=== PATIENT | male | born 1930 | race Caucasian/White ===

== ENCOUNTER 2019-01-27 14:49 | Inpatient (IN) | payer MEDICARE ==
[~2019-01-27] VITALS: Ht 165.1 cm; Wt 59.5 kg
[~2019-01-27 14:49] MED LIST: ALPRAZOLAM0.25 M1 PO; ASPIRIN81 M2 PO; FERROUS GLUCON324 M1 PO; LACTOBACILLUS; LIDOCAINE; POTASSIUM 8 MEQ; TERAZOSIN HCL2 M1 PO; Z.0.AMIODARONE HCL20 PO; Z.0.COUMADIN2.5 MG PO; Z.0.FINASTERIDE5 MG PO; Z.0.LEVOTHYROXINE25 PO; Z.0.MAGNESIUM400 MG; Z.0.METOPROLOL SUCC5 PO; Z.0.OMEPRAZOLE20 MG PO; Z.0.SIMVASTATIN10 MG PO; Z.0.TAMSULOSIN HCL0. PO; Z.0.ULTRAM50 MG PO; [UNRECOGNIZED DRUG - OTHER]
[2019-01-27 15:30] LABS: BASOPHILS # (AUTO) 0.1 (0.0-0.1); BASOPHILS % 0.6 % (0.0-1.0); EOSINOPHILS % 0.4 % (0.0-6.0); HEMATOCRIT 32.6 % (38.2-49.6); LYMPHOCYTES # (AUTO) 1.2 (1.0-3.2); LYMPHOCYTES % 10.2 % (18.0-39.1); MEAN CORPUSCULAR HEMOGLOBIN 26.2 pg (28-32); MEAN CORPUSCULAR HGB CONC 30.7 g/dL (31-35); MEAN CORPUSCULAR VOLUME 85.6 fL (81-99); MONOCYTES # (AUTO) 1.4 (0.2-0.8); MONOCYTES % 12.2 % (4.4-11.3); NEUTROPHILS # (AUTO) 8.7 (2.1-6.9); NEUTROPHILS % 76.2 % (38.7-80.0); PLATELET COUNT 287 x10e3/uL (140-360); RED BLOOD COUNT 3.81 x10e6/uL (4.3-5.7); RED CELL DISTRIBUTION WIDTH 17.7 % (11.7-14.4)
[2019-01-27 15:30] LABS: ABG HCO3 23 mmol/L (23-28); ABG PCO2 40 mmHg (41-51); ABG PH 7.37 (7.31-7.41); ABG PO2 57 mmHg (80-105)
[2019-01-27 15:38] LABS: PROTHROMBIN TIME 13.7 seconds (11.9-14.5)
[2019-01-27 15:39] LABS: PARTIAL THROMBOPLASTIN TIME 29.7 seconds (23.8-35.5)
[2019-01-27 15:45] LABS: ALBUMIN 2.8 g/dL (3.5-5.0); ALBUMIN/GLOBULIN RATIO 0.9 (0.8-2.0); ANION GAP 13.2 mmol/L (8-16); CALCIUM 7.9 mg/dL (8.4-10.2); CREATININE, SERUM 1.61 mg/dL (0.72-1.25); POTASSIUM 4.2 mmol/L (3.5-5.1)
[2019-01-27 15:52] LABS: CREATINE KINASE MB 1.1 ng/mL (0-5.0)
--- NOTE | 2019-01-27 16:22 | Diagnostic Imaging Report ---
EXAM: CHEST SINGLE (PORTABLE) DATE: 01/27/2019 3:04 PM INDICATION: Sepsis COMPARISON: None FINDINGS: Lines and tubes: None Heart size normal. No focal pulmonary opacity, pleural effusion or pneumothorax. There is mild interstitial prominence in the lungs, possibly chronic. Calcified granulomata are seen bilaterally. Upper abdomen unremarkable. No acute bony abnormality. IMPRESSION: No evidence for acute disease. Likely chronic interstitial prominence in the lungs. Signed by: Dr. Parvez Echevarria M.D. on 01/27/2019 4:19 PM
[2019-01-27] MEDS ORDERED: SODIUM CHLORIDE 0.9% 1000ML 1,000 ML IV ONE (16:30)
[2019-01-27 16:42] LABS: CLARITY,URINE SL CLOUDY (CLEAR); COLOR,URINE STRAW (YELLOW); LEUKOCYTE ESTERASE ,URINE TRACE (NEGATIVE); NITRITE,URINE NEGATIVE (NEGATIVE); PROTEIN,URINE DIPSTICK TRACE (NEGATIVE)
[2019-01-27 16:43] LABS: BILIRUBIN,URINE NEGATIVE (NEGATIVE); KETONES,URINE TRACE (NEGATIVE); URINE UROBILINOGEN 0.2 mg/dL (0.2 - 1)
[2019-01-27 17:03] LABS: BACTERIA,URINE MANY /HPF; WBC,URINE (MAN) 0-5 /HPF (0-5)
[2019-01-27] MEDS ORDERED: CILOSTAZOL100 MG PO (17:21)
[2019-01-27] MEDS ORDERED: PLAVIX75 MG PO (17:21)
[2019-01-27] MEDS ORDERED: SUCCINYLCHOLINE CHLORIDE 20 MG/ML 10ML VIAL ONE (18:45)
[2019-01-27] MEDS ORDERED: SODIUM CHLORIDE 0.9% 1000ML 1,000 ML IV SCH (18:45)
--- NOTE | 2019-01-27 18:50 | NUR ---
VERBAL REPORT GIVEN TO AUGUSTO GORMAN.
[2019-01-27] MEDS: SODIUM CHLORIDE 0.9% 1000ML 1,000 ML IV SCH (19:34)
[2019-01-27] MEDS ORDERED: AZITHROMYCIN 500MG/SOD CHL 0.9% 250ML BAG IV SCH (19:45)
[2019-01-27] MEDS ORDERED: CEFTRIAXONE SOD 1 GRAM/0.9% SOD CHL 50ML BAG IV SCH (19:45)
[2019-01-27] MEDS: ALBUTEROL SULF 0.083% NEB SOLN 3 ML NEB NEB SCH ×2 (19:45→23:00)
--- NOTE | 2019-01-27 20:07 | Diagnostic Imaging Report ---
EXAM: CT Chest WITH contrast (PE Protocol) 01/27/2019 6:45 PM INDICATION: Weakness. ^PE PROTOCOL COMPARISON: Chest x-ray 01/27/2019. 06/28/2010. CT abdomen and pelvis 06/27/2010. TECHNIQUE: Chest was scanned utilizing a multidetector helical scanner from the lung apex through the level of the adrenal glands without administration of IV contrast. Coronal and sagittal reformations were obtained. Routine protocol was performed. Pulmonary embolism protocol was performed. MIP coronal and sagittal reformats were performed by the technologist at the scanner workstation. IV CONTRAST: 100 mL of Isovue 370 COMPLICATIONS: None RADIATION DOSE: Total DLP: 535.17 mGy*cm Estimated effective dose: (DLP x 0.014 x size factor) mSv CTDIvol has been reviewed. It is below the limits set by the Radiation Protocol Committee (RPC). Dose modulation, iterative reconstruction, and/or weight based adjustment of the mA/kV was utilized to reduce the radiation dose to as low as reasonably achievable. FINDINGS: LINES/ TUBES: None. LUNGS AND AIRWAYS: Severe centrilobular emphysematous changes throughout bilateral lungs. Bilateral apical pleural parenchymal scarring, likely related to old infection. Multiple scattered calcified granulomas in the lungs, likely old granulomatous infection such as tuberculosis. Bilateral lower lobe atelectasis, right greater than left. There is interlobular septal thickening especially in the dependent portions of the right upper lobe as well as in the right lower lobe. PLEURA: Small bilateral pleural effusions, right greater than left. HEART AND MEDIASTINUM: The thyroid gland is normal. No mediastinal, hilar or axillary lymphadenopathy. Small mediastinal lymph nodes. 1.1 cm subcarinal lymph node (series 2, image 65). 0.6 cm right hilar lymph node (image 65). Multiple other smaller right hilar and right infrahilar lymph nodes. Small left hilar lymph nodes. Calcified bilateral hilar lymph nodes. The heart is normal in size. There is straightening of the intraventricular septum. Enlargement of the right atrium. Mild reflux of contrast into the hepatic veins. There is no pericardial effusion. There are moderate atherosclerotic calcifications in the aorta and coronary arteries. Main pulmonary artery measures 3.1 cm. The ascending aorta measures 3.4 cm. 6.2 x 2.5 x 2.4 cm fat-containing right Bochdalek hernia. UPPER ABDOMEN: Punctate dystrophic calcifications in the posterior right hepatic lobe in segment 5/6 adjacent to the liver capsule with capsular retraction, likely sequela of old granulomatous disease. Mild periportal edema. 0.7 cm cystic lesion in segment 4A (series 2, image 129). Liver is hyperdense measuring 80 Hounsfield units. Spleen as comparison measures 48 Hounsfield units. Coarse dystrophic calcifications in the spleen. Cholecystectomy clips. BONES: The visualized bony thorax is within normal limits. SOFT TISSUES: Unremarkable. IMPRESSION: 1. No pulmonary emboli. 2. Severe centrilobular emphysema. 3. Findings of old granulomatous disease, with calcified hilar lymph nodes, lung parenchyma calcifications, and hepatic and splenic granulomas. 4. Small bilateral pleural effusions. 5. Interlobular septal thickening in the dependent portion of the right upper lobe and in the right lower lobe with associated right hilar lymph nodes. This likely represents focal pneumonia. However, recommend repeat CT after resolution of symptoms to exclude possible underlying lung malignancy with lymphangitic spread of tumor. 6. Findings of the elevated right heart pressure with enlarged right atrium and reflux of contrast into the hepatic veins. 7. Hyperdense liver. Correlate for amiodarone use. Signed by: Dr. Francisco Rodriguez M.D. on 01/27/2019 8:04 PM
[2019-01-27] MEDS: CEFTRIAXONE SOD 1 GM/NS 50 ML 50 ML IV SCH (20:30)
--- OUTSIDE RECORDS SUMMARY | 2019-01-27 20:37 | XMS REPORT ---
Author Author [facility] Address Unknown Phone Unavailable Care Team Providers Care Clothes Separator Name Role Phone Spencer GONZALES Unavailable Unavailable Problems This patient has no known problems. Allergies, Adverse Reactions, Alerts This patient has no known allergies or adverse reactions. Medications This patient has no known medications. Results Test Description Test Time Test Comments Text Results Atomic Results Result Comments CT CHEST W 2019-01-27 19:45:00 [place] [address] Patient Name: GIOVANA VALERA MR #: [id number] : 1930 Age/Sex: 88/M Req #: [id number] Adm Physician: Ordered by: YAMILEX GONZALES MD Report #: [id number] Location: ER Room/Bed: Procedure: [id number] CT/CT CHEST W Exam Date: 01/27/19 Exam Time: 1929 REPORT STATUS: Signed EXAM: CT Chest WITH contrast (PE Protocol) 01/27/2019 6:45 PM INDICATION: Weakness. PE PROTOCOL COMPARISON: Chest x-ray 01/27/2019. 06/28/2010. CT abdomen and pelvis 06/27/2010. TECHNIQUE: Chest was scanned utilizing a multidetector helical scanner from the lung apex through the level of the adrenal glands without administration of IV contrast. Coronal and sagittal reformations were obtained. Routine protocol was performed. Pulmonary embolism protocol was performed. MIP coronal and sagittal reformats were performed by the technologist at the scanner workstation. IV CONTRAST: 100 mL of Isovue 370 COMPLICATIONS: None RADIATION DOSE: Total DLP: 535.17 mGy*cm Estimated effective dose: (DLP x 0.014 x size factor) mSv CTDIvol has been reviewed. It is below the limits set by the Radiation Protocol Committee (RPC). Dose modulation, iterative reconstruction, and/or weight based adjustment of the mA/kV was utilized to reduce the radiation dose to as low as reasonably achievable. FINDINGS: LINES/ TUBES: None. LUNGS AND AIRWAYS: Severe centrilobular emphysematous changes throughout bilateral lungs. Bilateral apical pleural parenchymal scarring, likely related to old infection. Multiple scattered calcified granulomas in the lungs, likely old granulomatous infection such as tuberculosis. Bilateral lower lobe atelectasis, right greater than left. There is interlobular septal thickening especially in the dependent portions of the right upper lobe as well as in the right lower lobe. PLEURA: Small bilateral pleural effusions, right greater than left. HEART AND MEDIASTINUM: The thyroid gland is normal. No mediastinal, hilar or axillary lymphadenopathy. Small mediastinal lymph nodes. 1.1 cm subcarinal lymph node (series 2, image 65). 0.6 cm right hilar lymph node (image 65). Multiple other smaller right hilar and right infrahilar lymph nodes. Small left hilar lymph nodes. Calcified bilateral hilar lymph nodes. The heart is normal in size. There is straightening of the intraventricular septum. Enlargement of the right atrium. Mild reflux of contrast into the hepatic veins. There is no pericardial effusion. There are moderate atherosclerotic calcifications in the aorta and coronary arteries. Main pulmonary artery measures 3.1 cm. The ascending aorta measures 3.4 cm. 6.2 x 2.5 x 2.4 cm fat-containing right Bochdalek hernia. UPPER ABDOMEN: Punctate dystrophic calcifications in the posterior right hepatic lobe in segment 5/6 adjacent to the liver capsule with capsular retraction, likely sequela of old granulomatous disease. Mild periportal edema. 0.7 cm cystic lesion in segment 4A (series 2, image 129). Liver is hyperdense measuring 80 Hounsfield units. Spleen as comparison measures 48 Hounsfield units. Coarse dystrophic calcifications in the spleen. Cholecystectomy clips. BONES: The visualized bony thorax is within normal limits. SOFT TISSUES: Unremarkable. IMPRESSION: 1. No pulmonary emboli. 2. Severe centrilobular emphysema. 3. Findings of old granulomatous disease, with calcified hilar lymph nodes, lung parenchyma calcifications, and hepatic and splenic granulomas. 4. Small bilateral pleural effusions. 5. Interlobular septal thickening in the dependent portion of the right upper lobe and in the right lower lobe with associated right hilar lymph nodes. This likely represents focal pneumonia. However, recommend repeat CT after resolution of symptoms to exclude possible underlying lung malignancy with lymphangitic spread of tumor. 6. Findings of the elevated right heart pressure with enlarged right atrium and reflux of contrast into the hepatic veins. 7. Hyperdense liver. Correlate for amiodarone use. Signed by: Dr. Alo Rodriguez M.D. on 01/27/2019 8:04 PM Dictated By: ALO RODRIGUEZ MD 03 Transcribed By: RIZWAN on 01/27/192003 COPY TO: YAMILEX GONZALES MD CHEST SINGLE (PORTABLE) 2019-01-27 16:17:00 [place] [address] Patient Name: GIOVANA VALERA MR #: [id number] : 1930 Age/Sex: 88/M Req #: [id number] Adm Physician: Ordered by: YAMILEX GONZALES MD Report #: [id number] Location: ER Room/Bed: Procedure: [id number] DX/CHEST SINGLE (PORTABLE) Exam Date: 01/27/19 Exam Time: 1515 REPORT STATUS: Signed EXAM: CHEST SINGLE (PORTABLE) DATE: 01/27/2019 3:04 PM INDICATION: Sepsis COMPARISON: None FINDINGS: Lines and tubes: None Heart size normal. No focal pulmonary opacity, pleural effusion or pneumothorax. There is mild interstitial prominence in the lungs, possibly chronic. Calcified granulomata are seen bilaterally. Upper abdomen unremarkable. No acute bony abnormality. IMPRESSION: No evidence for acute disease. Likely chronic interstitial prominence in the lungs. Signed by: Dr. Yamilex Messina M.D. on 01/27/2019 4:19 PM Dictated By: YAMILEX MESSINA MD 1619 Transcribed By: RIZWAN on 01/27/19 1619 COPY TO: YAMILEX GONZALES MD
[2019-01-27] MEDS: AZITHROMYCIN 500MG/NS 250 ML 250 ML IV SCH (20:54)
--- NOTE | 2019-01-27 21:15 | NUR ---
PT ARRIVED TO THE UNIT FROM ER IN A STRETCHER.AAOX2.HAS SHORTNESS OF BREATH.NO RESP.DISTRESS.HAS PAIN @ R.SHOULDER.HUMIDIFIED O2 4L NC GETTING.IV NS 125 RUNNING TO L.HAND #18.CONDOM CONNECTED TO SUCTION WALL.ADMISSION ASSESSMENT DONE.BED ALARM ON.BED LOCKED AND IN LOWEST POSITION.ORIENTED TO THE UNIT.PHONE AND CALL LIGHT WITHIN REACH.INSTRUCTED TO CALL FOR ASSISTANCE NEEDED.
[2019-01-27 21:19] VITALS: BP 140/67
[2019-01-27 21:45] VITALS: BP 140/67
[2019-01-27 22:00] VITALS: BP 140/67
[2019-01-27] MEDS ORDERED: SODIUM CHLORIDE 0.9% 50ML 50 ML ONE (23:28)
[2019-01-27] MEDS ORDERED: IOPAMIDOL 370 MG/ML 200 ML INFUS..BTL INJ ONE (23:28)
[2019-01-27] MEDS ORDERED: TEMAZEPAM15 MG PO (23:30)
[2019-01-28] VITALS (7 sets, daily range): BP systolic 115–197; BP diastolic 62–91
[2019-01-28] MEDS ORDERED: TRAMADOL HCL 50 MG TAB PO ONE (00:30)
[2019-01-28] MEDS: IPRATROPIUM BROMIDE 0.02% 2.5 ML NEB NEB SCH ×4 (01:00→21:05)
--- NOTE | 2019-01-28 01:13 | NUR ---
PAGED TO TO GET ORDER TO RENEW PAIN MED,BP MED AND TEMAZEPAM.CONTD.BLOOD DRAWN AND SENT TO THE LAB FOR CARDIAC MARKERS.KEEP MONITOR THE PT.
--- NOTE | 2019-01-28 01:27 | NUR ---
BRUISES NOTED BILATERAL ARMS AND SKIN TEAR NOTED BOTH ARMS.
[2019-01-28 01:48] LABS: CREATINE KINASE MB 1.7 ng/mL (0-5.0)
[2019-01-28] MEDS: SODIUM CHLORIDE 0.9% 1000ML 1,000 ML IV SCH ×3 (02:17→19:07)
[2019-01-28] MEDS ORDERED: TEMAZEPAM 15 MG CAP PO ONE (02:30)
[2019-01-28] MEDS: ALBUTEROL SULF 0.083% NEB SOLN 3 ML NEB NEB SCH ×5 (03:00→21:05)
--- NOTE | 2019-01-28 04:35 | NUR ---
Stable condition.provided sputum container and explained to the pt. is in the unit to see the pt.
[2019-01-28] MEDS ORDERED: CLONIDINE HCL 0.1 MG TAB PO PRN (05:00)
--- NOTE | 2019-01-28 06:00 | NUR ---
Chest x ray taken .refused to put yellow socks.scd applied.tele #[address] with contd.pulse oxy.urine draining well.
[2019-01-28 06:06] LABS: BASOPHILS % 0.3 % (0.0-1.0); EOSINOPHILS % 0.4 % (0.0-6.0); HEMATOCRIT 31.8 % (38.2-49.6); HEMOGLOBIN 9.7 g/dL (14.0-18.0); LYMPHOCYTES # (AUTO) 1.1 (1.0-3.2); LYMPHOCYTES % 9.6 % (18.0-39.1); MEAN CORPUSCULAR HEMOGLOBIN 25.9 pg (28-32); MEAN CORPUSCULAR HGB CONC 30.5 g/dL (31-35); MONOCYTES # (AUTO) 1.4 (0.2-0.8); MONOCYTES % 12.5 % (4.4-11.3); NEUTROPHILS # (AUTO) 8.6 (2.1-6.9); NEUTROPHILS % 76.5 % (38.7-80.0); PLATELET COUNT 239 x10e3/uL (140-360); RED BLOOD COUNT 3.74 x10e6/uL (4.3-5.7); RED CELL DISTRIBUTION WIDTH 17.8 % (11.7-14.4)
--- NOTE | 2019-01-28 06:13 | Diagnostic Imaging Report ---
EXAM: CHEST SINGLE (PORTABLE) DATE: 01/28/2019 5:00 AM INDICATION: Pneumonia. COMPARISON: 01/27/2019. FINDINGS: Lines and tubes: None Heart size normal. Bilateral pulmonary emphysema. Bilateral trace pleural effusions. No pneumothorax. Redemonstration of coarsening of the pulmonary interstitium particularly in the right upper lobe. Calcified granulomata are seen bilaterally. Upper abdomen unremarkable. No acute bony abnormality. IMPRESSION: No significant interval change. Coarsening chronic coarsening of the pulmonary interstitium particularly in the right upper lobe. Healed granulomatous disease. Signed by: Dr. Shawn Mann M.D. on 01/28/2019 6:10 AM
[2019-01-28 06:31] LABS: ANION GAP 11.1 mmol/L (8-16); BLOOD UREA NITROGEN 18 mg/dL (7-26); BUN/CREATININE RATIO 21 (6-25); CALCIUM 7.4 mg/dL (8.4-10.2); CARBON DIOXIDE 23 mmol/L (22-29); CHLORIDE 106 mmol/L (98-107); CREATININE, SERUM 0.84 mg/dL (0.72-1.25); EST GLOMERULAR FILTRATION RATE > 60 ML/MIN (60-); GLUCOSE 114 mg/dL (74-118); POTASSIUM 4.1 mmol/L (3.5-5.1); SODIUM 136 mmol/L (136-145)
--- NOTE | 2019-01-28 06:56 | NUR ---
REPORT GIVEN TO THE ONCOMING RN.WALKING ROUNDS DONE.STABLE CONDITION.
--- NOTE | 2019-01-28 07:16 | NUR ---
Received patient and walking rounds complete. Patient resting at this time no signs of distress. Call light in reach, will continue to monitor.
[2019-01-28] MEDS: ASPIRIN 325 MG TAB PO SCH (08:54)
[2019-01-28] MEDS: CILOSTAZOL 100 MG TAB PO SCH ×2 (08:54→16:02)
[2019-01-28] MEDS: LEVOTHYROXINE SODIUM 112 MCG TAB PO SCH (08:54)
[2019-01-28] MEDS: AMIODARONE HCL 200 MG TAB PO SCH (08:54)
[2019-01-28] MEDS: CLOPIDOGREL BISULFATE 75 MG TAB PO SCH (08:54)
[2019-01-28] MEDS: METOPROLOL SUCCINATE 50 MG TAB XL PO SCH ×2 (08:54→16:02)
[2019-01-28] MEDS: ALPRAZOLAM 0.25 MG TAB PO SCH ×2 (08:55→16:02)
[2019-01-28] MEDS: TRAMADOL HCL 50 MG TAB PO SCH ×3 (08:55→21:02)
--- NOTE | 2019-01-28 11:00 | NUR ---
Patient A/O X2, even respirations on 4LNC humidified. Bowel sounds active, no edema. Bruising on upper extremities bilaterally. Left hand 18 gauge IV with NS @ 125mls/hr. SCD's in place bilaterally, condom catheter in place to suction with clear yellow urine. Call light in reach, will continue to monitor.
[2019-01-28 15:04] LABS: CREATINE KINASE MB 2.8 ng/mL (0-5.0)
--- NOTE | 2019-01-28 15:20 | NUR ---
Paged Dr. Rowell to notify him of Troponin results. Waiting for call back at this time.
--- NOTE | 2019-01-28 15:27 | NUR ---
Spoke with Dr. Rowell regarding elevated troponin. Orders to repeat troponin lab in 8 hours.
[2019-01-28] MEDS: CEFTRIAXONE SOD 1 GM/NS 50 ML 50 ML IV SCH (20:10)
--- NOTE | 2019-01-28 20:10 | NUR ---
PT IS CONFUSED @ TIMES.BED ALARM IS ON.BED LOCKED AND IN LOWEST POSITION.R.SHOULDER PAIN VOICED .PAIN MEDICATION GIVEN.CONDOM CATHETER IS CONNECTING TO SUCTION WALL AND URINE DRAINING.PHONE AND CALL LIGHT WITHIN REACH.
[2019-01-28] MEDS: AZITHROMYCIN 500MG/NS 250 ML 250 ML IV SCH (20:40)
[2019-01-28] MEDS: TEMAZEPAM 15 MG CAP PO SCH (21:01)
[2019-01-28] MEDS: FINASTERIDE 5 MG TAB PO SCH (21:01)
[2019-01-28] MEDS: TAMSULOSIN HCL 0.4 MG CAP PO SCH (21:01)
--- NOTE | 2019-01-28 22:57 | NUR ---
Blood drawn and sent to the lab for troponin.
[2019-01-29] MEDS: ALBUTEROL SULF 0.083% NEB SOLN 3 ML NEB NEB SCH ×7 (00:30→23:49)
[2019-01-29 00:44] VITALS: BP 127/63
[2019-01-29 04:00] VITALS: BP 156/72
[2019-01-29] MEDS: IPRATROPIUM BROMIDE 0.02% 2.5 ML NEB NEB SCH ×5 (04:10→23:49)
[2019-01-29] MEDS: SODIUM CHLORIDE 0.9% 1000ML 1,000 ML IV SCH ×3 (04:57→19:34)
--- NOTE | 2019-01-29 06:50 | NUR ---
REPORT GIVEN TO THE ONCOMING RN.WALKING ROUNDS DONE.STABLE CONDITION.
--- NOTE | 2019-01-29 07:00 | NUR ---
Received patient mid fowlers position, side rails upx2, call light within reach, bed alarm on. AAOX2 to person,place. Oriented patient to time. Respirations even and unlabored. O2 4L NC. Instructed patient to use call light for assistance. Will continue to monitor.
[2019-01-29] MEDS: CLOPIDOGREL BISULFATE 75 MG TAB PO SCH (08:21)
[2019-01-29] MEDS: ASPIRIN 325 MG TAB PO SCH (08:21)
[2019-01-29] MEDS: LEVOTHYROXINE SODIUM 112 MCG TAB PO SCH (08:21)
[2019-01-29] MEDS: AMIODARONE HCL 200 MG TAB PO SCH (08:21)
[2019-01-29] MEDS: CILOSTAZOL 100 MG TAB PO SCH ×2 (08:21→15:45)
[2019-01-29] MEDS: METOPROLOL SUCCINATE 50 MG TAB XL PO SCH ×2 (08:21→16:00)
[2019-01-29 08:22] VITALS: BP 131/70
[2019-01-29] MEDS: TRAMADOL HCL 50 MG TAB PO SCH ×3 (08:22→22:25)
[2019-01-29] MEDS: ALPRAZOLAM 0.25 MG TAB PO SCH ×2 (08:22→15:45)
[2019-01-29 12:00] VITALS: BP 133/63
[2019-01-29] MEDS ORDERED: HYDROCODONE/APAP 10MG-325MG TAB PO PRN (16:00)
[2019-01-29 16:59] VITALS: BP 125/57
--- NOTE | 2019-01-29 17:50 | NUR ---
CASE MANAGEMENT INITIAL ASSESSMENT Gunsmith Apprentice to bedside to discuss plan of care with patient/family. CM/SW role and care transitions discussed. Anticipated discharge plan discussed along with duration of care. CM/SW discussed patients right to make decisions in care. CM/SW work hours given. Patient lives: Admit/Transfer: ER Hospital/ER visits since last admit:0 POA/Emergency contact: MICHAEL VALERA [phone] Current/Previous Home Health: [facility] PCP/Follow-up Care: DR GONZALEZ Current/Previous DME: [facility] 40 HRS A WEEK Medications (referring to index hospitalization or the first time you were in the hospital) a. Were changes made in your medications when you were in the hospital on [date of index hospitalization]? Yes No Not sure Explain: Note: If no or not sure, please skip to question d b. Did you understand the changes? Yes No Explain: c. Were you able to obtain your new medications right away? Yes No n/a SNF only Explain: d. Were you able to take your medications like the doctor wanted you to? Yes No Explain: e. Did the hospital give you an accurate, easy to understand list of medications when you left? Yes No n/a SNF only Explain: Scale of 1-10 how comfortable does patient feel with disease management in outpatient settin Other Services: PROVIDERS Employment Status: RETIRED Areas of Concerns: NONE Referral Needs: MAY NEED HOME HEALTH Education Needs: F/U APPT'S IMM/HARP given and signed (if applicable): IMM ON ADMIT Goal for discharge:SNF VS HOME WITH HOME HEALTH CM/SW left business card at the bedside with contact information. Name and number was also written on the patients whiteboard. Patient verbalized understanding of discussion. CM will follow-up with ongoing discharge and transition of care needs.
--- NOTE | 2019-01-29 18:12 | NUR ---
IMM EXPLAINED, SIGNED AND ON CHART COPY TO PT IN CARE TRASITION FOLDER
--- NOTE | 2019-01-29 18:15 | NUR ---
Left hand IV leaking. IV discontinued. 2x2 gauze and paper tape placed. Attempted to start IV, but unable to.
--- NOTE | 2019-01-29 19:00 | NUR ---
Report given to oncoming nurse of patient's status. NO s/s of acute distress noted. Oncoming nurse aware patient does not have IV at this time.
--- NOTE | 2019-01-29 19:30 | NUR ---
Patient laying in bed with HOB slightly elevated. No sob noted. no acute distress noted. Patient reports on no pain at this time, 0/10. Reminded patient to utilize call light when assistance is needed. Bed at low position and locked. Patient in stable condition and will continue to monitor.
[2019-01-29 20:00] VITALS: BP 117/77
[2019-01-29] MEDS: TEMAZEPAM 15 MG CAP PO SCH (22:25)
[2019-01-29] MEDS: FINASTERIDE 5 MG TAB PO SCH (22:25)
[2019-01-29] MEDS: TAMSULOSIN HCL 0.4 MG CAP PO SCH (22:25)
[2019-01-29] MEDS: CEFTRIAXONE SOD 1 GM/NS 50 ML 50 ML IV SCH (22:25)
[2019-01-29] MEDS: AZITHROMYCIN 500MG/NS 250 ML 250 ML IV SCH (23:00)
[2019-01-30] VITALS (19 sets, daily range): BP systolic 94–162; BP diastolic 55–107
--- NOTE | 2019-01-30 02:30 | NUR ---
Patient noted with SOB and desaturation of 85% on o2 at [address] Rocha notified. Received orders for Bipap, CXR, BMP, Transfer to IMCU, change rate of IV fluid to 50cc/hr, and consultation by Dr. Costello.
[2019-01-30] MEDS: ALBUTEROL SULF 0.083% NEB SOLN 3 ML NEB NEB SCH ×6 (02:38→22:13)
--- NOTE | 2019-01-30 02:38 | Diagnostic Imaging Report ---
EXAM: CHEST SINGLE (PORTABLE) DATE: 01/30/2019 2:12 AM INDICATION: Pneumonia. Shortness of breath. Placed on CPAP. COMPARISON: 01/28/2019. FINDINGS: Lines and tubes: None Heart size normal. Bilateral pulmonary emphysema. Mild prominence of the pulmonary vasculature bilaterally. Bilateral trace pleural effusions. No pneumothorax. Redemonstration of coarsening of the pulmonary interstitium particularly in the right upper lobe. Interval development of patchy density in the right lower lobe which may represent developing pneumonia. Calcified granulomata are seen bilaterally. Upper abdomen unremarkable. No acute bony abnormality. IMPRESSION: Interval development of patchy density in the right lower lobe which may represent developing pneumonia superimposed on chronic changes. Signed by: Dr. Shawn Mann M.D. on 01/30/2019 2:35 AM
[2019-01-30 03:29] LABS: ANION GAP 14.1 mmol/L (8-16); BLOOD UREA NITROGEN 19 mg/dL (7-26); BUN/CREATININE RATIO 23 (6-25); CALCIUM 7.8 mg/dL (8.4-10.2); CARBON DIOXIDE 22 mmol/L (22-29); CHLORIDE 112 mmol/L (98-107); CREATININE, SERUM 0.81 mg/dL (0.72-1.25); EST GLOMERULAR FILTRATION RATE > 60 ML/MIN (60-); GLUCOSE 134 mg/dL (74-118); POTASSIUM 4.1 mmol/L (3.5-5.1); SODIUM 144 mmol/L (136-145)
--- NOTE | 2019-01-30 04:30 | NUR ---
Patient alert with confusion, O2 at 15 LPM by rebreather mask. Report given to RN in IMCU, patient was transferred to IMCU room 199.
--- NOTE | 2019-01-30 04:35 | NUR ---
Report received from AUGUSTO Maloney.Patient received alert/oriented x1-2,little confused and agitated. Patient continued on 15liters oxygen via non-rebreather mask,Spo2 maintained 100%. V/S WNL. bed in lower position,locked. Will continue to monitor. Addendum: 01/30/19 at 0637 by Angelia Taylor RN wrong charting
--- NOTE | 2019-01-30 04:45 | NUR ---
Report received from AUGUSTO Maloney.Patient received alert/oriented x1,confused and agitated/disoriented. Patient continued on 15liters oxygen via non-rebreather mask,Spo2 maintained 100%. V/S WNL. bed in lower position,locked. Will continue to monitor.
[2019-01-30] MEDS: SODIUM CHLORIDE 0.9% 1000ML 1,000 ML IV SCH (05:23)
[2019-01-30] MEDS: IPRATROPIUM BROMIDE 0.02% 2.5 ML NEB NEB SCH ×4 (07:00→22:13)
--- NOTE | 2019-01-30 07:11 | NUR ---
Report given to AM nurse,walking round done.
[2019-01-30 07:14] LABS: ABG PCO2 47 mmHg (41-51); ABG PO2 194 mmHg (80-105)
[2019-01-30 07:15] LABS: ABG HCO3 23 mmol/L (23-28)
--- NOTE | 2019-01-30 07:45 | NUR ---
rapid response called, patient is hypoxic on room air, agitated and refusing to wear o2. boubacar gonsalez and roosevelt at bedside, decision made to intubate patient. patient transferred to icu.
[2019-01-30] MEDS: ASPIRIN 325 MG TAB PO SCH (08:00)
[2019-01-30] MEDS: LEVOTHYROXINE SODIUM 112 MCG TAB PO SCH (08:00)
[2019-01-30] MEDS: TRAMADOL HCL 50 MG TAB PO SCH ×3 (08:00→20:53)
[2019-01-30] MEDS: METOPROLOL SUCCINATE 50 MG TAB XL PO SCH ×2 (08:00→16:45)
[2019-01-30] MEDS: CLOPIDOGREL BISULFATE 75 MG TAB PO SCH (08:00)
[2019-01-30] MEDS: AMIODARONE HCL 200 MG TAB PO SCH (08:00)
--- NOTE | 2019-01-30 08:25 | NUR ---
PT FOUND TAKING NONREBREATHER MASK OFF, ATTEMPTED TO PUT PATIENT ON BIPAP. PT TOOK MASK OFF BECAME AGITATED AND IS REFUSING SATS AT 84-86% AT THIS TIME THIS RN UNABLE TO PLACE ANY MASK ON PATIENT. RAPID RESPONSE CALLED. ER MD IN ROOM AND RAPID TEAM.
[2019-01-30] MEDS ORDERED: METOPROLOL TARTRATE INJ 1 MG/ML VIAL ONE (08:42)
[2019-01-30] MEDS ORDERED: PROPOFOL IV EMULSION 10MG/ML 100 ML IV SCH (08:45)
[2019-01-30 08:59] LABS: % IRON SATURATION 4 % (15-50); IRON 14 ug/dL (65-175); TOTAL IRON BINDING CAPACITY 343 ug/dL (261-478); TRANSFERRIN 245 mg/dL (174-364)
[2019-01-30] MEDS ORDERED: VANCOMYCIN 500MG/NS 0.9% 100ML 100 ML IV SCH (09:00)
[2019-01-30] MEDS: ALPRAZOLAM 0.25 MG TAB PO SCH ×2 (09:00→16:45)
[2019-01-30] MEDS: CILOSTAZOL 100 MG TAB PO SCH ×2 (09:00→16:45)
--- NOTE | 2019-01-30 09:23 | Diagnostic Imaging Report ---
EXAMINATION: CHEST SINGLE (PORTABLE) INDICATION: ^intubated ^[id number] ^0830 COMPARISON: 01/02/2019 at 0221 hours FINDINGS: AP view TUBES and LINES: Status post intubation with tip probably 2 cm above joe. LUNGS: Lungs are well inflated. Persistent pulmonary vascular congestion and moderate pulmonary edema. PLEURA: No pneumothorax. Suspected small bilateral pleural effusions. HEART AND MEDIASTINUM: The cardiomediastinal silhouette is enlarged on this AP view. BONES AND SOFT TISSUES: No acute osseous lesion. Soft tissues are unremarkable. UPPER ABDOMEN: No free air under the diaphragm. IMPRESSION: Interval intubation. Pulmonary vascular congestion and moderate interstitial edema. Underlying pneumonia in the perihilar regions cannot be excluded in the appropriate clinical context. Suspected small bilateral pleural effusions. Signed by: Dr. Yon Chappell MD on 01/30/2019 9:20 AM
[2019-01-30 09:28] LABS: FREE THYROXINE INDEX 4.4736 (1.4-3.8); THYROID STIMULATING HORMONE 0.106 uIU/mL (0.350-4.940)
--- NOTE | 2019-01-30 09:45 | Progress Note ---
DATE: 01/30/2019 Progress Note SUBJECTIVE: An 88-year-old male, who was found to be tachypneic yesterday, increased need for oxygen, hypoxic, and also tachycardic. The patient was transferred down to [facility] for better monitoring and also for telemetry monitoring. The patient is currently alert and oriented x2 and mental status has changed since yesterday. MEDICATIONS: Currently, the patient is on albuterol sulfate p.r.n., alprazolam, amiodarone, aspirin, azithromycin, Rocephin, clonidine, hydrocodone, levothyroxine, metoprolol, tamsulosin, temazepam, and tramadol. OBJECTIVE: VITAL SIGNS: Temperature is 97.9, pulse of 96, respirations of 15, and pulse oximetry 100% on non-rebreather. The patient is also on BiPAP. HEENT: Normocephalic and atraumatic. Multiple ecchymoses seen in the body. CVS: S1 and S2, irregularly irregular. ABDOMEN: Nontender and nondistended. LUNGS: Decreased air entry into all crenshaw, positive for rhonchi bilaterally. Also, right-sided rhonchi present. ABDOMEN: Nontender and nondistended. LABORATORY VALUES: Here from yesterday, white count is 11.22 and hemoglobin of 9.7. Chemistries show a sodium of 144, potassium is 3.1, BUN was 19, and creatinine 0.81. Calcium 7.8. The urine is essentially normal. The patient's D-dimer was 1.34. ASSESSMENT: 1. Acute mental status change. 2. Acute hypoxia. 3. Hypertension. 4. Hyperlipidemia. 5. Pneumonia. PLAN: The patient is on albuterol and Atrovent. We will continue with that treatment. Hypoxia, we will continue with non-rebreather and BiPAP. The patient will get an ABG right now. Consult with Dr. Lanier or Dr. Costello has been done. For acute mental status changes, we will take him off his alprazolam and also discontinue his sedatives, temazepam. For and hypertension, continue with his CV medications, including his and Pletal. Further recommendation per clinical course. The patient is critically ill. We will need further recommendations pending the ABG. Family will be notified and we will continue to monitor the patient. MD PHILLIP Abdullahi/MODL /[id number]
[2019-01-30 10:08] LABS: BASOPHILS # (AUTO) 0.1 (0.0-0.1); BASOPHILS % 0.5 % (0.0-1.0); EOSINOPHILS # (AUTO) 0.1 (0.0-0.4); EOSINOPHILS % 0.7 % (0.0-6.0); HEMATOCRIT 31.4 % (38.2-49.6); HEMOGLOBIN 9.3 g/dL (14.0-18.0); LYMPHOCYTES # (AUTO) 0.6 (1.0-3.2); LYMPHOCYTES % 6.5 % (18.0-39.1); MEAN CORPUSCULAR HEMOGLOBIN 25.8 pg (28-32); MEAN CORPUSCULAR HGB CONC 29.6 g/dL (31-35); MONOCYTES % 10.7 % (4.4-11.3); NEUTROPHILS # (AUTO) 7.8 (2.1-6.9); NEUTROPHILS % 81.2 % (38.7-80.0); PLATELET COUNT 246 x10e3/uL (140-360); RED BLOOD COUNT 3.61 x10e6/uL (4.3-5.7); RED CELL DISTRIBUTION WIDTH 18.1 % (11.7-14.4)
[2019-01-30 10:28] LABS: BLOOD UREA NITROGEN 19 mg/dL (7-26); BUN/CREATININE RATIO 24 (6-25); CALCIUM 7.6 mg/dL (8.4-10.2); CARBON DIOXIDE 20 mmol/L (22-29); CHLORIDE 114 mmol/L (98-107); EST GLOMERULAR FILTRATION RATE > 60 ML/MIN (60-); GLUCOSE 132 mg/dL (74-118); SODIUM 144 mmol/L (136-145)
[2019-01-30] MEDS ORDERED: MIDAZOLAM HCL 25 MG in SODIUM CHLORIDE 0.9% 50ML 45 ML IV PRN (10:30)
--- NOTE | 2019-01-30 10:45 | NUR ---
patient called out. previously intubated, now ett tube is coiled in his mouth. restraints are applied to bilateral wrists. patient placed on nonrebreather, sats improve from 80s to 100. Patient is more alert than before transferring from [facility], states he had to get that tube out, does not want it there, knows he is in [place] and his name and . dr. gonsalez notified, orders to d/c the sedation.
[2019-01-30] MEDS: DEXTROSE 5%/0.9% SOD CHL 1,000 ML IV SCH (11:40)
[2019-01-30] MEDS: ENOXAPARIN SOD INJ 60 MG/0.6 ML SYR SC SCH ×2 (11:40→20:53)
[2019-01-30] MEDS: METHYLPREDNISOLONE SOD SUCC 40 MG/ML VIAL 1ML IV SCH ×2 (11:40→20:52)
[2019-01-30] MEDS: VANCOMYCIN 500MG/NS 0.9% 100ML 100 ML IV SCH ×2 (12:00→23:42)
[2019-01-30 13:12] LABS: ABG HCO3 22 mmol/L (23-28); ABG PCO2 35 mmHg (41-51); ABG PO2 109 mmHg (80-105)
[2019-01-30 13:14] LABS: ABG HCO3 22 mmol/L (23-28); ABG PCO2 38 mmHg (41-51); ABG PH 7.36 (7.31-7.41); ABG PO2 69 mmHg (80-105)
--- NOTE | 2019-01-30 14:55 | NUR ---
Pt transferred to ICU due to change in medical status. Pt on hold until new PT orders are submitted to continue PT services. Addendum: 01/30/19 at 1455 by Ibeth Scanlon PT Amended: Links added.
--- NOTE | 2019-01-30 15:58 | NUR ---
paged dr. gonsalez regarding patient being anxious, talking a lot on bipap, tachypnea. he does not want to give any sedating meds right now besides the home xanax that the patient takes out of concern for oversedation and risk of reintubation. wants code status clarified. discussion with daughter at bedside, she is going to speak to other family members and let us know.
--- NOTE | 2019-01-30 16:16 | Consultation ---
DATE OF CONSULTATION: 01/30/2019 Pulmonary Consultation Patient of Dr. Rowell and Dr. Ruperto Rocha. HISTORY OF PRESENT ILLNESS: Unfortunate 88-year-old gentleman admitted on the with pneumonia and shortness of breath, called this morning because of progressive dyspnea and confusion. The patient was on BiPAP with respiratory rate bearing up to 41, anxious, moderate CO2 retention. This was discussed with the ER doctor, who is also examining the patient. Decision was made that he would soon tire and would not wear the BiPAP, and it would be prudent to intubate him. He has history of chronic kidney disease, hypertension, COPD, hypothyroidism with tachycardia with a rate of 130. EKG is pending, anemic with a hemoglobin of 9.7. Renal functions essentially normal. ALLERGIES: HE IS ALLERGIC TO LEVAQUIN AND PHENERGAN. HOME MEDICATIONS: Included aspirin, iron, Zocor, potassium, Xanax, amiodarone, Pletal, finasteride, Levoxyl, metoprolol, Flomax, Restoril, and tramadol. OBJECTIVE: VITAL SIGNS: Temperature 97.9, respirations vary between 32 and 40, pulse was 130 and irregular, and blood pressure 142/70. HEAD: Normocephalic and atraumatic. LUNGS: Bilateral rhonchi. HEART: Irregular rhythm. ABDOMEN: Nontender. EXTREMITIES: Nonedematous. The patient appears to be in atrial fibrillation, congestive heart failure, and progressive pneumonia with staph cover, moderate-dose steroids. The patient is being intubated by Dr. Hodges and we have agreed that this was a prudent action, attempt to control heart rate with metoprolol and begin anticoagulation. Thank you for this kind referral. He is to be transferred to the ICU. MD STEFANIA García/ANGELES /[id number]
[2019-01-30] MEDS ORDERED: LOSARTAN POTASSIUM 25 MG TAB PO PRN (17:15)
[2019-01-30] MEDS: IRON SUCROSE 100 MG in SODIUM CHLORIDE 0.9% 100 ML 100 ML IV SCH (17:17)
--- NOTE | 2019-01-30 19:00 | NUR ---
Bedside report received from Paola CASAS. Care plan reviewed. No signs of distress noted at this time.
--- NOTE | 2019-01-30 19:42 | Diagnostic Imaging Report ---
EXAMINATION: CHEST XRAY LINE PLACEMENT INDICATION: PICC line placement COMPARISON: 01/30/2019.. FINDINGS: TUBES and LINES: Interval placement of a left upper extremity PICC with distal tip in adequate position at the level superior vena cava. LUNGS: Patchy density in the right lower lobe has increased since the prior examination performed earlier on the same day, concerning for pneumonia. Otherwise no change in the lungs. PLEURA: Bilateral small pleural effusions. No pneumothorax. HEART AND MEDIASTINUM: The cardiomediastinal silhouette is unremarkable. BONES AND SOFT TISSUES: No acute osseous lesion. Soft tissues are unremarkable. UPPER ABDOMEN: No free air under the diaphragm. IMPRESSION: 1. Interval placement of a left upper extremity PICC with distal tip in adequate position at the level superior vena cava. 2. Right lower lobe opacity suggestive of consolidation associated with pleural effusion. Signed by: Dr. Shawn Mann M.D. on 01/30/2019 7:38 PM
[2019-01-30] MEDS: TAMSULOSIN HCL 0.4 MG CAP PO SCH (20:52)
[2019-01-30] MEDS: TEMAZEPAM 15 MG CAP PO SCH (20:52)
[2019-01-30] MEDS: FINASTERIDE 5 MG TAB PO SCH (20:52)
[2019-01-30] MEDS: AZITHROMYCIN 500MG/NS 250 ML 250 ML IV SCH (21:27)
[2019-01-30] MEDS: CEFTRIAXONE SOD 1 GM/NS 50 ML 50 ML IV SCH (22:01)
--- NOTE | 2019-01-30 23:00 | NUR ---
Per PICC line RN - Radiology report will give okay to use PICC line and placement verification.
[2019-01-31] VITALS (24 sets, daily range): BP systolic 98–168; BP diastolic 54–104
[2019-01-31] MEDS: SODIUM CHLORIDE 0.9% 1000ML 1,000 ML IV SCH (00:25)
[2019-01-31] MEDS: DEXTROSE 5%/0.9% SOD CHL 1,000 ML IV SCH (00:57)
[2019-01-31 04:42] LABS: BASOPHILS % 0.1 % (0.0-1.0); HEMATOCRIT 29.9 % (38.2-49.6); HEMOGLOBIN 8.9 g/dL (14.0-18.0); LYMPHOCYTES # (AUTO) 0.3 (1.0-3.2); MEAN CORPUSCULAR HEMOGLOBIN 25.5 pg (28-32); MEAN CORPUSCULAR HGB CONC 29.8 g/dL (31-35); MEAN CORPUSCULAR VOLUME 85.7 fL (81-99); MONOCYTES # (AUTO) 0.3 (0.2-0.8); NEUTROPHILS # (AUTO) 6.9 (2.1-6.9); NEUTROPHILS % 91.4 % (38.7-80.0); PLATELET COUNT 253 x10e3/uL (140-360); RED BLOOD COUNT 3.49 x10e6/uL (4.3-5.7); RED CELL DISTRIBUTION WIDTH 17.8 % (11.7-14.4)
[2019-01-31 04:55] LABS: INR 1.09; PROTHROMBIN TIME 14.6 seconds (11.9-14.5)
[2019-01-31 04:59] LABS: ANION GAP 10.9 mmol/L (8-16); BLOOD UREA NITROGEN 18 mg/dL (7-26); BUN/CREATININE RATIO 24 (6-25); CALCIUM 7.8 mg/dL (8.4-10.2); CARBON DIOXIDE 24 mmol/L (22-29); CHLORIDE 116 mmol/L (98-107); CREATININE, SERUM 0.75 mg/dL (0.72-1.25); EST GLOMERULAR FILTRATION RATE > 60 ML/MIN (60-); GLUCOSE 148 mg/dL (74-118); POTASSIUM 3.9 mmol/L (3.5-5.1); SODIUM 147 mmol/L (136-145)
[2019-01-31] MEDS: IPRATROPIUM BROMIDE 0.02% 2.5 ML NEB NEB SCH ×3 (06:30→20:05)
[2019-01-31] MEDS: ALBUTEROL SULF 0.083% NEB SOLN 3 ML NEB NEB SCH ×4 (06:30→20:05)
--- NOTE | 2019-01-31 06:47 | Diagnostic Imaging Report ---
EXAMINATION: CHEST SINGLE (PORTABLE) INDICATION: Acute pneumonia. Intubated. COMPARISON: 01/30/2019.. FINDINGS: TUBES and LINES: Redemonstration of left upper extremity PICC with distal tip in adequate position at the level superior vena cava. LUNGS: Slight decrease in patchy density in the right lower lobe. Otherwise no significant change in appearance of the lungs. Otherwise no change in the lungs. PLEURA: Bilateral small pleural effusions right greater than left. No pneumothorax. HEART AND MEDIASTINUM: The cardiomediastinal silhouette is unremarkable. BONES AND SOFT TISSUES: No acute osseous lesion. Soft tissues are unremarkable. UPPER ABDOMEN: No free air under the diaphragm. IMPRESSION: 1. Slight decrease in patchy density in the right lower lobe. Otherwise no significant interval change. Signed by: Dr. Shawn Mann M.D. on 01/31/2019 6:44 AM
--- NOTE | 2019-01-31 06:51 | NUR ---
notified of consult at this time.
--- NOTE | 2019-01-31 07:00 | NUR ---
Bedside report given to Vernell CASAS. Care plan reviewed, no family present. Pt awake, following commands, no signs of distress noted.
[2019-01-31] MEDS: CILOSTAZOL 100 MG TAB PO SCH ×2 (09:22→16:24)
[2019-01-31] MEDS: AMIODARONE HCL 200 MG TAB PO SCH (09:22)
[2019-01-31] MEDS: ASPIRIN 325 MG TAB PO SCH (09:22)
[2019-01-31] MEDS: METHYLPREDNISOLONE SOD SUCC 40 MG/ML VIAL 1ML IV SCH ×2 (09:22→22:08)
[2019-01-31] MEDS: CLOPIDOGREL BISULFATE 75 MG TAB PO SCH (09:22)
[2019-01-31] MEDS: LEVOTHYROXINE SODIUM 88 MCG TAB PO SCH (09:22)
[2019-01-31] MEDS: METOPROLOL SUCCINATE 50 MG TAB XL PO SCH ×2 (09:23→16:26)
[2019-01-31] MEDS: ENOXAPARIN SOD INJ 60 MG/0.6 ML SYR SC SCH (09:24)
[2019-01-31] MEDS: ALPRAZOLAM 0.25 MG TAB PO SCH ×2 (09:24→16:24)
[2019-01-31] MEDS: TRAMADOL HCL 50 MG TAB PO SCH ×3 (09:24→22:08)
--- NOTE | 2019-01-31 10:25 | Progress Note ---
DATE: 01/31/2019 SUBJECTIVE: Rapid response was called yesterday, went to respiratory distress. The patient is intubated and self-extubated himself. The patient is currently tolerating BiPAP, doing better, appears to be in atrial fibrillation with rapid ventricular response. The patient is currently alert and oriented x1, and difficult to get a review of systems from him, complaints of no chest pain and no shortness of breath at this time. MEDICATIONS: He is on at this time are, vancomycin, the patient is on Rocephin and azithromycin for atypical coverage. Lovenox 60 mg q.12 hours. The patient is also on metoprolol 50 mg twice a day and started on amiodarone 200 mg daily. The patient is also on losartan 25 mg b.i.d. OBJECTIVE: VITAL SIGNS: Temperature is afebrile, pulse of 93, blood pressure is 157/73, pulse oximetry 98%. HEENT: Normocephalic, atraumatic. Pupils are reactive to light and accommodation. CVS: S1, S2. Tachycardic. LUNGS: Decreased air entry in the lung bases and also rhonchi on the right side. ABDOMEN: Nontender, nondistended. EXTREMITIES: No clubbing, no cyanosis, no edema. ASSESSMENT AND PLAN: 1. Acute mental status changes. 2. Acute hypoxia and respiratory failure. 3. Pneumonia. The patient will be kept in ICU. We will continue with albuterol and Atrovent treatment. The patient will be on BiPAP and continue with his CV medications at this time. The patient will need initiation of warfarin bridge from Lovenox. Cardiology consult will be done and also an echocardiogram will be ordered. 4. Further recommendation and clinical course, we will continue monitoring the patient. Probably, we will need a cardiac workup as an outpatient. Ruperto Rocha MD ASJ/MODL /[id number]
[2019-01-31] MEDS: VANCOMYCIN 500MG/NS 0.9% 100ML 100 ML IV SCH ×2 (13:18→23:24)
[2019-01-31] MEDS ORDERED: SODIUM CHLORIDE 0.9% 250ML 250 ML ONE (13:33)
--- NOTE | 2019-01-31 15:00 | Consultation ---
DATE OF CONSULTATION: 01/31/2019 Cardiology Consultation REASON FOR CONSULTATION: Atrial fibrillation. HISTORY OF PRESENT ILLNESS: Mr. Molly Lamb is an 88-year-old male, who states that he has been in good health, however, ended up in the ER with pain in his left upper quadrant and is quite unclear why he came into the ER, however, he states that now he feels better and we were consulted due to new onset of AFib with RVR upon new diagnosis of pneumonia. At this present, he denies any chest pain, shortness of breath, palpitation, cough, dizziness, syncope, fever, or chills. PAST MEDICAL HISTORY: Hypertension and hyperlipidemia. PAST SURGICAL HISTORY: The patient is unclear. FAMILY HISTORY: Noncontributory to current course of illness. PHYSICAL EXAMINATION: VITAL SIGNS: Temperature 97.6, pulse 98, respiratory rate 25, blood pressure 130/91, oxygen saturation 100% on 10 L nasal cannula. GENERAL: Alert and oriented x2, resting comfortably in bed, does not appear to be in any acute distress. NECK: Supple. No JVD noted. LUNGS: Diminished breath sounds throughout. No wheezing. No rhonchi or crackles. CARDIOVASCULAR: Regular rate and rhythm. Normal S1, S2. ABDOMEN: Soft, nontender. LOWER EXTREMITIES: No edema. 2+ pedal pulses. CARDIOVASCULAR MEDICATIONS: Lovenox 60 mg subcu q.12 hours, metoprolol 50 mg p.o. b.i.d., aspirin 81 mg p.o. daily, Plavix 75 p.o. daily, amiodarone 200 mg p.o. daily, atorvastatin 25 mg p.o. daily. LABORATORY DATA: WBC 7.53, hemoglobin 8.9, hematocrit 29.9, platelets 253. Sodium 147, potassium 3.9, BUN 18, creatinine 0.75, calcium 7.8. PT 14.6, INR 1.09. Chest x-ray with slight decrease in the patchy density of the right lower lobe, otherwise no significant interval change. TELEMETRY: Sinus rhythm at this time. IMPRESSION: 1. Acute hypoxemic respiratory failure that required intubation; however, the patient self-extubated this morning, now on nasal cannula. 2. Altered mental status, improved this morning. 3. Pneumonia. 4. New-onset atrial fibrillation, in sinus rhythm at this time. 5. Anemia. 6. Hypertension. 7. Hyperlipidemia. RECOMMENDATION: 1. Initiate anticoagulation. Medications adjusted. Discontinue Lovenox. Initiate Eliquis orally. Continue the rest of the above-mentioned cardiac medications. 2. Echocardiogram has been obtained this morning, awaiting review, recommendation will follow. Maintain the patient on telemetry at all time. Continue antimicrobial therapy and pulmonary care per table lever operator. Monitor respiratory status and also mental status. Per the patient, he feels good this morning. Thank you for this consultation Dr. Rowell. Dictated by Aaliyah Faria NP Grayson Garcia MD JWV/MARISOLL /[id number]
[2019-01-31] MEDS: APIXABAN 5 MG TABLET PO SCH (16:06)
[2019-01-31] MEDS: IRON SUCROSE 100 MG in SODIUM CHLORIDE 0.9% 100 ML 100 ML IV SCH (16:24)
--- NOTE | 2019-01-31 19:00 | NUR ---
Bedside report received from Vernell CASAS. Care plan reviewed, no family present. No signs of distress noted, pt reports no pain or discomfort at this time. Pt on 10L HF NC spo2 92-98%.
[2019-01-31] MEDS: TEMAZEPAM 15 MG CAP PO SCH (22:08)
[2019-01-31] MEDS: TAMSULOSIN HCL 0.4 MG CAP PO SCH (22:08)
[2019-01-31] MEDS: CEFTRIAXONE SOD 1 GM/NS 50 ML 50 ML IV SCH (22:08)
[2019-01-31] MEDS: FINASTERIDE 5 MG TAB PO SCH (22:08)
[2019-01-31] MEDS: AZITHROMYCIN 500MG/NS 250 ML 250 ML IV SCH (22:08)
[2019-02-01] VITALS (10 sets, daily range): BP systolic 116–163; BP diastolic 72–104
[2019-02-01] MEDS: ALBUTEROL SULF 0.083% NEB SOLN 3 ML NEB NEB SCH ×7 (00:11→19:41)
[2019-02-01] MEDS: IPRATROPIUM BROMIDE 0.02% 2.5 ML NEB NEB SCH ×4 (04:10→19:41)
[2019-02-01 04:55] LABS: BASOPHILS % 0.1 % (0.0-1.0); HEMATOCRIT 30.9 % (38.2-49.6); HEMOGLOBIN 9.1 g/dL (14.0-18.0); LYMPHOCYTES # (AUTO) 0.3 (1.0-3.2); LYMPHOCYTES % 2.9 % (18.0-39.1); MEAN CORPUSCULAR HEMOGLOBIN 25.3 pg (28-32); MEAN CORPUSCULAR HGB CONC 29.4 g/dL (31-35); MEAN CORPUSCULAR VOLUME 86.1 fL (81-99); MONOCYTES # (AUTO) 0.2 (0.2-0.8); MONOCYTES % 1.5 % (4.4-11.3); NEUTROPHILS # (AUTO) 10.6 (2.1-6.9); NEUTROPHILS % 95.1 % (38.7-80.0); PLATELET COUNT 293 x10e3/uL (140-360); RED BLOOD COUNT 3.59 x10e6/uL (4.3-5.7); RED CELL DISTRIBUTION WIDTH 18.1 % (11.7-14.4)
[2019-02-01 05:10] LABS: ANION GAP 10.7 mmol/L (8-16); BLOOD UREA NITROGEN 19 mg/dL (7-26); BUN/CREATININE RATIO 25 (6-25); CARBON DIOXIDE 26 mmol/L (22-29); CHLORIDE 116 mmol/L (98-107); CREATININE, SERUM 0.75 mg/dL (0.72-1.25); EST GLOMERULAR FILTRATION RATE > 60 ML/MIN (60-); GLUCOSE 144 mg/dL (74-118); POTASSIUM 3.7 mmol/L (3.5-5.1); SODIUM 149 mmol/L (136-145)
[2019-02-01] MEDS: LEVOTHYROXINE SODIUM 88 MCG TAB PO SCH (07:54)
[2019-02-01] MEDS: ALPRAZOLAM 0.25 MG TAB PO SCH ×2 (08:22→17:02)
[2019-02-01] MEDS: METOPROLOL SUCCINATE 50 MG TAB XL PO SCH ×2 (08:22→17:02)
[2019-02-01] MEDS: METHYLPREDNISOLONE SOD SUCC 40 MG/ML VIAL 1ML IV SCH ×2 (08:22→21:38)
[2019-02-01] MEDS: AMIODARONE HCL 200 MG TAB PO SCH (08:22)
[2019-02-01] MEDS: ASPIRIN 325 MG TAB PO SCH (08:22)
[2019-02-01] MEDS: APIXABAN 5 MG TABLET PO SCH ×2 (08:22→17:02)
[2019-02-01] MEDS: TRAMADOL HCL 50 MG TAB PO SCH ×3 (08:22→21:38)
[2019-02-01] MEDS: CILOSTAZOL 100 MG TAB PO SCH ×2 (08:22→17:02)
--- NOTE | 2019-02-01 10:49 | NUR ---
patient transferred to [facility]. report called. all personal belongings gathered and moved. vitals stable with no signs of distress.
[2019-02-01] MEDS: VANCOMYCIN 500MG/NS 0.9% 100ML 100 ML IV SCH (12:34)
--- NOTE | 2019-02-01 14:26 | Progress Note ---
DATE: 02/01/2019 Cardiology Progress Note SUBJECTIVE: The patient denies chest pain or shortness of breath. OBJECTIVE: VITAL SIGNS: Temperature 97.3 degrees, pulse 125, respiratory rate 25, blood pressure 130/102, and oxygen saturation 95% on high-flow nasal cannula. GENERAL: Elderly man, in no acute distress. Awake and alert. LUNGS: Clear to auscultation bilaterally. No wheezes or crackles. CARDIOVASCULAR: Irregularly irregular, tachycardic. Normal S1, S2. ABDOMEN: Soft, nontender. EXTREMITIES: No edema. CARDIAC MEDICATIONS: Apixaban 5 mg p.o. b.i.d., aspirin 81 mg p.o. daily, amiodarone 200 mg p.o. daily, Cilostazol 100 mg p.o. b.i.d., metoprolol succinate 50 mg p.o. b.i.d., levothyroxine 88 mcg p.o. daily. LABORATORY DATA: WBC 11.16, hemoglobin 9.1, hematocrit 30.9, platelets 293. Sodium 149, potassium 3.7, chloride 116, CO2 is 26, BUN 19, and creatinine 0.75. TSH 0.106, T4 is 11.81, T3 is 37.88. TELEMETRY: Atrial fibrillation. IMPRESSION: 1. Acute hypoxic respiratory failure, now extubated. 2. Atrial fibrillation with rapid ventricular response. 3. Hyperthyroidism. 4. Pneumonia. 5. Altered mental status, improved. 6. Hypertension. 7. Hyperlipidemia. 8. Anemia. RECOMMENDATIONS: Increase metoprolol. Monitor the patient closely on telemetry. Continue current cardiac medications otherwise. The patient is on Eliquis for CVA prophylaxis. We will monitor for signs and symptoms of bleeding. Antibiotics per primary. We will defer management of hyperthyroidism to primary as well. Thank you for this consult. We will continue to follow. Malena Crawford MD ABS/MODL /[id number] MTDD
[2019-02-01] MEDS: IRON SUCROSE 100 MG in SODIUM CHLORIDE 0.9% 100 ML 100 ML IV SCH (15:52)
[2019-02-01] MEDS: CEFTRIAXONE SOD 1 GM/NS 50 ML 50 ML IV SCH (19:30)
[2019-02-01] MEDS ORDERED: SODIUM CHLORIDE 0.9% 250ML 250 ML ONE (19:33)
[2019-02-01] MEDS: FINASTERIDE 5 MG TAB PO SCH (21:38)
[2019-02-01] MEDS: TEMAZEPAM 15 MG CAP PO SCH (21:38)
[2019-02-01] MEDS: TAMSULOSIN HCL 0.4 MG CAP PO SCH (21:38)
[2019-02-01] MEDS: AZITHROMYCIN 500MG/NS 250 ML 250 ML IV SCH (22:08)
[2019-02-02] VITALS (9 sets, daily range): BP systolic 128–156; BP diastolic 64–72
[2019-02-02] MEDS: VANCOMYCIN 500MG/NS 0.9% 100ML 100 ML IV SCH (00:04)
[2019-02-02] MEDS: IPRATROPIUM BROMIDE 0.02% 2.5 ML NEB NEB SCH ×4 (00:11→19:45)
[2019-02-02] MEDS: ALBUTEROL SULF 0.083% NEB SOLN 3 ML NEB NEB SCH ×4 (03:02→19:45)
--- NOTE | 2019-02-02 04:32 | NUR ---
Patient connected to BIPAP at this time. Will continue to monitor.
--- NOTE | 2019-02-02 07:15 | NUR ---
Report given to AM nurse,walking round done.
[2019-02-02] MEDS: ALPRAZOLAM 0.25 MG TAB PO SCH ×2 (09:01→15:45)
[2019-02-02] MEDS: METHYLPREDNISOLONE SOD SUCC 40 MG/ML VIAL 1ML IV SCH ×2 (09:01→21:42)
[2019-02-02] MEDS: ASPIRIN 325 MG TAB PO SCH (09:02)
[2019-02-02] MEDS: TRAMADOL HCL 50 MG TAB PO SCH ×3 (09:02→21:43)
[2019-02-02] MEDS: APIXABAN 5 MG TABLET PO SCH (09:02)
[2019-02-02] MEDS: CILOSTAZOL 100 MG TAB PO SCH ×2 (09:03→19:12)
[2019-02-02] MEDS: AMIODARONE HCL 200 MG TAB PO SCH (09:03)
[2019-02-02] MEDS: METOPROLOL SUCCINATE 50 MG TAB XL PO SCH ×2 (09:04→19:13)
[2019-02-02] MEDS: LEVOTHYROXINE SODIUM 88 MCG TAB PO SCH (09:09)
[2019-02-02] MEDS ORDERED: MEROPENEM 500MG 500 MG in SODIUM CHLORIDE 0.9% 50ML 50 ML IV SCH ×2 (10:00→10:15)
--- NOTE | 2019-02-02 10:24 | Diagnostic Imaging Report ---
Examination: Single AP view of the chest. COMPARISON: 01/31/2019 INDICATION: Shortness of breath DISCUSSION: Left upper extremity PICC is unchanged in position. Patchy opacity in the right lung base is unchanged. Small bilateral pleural effusions right greater than left. Left lung is otherwise clear. Stable cardiomediastinal contour. No acute osseous abnormalities. IMPRESSION: Stable chest relative to 01/31/2019. Persistent patchy opacity in the right lung base with small bilateral pleural effusions. Signed by: Dr. Zia Guerra M.D. on 02/02/2019 10:21 AM
--- NOTE | 2019-02-02 15:40 | NUR ---
CALLED DR. GONZALEZ TO MADE HIM AWARE PATIENT COUGHING UP BLOOD X3 EPISODES, THIS MORNING, INFORMED HIM RESPIRATORY MD. MADE AWARE THIS MORNING, PATIENT, IS ELIQUIS BID. PATIENT ALSO ANXIOUS BECAUSE OF BLOOD IN SPUTUM. RECEIVED ORDERS TO HOLD ELIQUIS FO R3 DAYS, AND TO GIVE HIM 1700 DOSE XANAX 0.25MG NOW.
--- NOTE | 2019-02-02 16:47 | NUR ---
Nutrition Intervention Note RD Recommendation(s) for Physician: - Continue GI soft diet with nectar thick liquids per COMPLIANCE AUDITOR - Recommend Ensure Pudding TID Plan of Care: RD following, monitoring for tolerance and adequacy Nutrition reason for involvement: LOS RD Assessment 02/02: 88 YOM admitted for PNA with AMS and general weakness, pt seen today for LOS. Pt discussed during am rounds, continues with fluctuating mentation- oriented today. 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 Pt states UBW of 150# within the past few months, no significant change noted. Pt denies any GI distress. No family present at time of visit. Discussed supplements, pt receptive to Ensure pudding- recommend TID with meals. COMPLIANCE AUDITOR following, recommended nectar thick liquids. Encouraged po intake, pt verbalized understanding. Will monitor and continue to follow. Principal Problems/Diagnoses: AMS, PNA with hypoxia, generalized weakness PMH: CVA, pancreatitis, HTN GI: LBM 02/02 Skin: WDL Labs: 02/01: Na 149, K 3.7, Gluc 144 Meds: abx, solu-medrol, synthroid Ht: 60.7 in Wt: 146.38 lb BMI: 27.9 IBW: 110 lb Malnutrition Evaluation (02/02/19) The patient does not meet criteria for a specified degree of malnutrition at this time. Will re-evaluate at follow-up as appropriate. Nutrition Prescription (Diet Order): GI Soft, [place] Thick Liquids Estimated Nutritional Needs: 6111-8796 calories/day (18-22 kcal/kg CBW) 66-100 g protein/day (1-1.5 g pro/kg CBW) Diet Adequacy: Not meeting calorie needs, Not meeting protein needs Diet Education Needs Assessment: Diet education not indicated, patient on temporary/transition diet. Nutrition Care Level: Mod Nutrition Diagnosis: Inadequate energy and protein intake related with AMS and current medical status as evidenced by poor intake currently and not meeting needs. Goal: Patient will meet 75-100% of estimated needs by follow up Progress: N/A Interventions: Texture, fluid, and fiber modified diet, Commercial food Monitoring/Evaluation: Total energy intake, Total protein intake, Modified diet, Supplement Signed: Rehana Velásquez RD, LD, [facility]
[2019-02-02] MEDS: MEROPENEM 500MG/ NS 50ML 50 ML IV SCH (18:50)
--- NOTE | 2019-02-02 19:00 | NUR ---
Received patient from day nurse, patient is alert and oriented, patient is currently on oxygen support.
--- NOTE | 2019-02-02 20:14 | Progress Note ---
DATE: 02/02/2019 Cardiology Progress Note SUBJECTIVE: The patient denies chest pain or shortness of breath. OBJECTIVE: VITAL SIGNS: Temperature 98.7 degrees, pulse 90, respiratory rate 24, blood pressure 139/72, and oxygen saturation 94% on 5 L nasal cannula. GENERAL: Elderly man, in no acute distress. Awake and alert. LUNGS: Clear to auscultation bilaterally. No wheezes or crackles. CARDIOVASCULAR: Normal rate. Regular rhythm. Normal S1, S2. ABDOMEN: Soft, nontender. EXTREMITIES: No edema. CARDIAC MEDICATIONS: Levothyroxine 88 mcg p.o. daily, metoprolol succinate 100 mg p.o. b.i.d., amiodarone 200 mg p.o. daily, and aspirin 81 mg p.o. daily. LABORATORY STUDIES: None today. Sputum culture growing Pseudomonas aeruginosa. IMAGING STUDIES: Chest x-ray, stable chest relative to 01/31/2019 with persistent patchy opacity in the right lung base with small bilateral pleural effusions. TELEMETRY: Normal sinus rhythm. IMPRESSION: 1. Acute hypoxic respiratory failure, now extubated. 2. Atrial fibrillation with rapid ventricular response. 3. Hypothyroidism. 4. Pneumonia. 5. Altered mental status. 6. Hypertension. 7. Hyperlipidemia. 8. Anemia. RECOMMENDATIONS: Continue current cardiac medications. Monitor the patient closely on telemetry. The patient is on Eliquis for CVA prophylaxis. We will continue to monitor for signs and symptoms of bleeding. Antibiotics per primary. The patient is reported to have been coughing up blood today, await Pulmonary input. Thank you for this consult. We will continue to follow. Malena Crawford MD ABS/MODL /[id number]
[2019-02-02] MEDS: TEMAZEPAM 15 MG CAP PO SCH (21:43)
[2019-02-02] MEDS: FINASTERIDE 5 MG TAB PO SCH (21:43)
[2019-02-02] MEDS: TAMSULOSIN HCL 0.4 MG CAP PO SCH (21:43)
--- NOTE | 2019-02-02 22:38 | Diagnostic Imaging Report ---
EXAM: Modified barium swallow INDICATION: Dysphagia COMPARISON: None FINDINGS: This examination was conducted in conjunction with speech pathologist. Patient was given, by mouth, liquids and solids of various consistencies. Examination showed premature spillage over the base of the tongue and vallecula with all trials. Laryngeal penetration was noted with liquids. Immediate aspiration was seen within liquids via teaspoon, no cough. Mild vallecular, pharyngeal wall and base of tongue residue was noted. Fluoro time: 1:38 minutes IMPRESSION: <Mild to moderate oropharyngeal dysphagia, with immediate aspiration of thin liquids. Please see speech pathology report for detailed description and recommendations.> Signed by: Dr. Salbador Fernandez M.D. on 02/02/2019 10:35 PM
[2019-02-03] VITALS (15 sets, daily range): BP systolic 91–172; BP diastolic 52–104
[2019-02-03] MEDS ORDERED: MEROPENEM 500MG/ NS 50ML 500 MG in MEROPENEM 500MG/ NS 50ML 50 ML IV SCH
--- NOTE | 2019-02-03 00:04 | Consultation ---
DATE OF CONSULTATION: 02/02/2019 Consultation Note REASON FOR CONSULTATION: This patient has pneumonia with Pseudomonas, multidrug resistant. HISTORY OF PRESENT ILLNESS: This is a patient, who comes in on January 27 with shortness of breath and cough. The patient apparently has been sick for a few days before he came to the emergency room, where he was admitted. The patient has been seen by Cardiology and has been seen by Pulmonary. I was asked to see him today to make a recommendation because it is growing multidrug resistant. The patient when he first came to the emergency room, he was tachypneic, hypoxemic, and tachycardic. He was originally admitted to the floor and then transferred to the [facility]. The patient has been seen by Dr. Lanier. The patient is telling me that his breathing is about the same. He is on BiPAP right now. He is telling me that he is better, but still short of breath. This patient, who has a history of hypertension and hyperlipidemia, denies any medical problems, comes in with shortness of breath, was found to be in atrial fibrillation. He was also found to be in acute respiratory failure, originally intubated, but self extubated. He is currently on BiPAP, seems to be comfortable. At the present time, he has no complaints, except the shortness of breath. It was also noted he had some hemoptysis. Sputum cultures showing Pseudomonas aeruginosa and that was thought at the consultation. The patient, however, it sounds since he came here, he continued to have shortness of breath and cough with his hemoptysis. No fever. No chills. No other complaints. PAST MEDICAL HISTORY: Hypertension and hyperlipidemia. PAST SURGICAL HISTORY: He denies. ALLERGIES: LEVOFLOXACIN. SOCIAL HISTORY: He denies smoking, drug abuse, or alcohol abuse. FAMILY HISTORY: Hypertension. REVIEW OF SYSTEMS: At the present time: HEENT: There is no headache, visual changes, or hearing changes. GI: There is no nausea, no vomiting, and no diarrhea. CARDIAC: He thinks his heart is beating funny, but there is no chest pain. JOINTS: There is no acute complaint. There is no acute redness and swelling. SKIN: There is no rash. Overall, all of the symptoms are within normal limits, except for the shortness of breath and hemoptysis at the present time. LABORATORY DATA: Reviewed. Blood cultures are negative. His sputum culture showing Pseudomonas aeruginosa and the smear showed less than 25 squamous cells , few wbc's, no organism, but rare Pseudomonas did grow, which is sensitive to meropenem. His chest x-ray, which was done on the , showed persistent patchy opacity of the right lung with small pleural effusions. MEDICATIONS: His medication list reviewed. He is currently on Xanax, Ultram, Atrovent inhaler, Proventil inhaler, Synthroid, Toprol, Cordarone, and Solu-Medrol 20 q.12 hours. PHYSICAL EXAMINATION: GENERAL: He is currently alert, does not seem to be in acute distress, except the shortness of breath. VITAL SIGNS: Stable. Temperature 97.7. I have reviewed his temperature since admission. No fever. HEENT: Normocephalic. Not icteric. Eyes within normal limits. Extraocular movements within normal limits. Oropharyngeal mucosa within normal limits. NECK: Supple. No JVD. No lymphadenopathy. No thyromegaly. CHEST: Few crackles and rhonchi in the bases, mainly on the right. HEART: S1 and S2. Irregularly regular. No S4 or murmur. ABDOMEN: Soft. Bowel sounds present. No tenderness. EXTREMITIES: No edema. SKIN: There is no rash. IMPRESSION: 1. Community-acquired pneumonia with Pseudomonas aeruginosa, probably playing a factor in it. I would recommend to put the patient on meropenem 500 IV q.6 hours, especially since the patient is telling me his breathing is about the same. Discontinue other antibiotics. 2. Acute respiratory failure, now extubated, but still short of breath. 3. Atrial fibrillation with rapid ventricular response. Cardiology is following, concerned about congestive heart failure. 4. History of hypothyroidism, history of pneumonia, history of hypertension, history of hyperlipidemia, and anemia. Cardiology is following. There is concern about chronic obstructive pulmonary disease. He would need pneumonia vaccine and flu vaccine yearly. We will follow with you. We will see closely, see how he is going to do with response to the antibiotic. MD KATIE Seals/ANGELES /[id number]
[2019-02-03] MEDS: MEROPENEM 500MG/ NS 50ML 50 ML IV SCH ×4 (00:10→16:44)
[2019-02-03] MEDS: IPRATROPIUM BROMIDE 0.02% 2.5 ML NEB NEB SCH ×4 (00:12→19:45)
[2019-02-03] MEDS: ALBUTEROL SULF 0.083% NEB SOLN 3 ML NEB NEB SCH ×6 (00:12→19:45)
--- NOTE | 2019-02-03 03:42 | NUR ---
patient in afib, cardiology called.
--- NOTE | 2019-02-03 03:45 | NUR ---
Patient went into afib, and was anxious. Dr. Garcia office was called and received order for metoprolol 5mg ivp, Dr. Rowell was also made aware and also received order for ativan.
[2019-02-03] MEDS ORDERED: LORAZEPAM INJ 2 MG/ML VIAL IV STA (04:10)
[2019-02-03] MEDS ORDERED: METOPROLOL TARTRATE INJ 1 MG/ML VIAL IV STA (04:16)
[2019-02-03] MEDS: GUAIFENESIN/DEXTROMETHORPHAN LIQD 5 ML UDC NG PRN (06:01)
[2019-02-03 06:55] LABS: BASOPHILS % 0.1 % (0.0-1.0); HEMATOCRIT 29.3 % (38.2-49.6); HEMOGLOBIN 8.8 g/dL (14.0-18.0); LYMPHOCYTES # (AUTO) 0.2 (1.0-3.2); LYMPHOCYTES % 1.7 % (18.0-39.1); MEAN CORPUSCULAR HEMOGLOBIN 25.7 pg (28-32); MEAN CORPUSCULAR VOLUME 85.7 fL (81-99); MONOCYTES # (AUTO) 0.3 (0.2-0.8); MONOCYTES % 2.5 % (4.4-11.3); NEUTROPHILS # (AUTO) 11.5 (2.1-6.9); NEUTROPHILS % 94.8 % (38.7-80.0); PLATELET COUNT 260 x10e3/uL (140-360); RED BLOOD COUNT 3.42 x10e6/uL (4.3-5.7)
--- NOTE | 2019-02-03 07:15 | NUR ---
Walking rounds done. Patient is awake and alert to name and only. He is currently on 15L high flow O2 saturating 98%. Patient reoriented to surroundings. Bed in lowest position, locked, bed alarm on and call frederick within reach. Will continue to monitor.
--- NOTE | 2019-02-03 07:24 | NUR ---
Patient endorsed to next shift for continuity of care.
[2019-02-03] MEDS: LEVOTHYROXINE SODIUM 88 MCG TAB PO SCH (07:40)
[2019-02-03 07:52] LABS: ALANINE AMINOTRANSFERASE 16 IU/L (0-55); ALBUMIN 2.3 g/dL (3.5-5.0); ALBUMIN/GLOBULIN RATIO 0.9 (0.8-2.0); ALKALINE PHOSPHATASE 87 IU/L (40-150); ANION GAP 7.7 mmol/L (8-16); BLOOD UREA NITROGEN 23 mg/dL (7-26); BUN/CREATININE RATIO 32 (6-25); CALCIUM 8.1 mg/dL (8.4-10.2); CARBON DIOXIDE 31 mmol/L (22-29); CHLORIDE 109 mmol/L (98-107); CREATININE, SERUM 0.73 mg/dL (0.72-1.25); EST GLOMERULAR FILTRATION RATE > 60 ML/MIN (60-); GLUCOSE 135 mg/dL (74-118); POTASSIUM 3.7 mmol/L (3.5-5.1); SODIUM 144 mmol/L (136-145)
[2019-02-03] MEDS: METHYLPREDNISOLONE SOD SUCC 40 MG/ML VIAL 1ML IV SCH ×2 (08:13→20:58)
[2019-02-03] MEDS: CILOSTAZOL 100 MG TAB PO SCH ×2 (08:13→16:44)
[2019-02-03] MEDS: ALPRAZOLAM 0.25 MG TAB PO SCH ×2 (08:13→16:44)
[2019-02-03] MEDS: METOPROLOL SUCCINATE 50 MG TAB XL PO SCH ×2 (08:13→16:44)
[2019-02-03] MEDS: TRAMADOL HCL 50 MG TAB PO SCH ×3 (08:13→20:58)
[2019-02-03] MEDS: BENZONATATE 100 MG CAP PO SCH ×3 (08:13→20:58)
--- NOTE | 2019-02-03 08:30 | NUR ---
Assisted with breakfast, and repositioning. Patient tolerated well
[2019-02-03] MEDS: AMIODARONE HCL 200 MG TAB PO SCH (09:16)
[2019-02-03] MEDS: ASPIRIN 81 MG ENTERIC COATED PO SCH (09:16)
--- NOTE | 2019-02-03 09:50 | NUR ---
Patient continues confused, pulling O2 sensor off and trying to go for a walk. O2 saturations noted to be 88-90 on 12L of high flow. RT called O2 increased to 15L NC high flow. O2 saturation increased to 93%. Paged placed for Dr. Costello.
--- NOTE | 2019-02-03 10:00 | NUR ---
Spoke to Dr. Costello, received orders to transfer to ICU, start Precedex and apply Bipap. ICU charge nurse, and warehouse worker notified. Awaiting bed assignment.
[2019-02-03] MEDS ORDERED: DEXMEDETOMIDINE HCL 200 MCG in SODIUM CHLORIDE 0.9% 50ML 48 ML IV PRN (10:15)
--- NOTE | 2019-02-03 10:20 | NUR ---
Patient's Mariajose called, no answer and message left to callback for update. Lesa, daughter, called and message left.
--- NOTE | 2019-02-03 10:50 | NUR ---
Patient's called back and updated on condition.
--- NOTE | 2019-02-03 12:45 | NUR ---
Continue to await bed in ICU. Patient turned and repositioned. O2 saturation drops with minimal excerption to 86% on 15L and will raise to 95%-98% at rest. Will continue to monitor.
--- NOTE | 2019-02-03 13:46 | NUR ---
EDUCATED ABOUT IMM, SIGNED, FILED IN CHART, WITH COPY LEFT WITH FAMILY AT BEDSIDE.
--- NOTE | 2019-02-03 13:58 | NUR ---
Patient transferred to ICU via bed. Bedside report given to staff nurse.
--- NOTE | 2019-02-03 15:43 | NUR ---
Pt transferred from IMCU to ICU for higher level of care. Will need new orders to resume PT. Thank you. Addendum: 02/03/19 at 1544 by NATIVIDAD SAHA PTA Amended: Links added.
--- NOTE | 2019-02-03 15:59 | Progress Note ---
DATE: 02/03/2019 Cardiology Progress Note SUBJECTIVE: The patient is confused. He was not able to provide any history. OBJECTIVE: VITAL SIGNS: Temperature 97 degrees, pulse 107, respiratory rate 24, blood pressure 140/70, and oxygen 92% on 15 L nasal cannula. GENERAL: Elderly man, in no acute distress, confused. LUNGS: Clear to auscultation bilaterally. No wheezes or crackles. CARDIOVASCULAR: Normal rate, regular rhythm. No murmur. Normal S1, S2. ABDOMEN: Soft, nontender. EXTREMITIES: No edema. CARDIAC MEDICATIONS: Aspirin 81 mg p.o. daily, amiodarone 200 mg p.o. daily, metoprolol succinate 100 mg p.o. b.i.d., levothyroxine 80 mcg p.o. daily. LABORATORY DATA: WBC 12.08, hemoglobin 8.8, hematocrit 29.3, platelets 260. Sodium 144, potassium 3.7, chloride 109, CO2 of 31, BUN 22, creatinine 0.73. Telemetry, normal sinus rhythm. IMPRESSION: 1. Acute hypoxic respiratory failure. 2. Atrial fibrillation with rapid ventricular response, currently sinus rhythm. 3. Altered mental status. 4. Pneumonia. 5. Hypothyroidism. 6. Hypertension. 7. Hyperlipidemia. 8. Anemia. RECOMMENDATIONS: Continue current cardiac medications. Monitor the patient closely on telemetry. Eliquis was held due to suspected hemoptysis yesterday. We will monitor closely for further episodes. Evaluation of altered mental status per primary. Antibiotics per Infectious Disease. Thank you for this consult. We will continue to follow. Malena Crawford MD ABS/MODL /[id number]
[2019-02-03] MEDS ORDERED: FUROSEMIDE INJ 10 MG/ML 2 ML VIAL IV ONE (17:15)
--- NOTE | 2019-02-03 18:53 | Diagnostic Imaging Report ---
A single frontal view of the chest. HISTORY: Shortness of breath, acute pneumonia, coughing up blood COMPARISON: Chest radiograph February 02, 2019 DISCUSSION: Portable technique, limits sensitivity of the exam. Soft tissue attenuation partially limits sensitivity of the exam. Numerous overlying artifacts. Tubes/Lines: Unchanged appearance of the left upper extremity PICC line. Lungs and pleura: Interval increased interstitial and airspace opacities, right greater than left. Mild right greater than left atelectasis. Probable small bilateral pleural effusions. Heart and mediastinum: The cardiomediastinal silhouette is predominantly obscured. Bones and soft tissues: Appear unchanged. IMPRESSION: Increasing bilateral interstitial and airspace opacities, right greater than left. This may reflect evolving pneumonia or pulmonary hemorrhage given the provided history. Signed by: Dr. Hakan Wall D.O., M.M.M. on 02/03/2019 6:49 PM
[2019-02-03] MEDS: FINASTERIDE 5 MG TAB PO SCH (20:58)
[2019-02-03] MEDS: TEMAZEPAM 15 MG CAP PO SCH (20:58)
[2019-02-03] MEDS: TAMSULOSIN HCL 0.4 MG CAP PO SCH (20:58)
[2019-02-04] VITALS (29 sets, daily range): BP systolic 70–150; BP diastolic 40–85
[2019-02-04] MEDS: MEROPENEM 500MG/ NS 50ML 50 ML IV SCH ×4 (00:36→17:00)
[2019-02-04] MEDS: ALBUTEROL SULF 0.083% NEB SOLN 3 ML NEB NEB SCH ×6 (03:00→19:30)
[2019-02-04] MEDS ORDERED: DEXMEDETOMIDINE 200MCG/NS 50ML 50 ML IV ONE ×2 (06:21→21:12)
[2019-02-04 06:41] LABS: BASOPHILS % 0.1 % (0.0-1.0); HEMATOCRIT 31.2 % (38.2-49.6); HEMOGLOBIN 9.2 g/dL (14.0-18.0); LYMPHOCYTES # (AUTO) 0.3 (1.0-3.2); LYMPHOCYTES % 2.3 % (18.0-39.1); MEAN CORPUSCULAR HEMOGLOBIN 25.7 pg (28-32); MEAN CORPUSCULAR HGB CONC 29.5 g/dL (31-35); MEAN CORPUSCULAR VOLUME 87.2 fL (81-99); MONOCYTES # (AUTO) 0.6 (0.2-0.8); MONOCYTES % 4.3 % (4.4-11.3); NEUTROPHILS # (AUTO) 12.7 (2.1-6.9); NEUTROPHILS % 92.3 % (38.7-80.0); PLATELET COUNT 256 x10e3/uL (140-360); RED BLOOD COUNT 3.58 x10e6/uL (4.3-5.7); RED CELL DISTRIBUTION WIDTH 19.1 % (11.7-14.4)
[2019-02-04 07:06] LABS: ALANINE AMINOTRANSFERASE 17 IU/L (0-55); ALBUMIN 2.4 g/dL (3.5-5.0); ALBUMIN/GLOBULIN RATIO 0.9 (0.8-2.0); ALKALINE PHOSPHATASE 88 IU/L (40-150); ANION GAP 6.9 mmol/L (8-16); BLOOD UREA NITROGEN 24 mg/dL (7-26); BUN/CREATININE RATIO 32 (6-25); CALCIUM 8.2 mg/dL (8.4-10.2); CARBON DIOXIDE 34 mmol/L (22-29); CHLORIDE 105 mmol/L (98-107); CREATININE, SERUM 0.76 mg/dL (0.72-1.25); EST GLOMERULAR FILTRATION RATE > 60 ML/MIN (60-); GLUCOSE 142 mg/dL (74-118); POTASSIUM 3.9 mmol/L (3.5-5.1); SODIUM 142 mmol/L (136-145)
[2019-02-04] MEDS: IPRATROPIUM BROMIDE 0.02% 2.5 ML NEB NEB SCH ×4 (07:15→19:30)
[2019-02-04] MEDS: METHYLPREDNISOLONE SOD SUCC 40 MG/ML VIAL 1ML IV SCH ×2 (09:30→21:41)
--- NOTE | 2019-02-04 09:56 | Progress Note ---
DATE: 02/04/2019 Cardiology Progress Note SUBJECTIVE: The patient was transferred to the ICU yesterday due to hypoxia. He is now on BiPAP and is unable to tolerate BiPAP removal with development of hypoxia. OBJECTIVE: VITAL SIGNS: Temperature 97.6 degrees, pulse 108, respiratory rate 21, blood pressure 123/74, and oxygen saturation 94% on BiPAP. GENERAL: Elderly man, in no acute distress, confused. LUNGS: Clear to auscultation bilaterally. No wheezes or crackles. CARDIOVASCULAR: Normal rate, regular rhythm. No murmur. Normal S1, S2. ABDOMEN: Soft, nontender. EXTREMITIES: No edema. CARDIAC MEDICATIONS: Metoprolol succinate 100 mg p.o. b.i.d., cilostazol 100 mg p.o. b.i.d., aspirin 81 mg p.o. daily, amiodarone 200 mg p.o. daily, and levothyroxine 88 mcg p.o. daily. LABORATORY DATA: WBC 13.72, hemoglobin 9.2, hematocrit 31.2, platelets 256. Sodium 142, potassium 3.9, chloride 105, CO2 of 34, BUN 24, creatinine 0.76. Sputum culture growing Pseudomonas aeruginosa. IMAGING DATA: Chest x-ray; increasing bilateral interstitial and airspace opacities, right greater than left, this may reflect evolving pneumonia or pulmonary hemorrhage given the provided history. TELEMETRY: Normal sinus rhythm. IMPRESSION: 1. Acute hypoxic respiratory failure. 2. Atrial fibrillation with rapid ventricular response, currently sinus rhythm. 3. Altered mental status. 4. Pneumonia. 5. Hypothyroidism. 6. Hypertension. 7. Hyperlipidemia. 8. Anemia. RECOMMENDATIONS: Start intravenous Lasix. Continue current cardiac medications. Otherwise, we will check BNP. Monitor the patient closely on telemetry. Eliquis has been held due to suspected hemoptysis, monitor for further episodes. Evaluation of altered mental status per primary. Antibiotics per Infectious Disease. Thank you for this consult. We will continue to follow. Malena Crawford MD ABS/MODL /[id number]
[2019-02-04] MEDS: LEVOTHYROXINE SODIUM 88 MCG TAB PO SCH (10:27)
[2019-02-04] MEDS: ASPIRIN 81 MG ENTERIC COATED PO SCH (10:27)
[2019-02-04] MEDS: AMIODARONE HCL 200 MG TAB PO SCH (10:27)
[2019-02-04] MEDS: CILOSTAZOL 100 MG TAB PO SCH ×2 (10:27→17:00)
[2019-02-04] MEDS: METOPROLOL SUCCINATE 50 MG TAB XL PO SCH (10:27)
[2019-02-04] MEDS: BENZONATATE 100 MG CAP PO SCH ×3 (10:27→21:42)
[2019-02-04] MEDS: TRAMADOL HCL 50 MG TAB PO SCH ×3 (10:42→21:42)
[2019-02-04] MEDS ORDERED: FUROSEMIDE INJ 10 MG/ML 2 ML VIAL IV SCH ×2 (14:00→17:30)
[2019-02-04] MEDS ORDERED: SODIUM CHLORIDE 0.9% 250ML 250 ML ONE (14:29)
[2019-02-04] MEDS ORDERED: SODIUM CHLORIDE 0.9% 1000ML 250 ML IV SCH (14:30)
--- NOTE | 2019-02-04 14:45 | NUR ---
Nutrition Intervention Note RD Recommendation(s) for Physician: - Continue regular diet as ordered; diet texture per MORTGAGE LOAN OFFICER - Rec Ensure Pudding TID w meals to promote PO intake Plan of Care: RD following, monitoring for tolerance and adequacy, ONS rec Nutrition reason for involvement: F/u RD Assessment 01/26: Pt was transferred to ICU yesterday due to hypoxia. Unable to obtain info as pt was on BiPAP. Per AUGUSTO Hammond, PO intake was poor this AM that pt only drank some juices. No GI complains reported. No ONS was ordered since we last saw pt on 02/02. Order for Ensure pudding has been placed. If pt continued to have poor PO intake, please consult. Will continue to monitor and follow. 02/02: 88 YOM admitted for PNA with AMS and general weakness, pt seen today for LOS. Pt discussed during am rounds, continues with fluctuating mentation- oriented today. 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 Pt states UBW of 150# within the past few months, no significant change noted. Pt denies any GI distress. No family present at time of visit. Discussed supplements, pt receptive to Ensure pudding- recommend TID with meals. MORTGAGE LOAN OFFICER following, recommended nectar thick liquids. Encouraged po intake, pt verbalized understanding. Will monitor and continue to follow. Principal Problems/Diagnoses: AMS, PNA with hypoxia, generalized weakness PMH: CVA, pancreatitis, HTN GI: abdomen soft, non-tender, round, LBM- 02/03 Skin: WDL Labs: 02/04: Glucose 142 H, Ca 8.2 L 02/01: Na 149, K 3.7, Gluc 144 Meds: synthroid, lasix, solu-medrol Ht: 60.7 in Wt: 146.38 lb BMI: 27.9 IBW: 110 lb Malnutrition Evaluation (02/02/19) The patient does not meet criteria for a specified degree of malnutrition at this time. Will re-evaluate at follow-up as appropriate. Nutrition Prescription (Diet Order): Regular diet (chopped, nectar) Estimated Nutritional Needs: 1370-4723 calories/day (18-22 kcal/kg CBW) 66-100 g protein/day (1-1.5 g pro/kg CBW) Diet Adequacy: Not meeting calorie needs, Not meeting protein needs Diet Education Needs Assessment: Diet education not indicated, patient on temporary/transition diet. Nutrition Care Level: Mod Nutrition Diagnosis: Inadequate energy and protein intake related with AMS and current medical status as evidenced by poor intake currently and not meeting needs. Goal: Patient will meet 75-100% of estimated needs by follow up Progress: Not progressing Interventions: Texture, fluid, and fiber modified diet, Commercial food Monitoring/Evaluation: Total energy intake, Total protein intake, Modified diet, Supplement Signed: Krys Mendoza MS, LD, RD
[2019-02-04 15:29] LABS: ABG HCO3 32 mmol/L (23-28); ABG PCO2 41 mmHg (41-51); ABG PH 7.51 (7.31-7.41); ABG PO2 112 mmHg (80-105)
[2019-02-04] MEDS: TEMAZEPAM 15 MG CAP PO SCH (20:58)
[2019-02-04] MEDS: DEXMEDETOMIDINE HCL 200 MCG in SODIUM CHLORIDE 0.9% 50ML 48 ML IV PRN (21:15)
[2019-02-04] MEDS: FUROSEMIDE INJ 10 MG/ML 2 ML VIAL IV SCH (21:41)
[2019-02-04] MEDS: FINASTERIDE 5 MG TAB PO SCH (21:42)
[2019-02-04] MEDS: TAMSULOSIN HCL 0.4 MG CAP PO SCH (21:42)
[2019-02-04] MEDS: GUAIFENESIN/DEXTROMETHORPHAN LIQD 5 ML UDC NG PRN (21:42)
[2019-02-05] VITALS (24 sets, daily range): BP systolic 84–168; BP diastolic 28–129
[2019-02-05] MEDS: MEROPENEM 500MG/ NS 50ML 50 ML IV SCH ×5 (00:47→23:41)
[2019-02-05] MEDS: ALBUTEROL SULF 0.083% NEB SOLN 3 ML NEB NEB SCH ×7 (03:00→23:10)
--- NOTE | 2019-02-05 04:35 | Progress Note ---
DATE: 02/04/2019 SUBJECTIVE: Mr. Sears remains in intensive care unit. No new complaints. He was hypoxemic yesterday, but now he looks comfortable. PHYSICAL EXAMINATION: GENERAL: He is currently alert and oriented. Does not seem to be in acute distress. VITAL SIGNS: Stable. Afebrile. HEENT: He is not icteric. NECK: Supple. CHEST: Clear. HEART: S1 and S2. No S3, S4, or murmur. ABDOMEN: Soft. Bowel sounds present. No tenderness. EXTREMITIES: No edema. SKIN: No rash. LABORATORY DATA: His white count was 13.7 and hemoglobin of 9. IMPRESSION AND PLAN: 1. Pneumonia with hypoxemia, on meropenem. 2. Pneumonia with Pseudomonas aeruginosa. 3. Anemia of chronic disease. 4. Atrial fibrillation with rapid ventricular response, in sinus rhythm. 5. Hypothyroidism. 6. Hyperlipidemia. 7. Debility. Plan on 2 weeks of IV meropenem. We will follow. MD KATIE Seals/ANGELES /[id number]
[2019-02-05] MEDS: LEVOTHYROXINE SODIUM 88 MCG TAB PO SCH (06:12)
[2019-02-05 06:19] LABS: BASOPHILS % 0.1 % (0.0-1.0); HEMATOCRIT 30.8 % (38.2-49.6); HEMOGLOBIN 9.2 g/dL (14.0-18.0); LYMPHOCYTES # (AUTO) 0.3 (1.0-3.2); MEAN CORPUSCULAR HEMOGLOBIN 25.8 pg (28-32); MEAN CORPUSCULAR HGB CONC 29.9 g/dL (31-35); MEAN CORPUSCULAR VOLUME 86.3 fL (81-99); MONOCYTES # (AUTO) 0.5 (0.2-0.8); MONOCYTES % 3.8 % (4.4-11.3); NEUTROPHILS # (AUTO) 12.6 (2.1-6.9); NEUTROPHILS % 93.4 % (38.7-80.0); PLATELET COUNT 256 x10e3/uL (140-360); RED BLOOD COUNT 3.57 x10e6/uL (4.3-5.7); RED CELL DISTRIBUTION WIDTH 19.6 % (11.7-14.4)
[2019-02-05 06:30] LABS: ALANINE AMINOTRANSFERASE 18 IU/L (0-55); ALBUMIN 2.3 g/dL (3.5-5.0); ALBUMIN/GLOBULIN RATIO 0.9 (0.8-2.0); ALKALINE PHOSPHATASE 83 IU/L (40-150); ANION GAP 9.7 mmol/L (8-16); BLOOD UREA NITROGEN 23 mg/dL (7-26); BUN/CREATININE RATIO 28 (6-25); CALCIUM 8.2 mg/dL (8.4-10.2); CARBON DIOXIDE 35 mmol/L (22-29); CHLORIDE 104 mmol/L (98-107); CREATININE, SERUM 0.82 mg/dL (0.72-1.25); EST GLOMERULAR FILTRATION RATE > 60 ML/MIN (60-); GLUCOSE 142 mg/dL (74-118); MAGNESIUM 1.7 MG/DL (1.3-2.1); POTASSIUM 3.7 mmol/L (3.5-5.1); SODIUM 145 mmol/L (136-145)
[2019-02-05] MEDS: IPRATROPIUM BROMIDE 0.02% 2.5 ML NEB NEB SCH ×4 (07:07→19:20)
[2019-02-05] MEDS: METHYLPREDNISOLONE SOD SUCC 40 MG/ML VIAL 1ML IV SCH ×2 (08:39→21:01)
[2019-02-05] MEDS: ASPIRIN 81 MG ENTERIC COATED PO SCH (08:39)
[2019-02-05] MEDS: BENZONATATE 100 MG CAP PO SCH ×3 (08:40→21:01)
[2019-02-05] MEDS: AMIODARONE HCL 200 MG TAB PO SCH (08:40)
[2019-02-05] MEDS: TRAMADOL HCL 50 MG TAB PO SCH ×3 (08:40→21:01)
[2019-02-05] MEDS: FUROSEMIDE INJ 10 MG/ML 2 ML VIAL IV SCH (08:40)
[2019-02-05] MEDS: CILOSTAZOL 100 MG TAB PO SCH ×2 (08:40→17:00)
--- NOTE | 2019-02-05 11:21 | Diagnostic Imaging Report ---
Limited bilateral chest ultrasound History: Evaluate size of known pleural effusions. Comparison: Chest radiograph 02/03/2019. Technique/findings: Limited bilateral chest ultrasound was performed to evaluate for pleural effusion. Bilateral moderate pleural effusions are identified. IMPRESSION: Bilateral moderate pleural effusions. Signed by: Dr. Ivan Horton MD on 02/05/2019 11:18 AM
--- NOTE | 2019-02-05 13:19 | Diagnostic Imaging Report ---
EXAM: CHEST SINGLE (PORTABLE) DATE: 02/05/2019 10:16 AM INDICATION: Acute pneumonia COMPARISON: Chest x-ray, 02/03/2019 FINDINGS: Lines and tubes: None Heart size normal. There is improving pulmonary vascular congestion or multifocal pneumonia. Small bilateral pleural effusions are again noted. No pneumothorax. Upper abdomen is not fully included for evaluation. No evidence for free air beneath the right hemidiaphragm. No acute bony abnormality. IMPRESSION: Improvement of pulmonary vascular congestion or multifocal pneumonia. Small bilateral pleural effusions are again noted. Signed by: Dr. Parvez Echevarria M.D. on 02/05/2019 1:16 PM
--- NOTE | 2019-02-05 13:52 | NUR ---
ST NOTE: Pt on bipap and can not tolerate NC w/o desaturating, deferring NMES to treat dysaphgia today, will check pt status on Friday02/08/29, handoff to RT Radha Gonzalez RN
--- NOTE | 2019-02-05 13:57 | Progress Note ---
DATE: 02/05/2019 Cardiology Progress Note SUBJECTIVE: The patient denies chest pain or shortness of breath. OBJECTIVE: VITAL SIGNS: Temperature 98.8 degrees, pulse 80, respiratory rate 24, blood pressure 123/49, oxygen saturation 98% on 15 L nasal cannula. GENERAL: Elderly man, no acute distress, more alert today. LUNGS: Clear to auscultation bilaterally. No wheezes or crackles. CARDIOVASCULAR: Normal rate, regular rhythm. No murmur. Normal S1, S2. ABDOMEN: Soft, nontender. EXTREMITIES: No edema. CARDIAC MEDICATIONS: Cilostazol 100 mg p.o. b.i.d., amiodarone 200 mg p.o. daily, aspirin 81 mg p.o. daily, levothyroxine 88 mcg p.o. daily, furosemide 40 mg IV q.8 hours. LABORATORY DATA: WBC was 13.44, hemoglobin 9.2, hematocrit 30.8, platelets 256. Sodium 145, potassium 3.7, chloride 104, CO2 35, BUN 23, creatinine 0.82. BNP 292. TELEMETRY: Normal sinus rhythm. IMPRESSION: 1. Acute hypoxic respiratory failure, improving. 2. Atrial fibrillation with rapid ventricular response, currently sinus rhythm. 3. Altered mental status. 4. Pneumonia. 5. Hypothyroidism. 6. Hypertension. 7. Hyperlipidemia. 8. Anemia. RECOMMENDATIONS: The patient's respiratory status is improving with diuresis. We will decrease metoprolol to 50 mg p.o. b.i.d. Continue current cardiac medications otherwise. Monitor the patient closely on telemetry. Eliquis was held due to suspected hemoptysis. If hemoglobin is stable, we will plan to resume after discussion with Pulmonary. Evaluation of altered mental status per primary, antibiotics per Infectious Disease. Thank you for this consult. We will continue to follow. Malena Crawford MD ABS/MODL /[id number]
[2019-02-05] MEDS ORDERED: FUROSEMIDE INJ 10 MG/ML 2 ML VIAL IV SCH (14:00)
[2019-02-05] MEDS: FUROSEMIDE INJ 10 MG/ML 4 ML VIAL IV SCH ×2 (14:00→21:01)
--- NOTE | 2019-02-05 15:00 | NUR ---
pending authorization for thoracentesis from family. 's phone number given to dr. martinez to discuss procedure
[2019-02-05] MEDS: METOPROLOL SUCCINATE 50 MG TAB XL PO SCH (17:00)
[2019-02-05] MEDS: DEXMEDETOMIDINE HCL 200 MCG in SODIUM CHLORIDE 0.9% 50ML 48 ML IV PRN (20:00)
[2019-02-05] MEDS: FINASTERIDE 5 MG TAB PO SCH (21:01)
[2019-02-05] MEDS: TAMSULOSIN HCL 0.4 MG CAP PO SCH (21:01)
[2019-02-06] VITALS (25 sets, daily range): BP systolic 80–154; BP diastolic 43–85
[2019-02-06] MEDS: IPRATROPIUM BROMIDE 0.02% 2.5 ML NEB NEB SCH ×4 (02:25→19:05)
[2019-02-06] MEDS: ALBUTEROL SULF 0.083% NEB SOLN 3 ML NEB NEB SCH ×6 (02:25→23:25)
[2019-02-06 04:57] LABS: HEMATOCRIT 33.9 % (38.2-49.6); HEMOGLOBIN 10.2 g/dL (14.0-18.0); LYMPHOCYTES # (AUTO) 0.3 (1.0-3.2); LYMPHOCYTES % 2.2 % (18.0-39.1); MEAN CORPUSCULAR HEMOGLOBIN 25.9 pg (28-32); MEAN CORPUSCULAR HGB CONC 30.1 g/dL (31-35); MONOCYTES # (AUTO) 0.3 (0.2-0.8); MONOCYTES % 2.7 % (4.4-11.3); NEUTROPHILS # (AUTO) 11.6 (2.1-6.9); NEUTROPHILS % 94.5 % (38.7-80.0); PLATELET COUNT 232 x10e3/uL (140-360); RED BLOOD COUNT 3.94 x10e6/uL (4.3-5.7); RED CELL DISTRIBUTION WIDTH 19.7 % (11.7-14.4)
[2019-02-06 05:19] LABS: ALANINE AMINOTRANSFERASE 20 IU/L (0-55); ALBUMIN 2.4 g/dL (3.5-5.0); ALBUMIN/GLOBULIN RATIO 0.9 (0.8-2.0); ALKALINE PHOSPHATASE 83 IU/L (40-150); ANION GAP 12.9 mmol/L (8-16); BLOOD UREA NITROGEN 23 mg/dL (7-26); BUN/CREATININE RATIO 28 (6-25); CALCIUM 8.1 mg/dL (8.4-10.2); CARBON DIOXIDE 36 mmol/L (22-29); CHLORIDE 101 mmol/L (98-107); CREATININE, SERUM 0.81 mg/dL (0.72-1.25); EST GLOMERULAR FILTRATION RATE > 60 ML/MIN (60-); GLUCOSE 147 mg/dL (74-118); MAGNESIUM 1.8 MG/DL (1.3-2.1); POTASSIUM 3.9 mmol/L (3.5-5.1); SODIUM 146 mmol/L (136-145)
[2019-02-06] MEDS: FUROSEMIDE INJ 10 MG/ML 4 ML VIAL IV SCH ×2 (05:46→17:02)
[2019-02-06] MEDS: MEROPENEM 500MG/ NS 50ML 50 ML IV SCH ×3 (05:46→17:03)
--- NOTE | 2019-02-06 07:30 | NUR ---
Patient received awake, alert and Ox2 to person and place only. Reoriented to today's date and time. On Bipap and respirations are even and unlabored and 02 sats are 99%. RT here at bedside and Bipap taken off and patient placed on Hi-Zurdo nasal cannula and tolerating well with 02 sats at 98% and respirations are even and unlabored.
--- NOTE | 2019-02-06 07:55 | NUR ---
Patient received on ETT to Vent: PRVC-18; TV-450; FIO2-40% and Peep-5 and O2 sats are 100%. On Propofol drip at 30mcg and Fentanyl drip at 25mcg and Christine-RT here at bedside to assess patient for weaning trial as per Dr. Jenkins's orders. Sedation placed on hold now for weaning trial this am. V/S are stable.
--- NOTE | 2019-02-06 08:03 | NUR ---
Previous Entry entered in Error on wrong patient.
--- NOTE | 2019-02-06 08:30 | NUR ---
Patient ate only 3 small bites of scrambled egg, drank 100% of his thickened orange juice and milk and then became short of breath and desaturated down to 67% while on Hi-Zurdo and heart rate increased to 140 bpm. Placed back on Bipap and 02 sats immediately went up to 94%.
[2019-02-06] MEDS: ASPIRIN 81 MG ENTERIC COATED PO SCH (09:14)
[2019-02-06] MEDS: CILOSTAZOL 100 MG TAB PO SCH ×2 (09:14→17:02)
[2019-02-06] MEDS: AMIODARONE HCL 200 MG TAB PO SCH (09:15)
[2019-02-06] MEDS: BENZONATATE 100 MG CAP PO SCH ×3 (09:16→22:11)
[2019-02-06] MEDS: METOPROLOL SUCCINATE 50 MG TAB XL PO SCH ×3 (09:19→17:02)
[2019-02-06] MEDS: TRAMADOL HCL 50 MG TAB PO SCH ×4 (09:20→22:11)
[2019-02-06] MEDS: LEVOTHYROXINE SODIUM 88 MCG TAB PO SCH (09:41)
--- NOTE | 2019-02-06 16:11 | Diagnostic Imaging Report ---
CT chest, abdomen and pelvis without intravenous contrast Indication: Shortness of breath, possible aspiration, left side abdominal pain Technique: Thin collimation axial images obtained from the thoracic inlet to the level of the pubic symphysis. No contrast was administered. RADIATION DOSE: Total DLP: 517.7 mGy*cm Estimated effective dose: (DLP x 0.015 x size factor) mSv CTDIvol has been reviewed. It is below the limits set by the Radiation Protocol Committee (RPC). Dose reduction techniques used: Automated exposure control, adjustment of the mAs and/or kVp according to patient size, standardized low-dose protocol, and/or iterative reconstruction technique. Comparison: CT PE 01/27/2019, CT abdomen/pelvis 06/27/2010. CHEST FINDINGS: Lymph nodes: No enlarged axillary, supraclavicular lymph nodes. Subcarinal lymph node measures 11 mm in short axis. There are calcified hilar lymph nodes, with chunky right hilar lymph nodes. Thyroid: Visualized portions are normal. Mediastinum: [PICC line terminates in the SVC. Main pulmonary artery measures 3.4 cm in diameter. There are is stable of the coronary arteries and mitral valve. No pericardial effusion. The esophagus is collapsed. Lungs: Right Lung: Centrilobular and paraseptal emphysema. Fibrocalcific plaque in the apex is stable. Groundglass airspace opacities in the posterior upper lobe are similar. There is new atelectasis of the middle lobe. Calcified granulomata in the middle and lower lobes are stable. Left Lung: Centrilobular and paraseptal emphysema. Paraseptal bleb in the left lower lobe measures 7 cm in largest dimension and is stable. No evidence of fluid or wall thickening. Apical fibrocalcific plaque is stable. Calcified granulomata throughout the lungs are similar. No confluent infiltrates. Airways: There is fluid in the right and left bronchi and fluid/debris in the bronchus intermedius and proximal right middle lobe bronchus. There is diffuse bronchial wall thickening in each lung. Pleura:Posterior pleural effusions, right larger than left, measuring 2.1 cm. ABDOMEN FINDINGS: Liver: Increased attenuation is stable. Low attenuating lesion in segment 4 measures 7 mm and may represent a cyst.. The intrahepatic veins and IVC are prominent suggestive of right heart failure. Subcapsular calcification is stable. Gallbladder: Absent. No biliary ductal dilatation. Pancreas: Somewhat featureless. No soft tissue mass or ductal dilatation. The peripancreatic fluid collections are no longer visualized.. Spleen: Normal in size with calcified granulomata. Adrenal Glands: No evidence for mass. Kidneys: Right: Low attenuating lesion in the anterior interpolar region measures 16 mm and is suggestive of a cyst. There is a punctate calcification in the lower pole which may or may not be vascular. No hydronephrosis Left: Several renal vascular calcifications. No cortical mass. No hydronephrosis. Lymph Nodes: No enlarged abdominal or periaortic lymph nodes. Aorta: Infrarenal aortic aneurysm measures 3.2 x 2.8 cm. There are calcifications throughout the aorta. No retroperitoneal inflammation or hemorrhage. A stent is in the left common iliac artery extending into the external iliac artery. This is stable. A femoral to femoral bypass graft is present and appears new since 2010. PELVIS FINDINGS: Bowel: Stomach: Collapsed. Small Bowel: Normal in caliber with normal wall thickness. Large Bowel: Contains enteric contrast and is normal in diameter with normal wall thickness. No significant burden of diverticulosis. Appendix: Not visualized and may be absent or collapsed. Bladder: Contains a Jett catheter and nondependent air. There are calcifications in the prostate gland. The ureters are not dilated. Lymph Nodes: No enlarged abdominal or perirectal lymph nodes. 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 The other pseudocysts in 2010 are no longer visualized. Trace of presacral edema. No free air. Bones: Diffuse demineralization of the spine. Mild superior endplate compression of L1. No associated hematoma. No listhesis. Mild dextro scoliosis of the lumbar spine. There are healing/healed left inferior rib fractures, numbers 8 through 10. These are not displaced. Visualized portions of the sternum, shoulders, and pelvis are intact. No dislocation. Soft tissues: There are are inflammatory changes surrounding the left femoral vascular bundle likely from femorofemoral bypass graft placement. No defined fluid collection. IMPRESSION: 1. New right middle lobe collapse with fluid/debris in the bronchi suggestive of aspiration. 2. Severe emphysema and bronchial wall thickening suggestive of bronchitis. Infiltrates in the upper lobes, right greater than left, are suspected. Prominent mediastinal lymph nodes may be reactive from pneumonia. 3. Enlarged main pulmonary artery is suggestive of pulmonary artery hypertension. 4. Bilateral pleural effusions. No pneumothorax. 5. Nondisplaced age-indeterminate rib fractures. Age indeterminate superior endplate compression deformity of L1. 6. Increased attenuation of the liver suggestive of amiodarone use given the findings of right heart failure. 7. Fluid collection posterior to the spleen and inferior to the left adrenal gland may be the residual of a pseudocyst. Other loculated fluid collections have resolved. 8. Featureless pancreas likely result of previous bouts of pancreatitis. 9. Cyst in the right kidney as described above. 10. Infrarenal aortic aneurysm measures 3.2 cm. Stable stent in the left common iliac artery. New femoral to femoral bypass graft. Patency cannot be assessed given the lack of intravenous contrast. 11. No evidence for bowel obstruction or inflammation. 12. Healed granulomatous inflammation. Signed by: Dr. Jamal Willson MD on 02/06/2019 4:07 PM
--- NOTE | 2019-02-06 16:29 | NUR ---
verbalizes understanding and consent of current care. wants to sign consent for procedure explained to her yesterday. pt also nods to understanding and consent.
[2019-02-06] MEDS: APIXABAN 5 MG TABLET PO SCH (17:02)
--- NOTE | 2019-02-06 17:18 | Progress Note ---
DATE: 02/06/2019 Cardiology Progress Note SUBJECTIVE: No major events overnight. He remains on BiPAP. Denies any chest pain. OBJECTIVE: VITAL SIGNS: Temperature 98.3, pulse 87, respiratory rate 22, blood pressure 118/59, and saturating 98% on 60% FiO2 on BiPAP. GENERAL: Elderly white man, ill-appearing and thin, in no acute distress. CARDIOVASCULAR: Regular rate and rhythm. No murmurs, rubs, or gallops. No lower extremity edema or ulcerations. LUNGS: Coarse breath sounds bilaterally. ABDOMEN: Soft, nontender, and nondistended. No masses. NEURO AND PSYCH: Alert and oriented x1, in no acute distress. CARDIOVASCULAR MEDICATIONS: Reviewed. LABORATORY DATA: Reviewed. TELEMETRY DATA: Reviewed, shows sinus rhythm with occasional sinus tachycardia. ASSESSMENT: 1. Acute hypoxemic respiratory failure. 2. Atrial fibrillation with rapid ventricular response, currently in sinus rhythm. 3. Altered mental status. 4. Pneumonia. 5. Hypothyroidism. 6. Hypertension. 7. Hyperlipidemia. 8. Anemia. RECOMMENDATIONS: Continues to be dependent on BiPAP. Continue current dose of metoprolol. Remains in sinus rhythm. Holding Eliquis due to some mild bloody sputum post extubation. We will wait until the patient's respiratory status improves before resuming due to risk of bleeding and airway. Thank you for this consult. We will continue to follow. MD ROD Ngo/ANGELES /[id number]
[2019-02-06] MEDS: DEXMEDETOMIDINE HCL 200 MCG in SODIUM CHLORIDE 0.9% 50ML 48 ML IV PRN (21:46)
[2019-02-06] MEDS: TAMSULOSIN HCL 0.4 MG CAP PO SCH (22:10)
[2019-02-06] MEDS: FINASTERIDE 5 MG TAB PO SCH (22:11)
[2019-02-06] MEDS: GUAIFENESIN/DEXTROMETHORPHAN LIQD 5 ML UDC NG PRN (22:11)
[2019-02-07] VITALS (25 sets, daily range): BP systolic 77–128; BP diastolic 46–95
[2019-02-07] MEDS: MEROPENEM 500MG/ NS 50ML 50 ML IV SCH ×5 (00:20→23:30)
[2019-02-07] MEDS: IPRATROPIUM BROMIDE 0.02% 2.5 ML NEB NEB SCH ×4 (01:30→20:30)
[2019-02-07] MEDS: ALBUTEROL SULF 0.083% NEB SOLN 3 ML NEB NEB SCH ×5 (01:30→19:00)
[2019-02-07 05:28] LABS: BASOPHILS % 0.1 % (0.0-1.0); EOSINOPHILS % 0.2 % (0.0-6.0); HEMATOCRIT 30.9 % (38.2-49.6); HEMOGLOBIN 9.2 g/dL (14.0-18.0); LYMPHOCYTES # (AUTO) 0.7 (1.0-3.2); LYMPHOCYTES % 4.8 % (18.0-39.1); MEAN CORPUSCULAR HEMOGLOBIN 25.8 pg (28-32); MEAN CORPUSCULAR HGB CONC 29.8 g/dL (31-35); MEAN CORPUSCULAR VOLUME 86.6 fL (81-99); MONOCYTES # (AUTO) 1.2 (0.2-0.8); MONOCYTES % 9.1 % (4.4-11.3); NEUTROPHILS # (AUTO) 11.6 (2.1-6.9); NEUTROPHILS % 85.1 % (38.7-80.0); PLATELET COUNT 215 x10e3/uL (140-360); RED BLOOD COUNT 3.57 x10e6/uL (4.3-5.7); RED CELL DISTRIBUTION WIDTH 19.8 % (11.7-14.4)
[2019-02-07 05:57] LABS: ANION GAP 10.4 mmol/L (8-16); BLOOD UREA NITROGEN 28 mg/dL (7-26); BUN/CREATININE RATIO 33 (6-25); CALCIUM 8.1 mg/dL (8.4-10.2); CARBON DIOXIDE 39 mmol/L (22-29); CHLORIDE 99 mmol/L (98-107); CREATININE, SERUM 0.85 mg/dL (0.72-1.25); EST GLOMERULAR FILTRATION RATE > 60 ML/MIN (60-); GLUCOSE 118 mg/dL (74-118); POTASSIUM 3.4 mmol/L (3.5-5.1); SODIUM 145 mmol/L (136-145)
[2019-02-07] MEDS: LEVOTHYROXINE SODIUM 88 MCG TAB PO SCH (06:19)
[2019-02-07] MEDS: BENZONATATE 100 MG CAP PO SCH ×3 (08:31→20:30)
[2019-02-07] MEDS: AMIODARONE HCL 200 MG TAB PO SCH (08:31)
[2019-02-07] MEDS: ASPIRIN 81 MG ENTERIC COATED PO SCH (08:31)
[2019-02-07] MEDS: METOPROLOL SUCCINATE 50 MG TAB XL PO SCH ×2 (08:31→16:15)
[2019-02-07] MEDS: TRAMADOL HCL 50 MG TAB PO SCH ×3 (08:31→20:30)
[2019-02-07] MEDS: FUROSEMIDE INJ 10 MG/ML 4 ML VIAL IV SCH ×2 (08:31→16:14)
[2019-02-07] MEDS: CILOSTAZOL 100 MG TAB PO SCH ×2 (08:31→16:15)
[2019-02-07] MEDS: APIXABAN 5 MG TABLET PO SCH ×2 (08:31→16:14)
[2019-02-07] MEDS: BUSPIRONE HCL 5 MG TAB PO PRN (12:00)
--- NOTE | 2019-02-07 16:48 | Progress Note ---
DATE: 02/07/2019 Cardiology Progress Note SUBJECTIVE: No major events overnight. Now on nasal cannula. OBJECTIVE: VITAL SIGNS: Temperature afebrile, pulse 83, respiratory rate 20, blood pressure 119/64, saturating 98% on 8 L nasal cannula. GENERAL: Elderly white man, ill appearing, thin, in no acute distress. CARDIOVASCULAR: Regular rate and rhythm. No murmurs, rubs, or gallops. LUNGS: Clear to auscultation anteriorly. ABDOMEN: Soft, nontender, nondistended. No masses. NEURO AND PSYCH: Alert and oriented x2. No acute distress. CARDIOVASCULAR MEDICATIONS: Reviewed. LABORATORY DATA: Reviewed. TELEMETRY DATA: Reviewed, shows normal sinus rhythm with occasional sinus tachycardia. ASSESSMENT: 1. Acute hypoxemic respiratory failure. 2. Atrial fibrillation with rapid ventricular response, currently in sinus rhythm. 3. Altered mental status. 4. Pneumonia. 5. Hypothyroidism. 6. Hypertension. 7. Hyperlipidemia. 8. Anemia. RECOMMENDATIONS: Respiratory status is improving. Heart rate remains well controlled. Okay to resume Eliquis at this point. Thank you for this consult. We will continue to follow. MD ROD Ngo/ANGELES /[id number]
--- NOTE | 2019-02-07 18:16 | NUR ---
patient tolerated 8LHF NC for most of day. approximately 8-4 then patient O2 sats dropped to 83% and HR Afib w RVR at 130's. put patient back on Bi-Pap and gave scheduled metoprolol.
[2019-02-07] MEDS: TAMSULOSIN HCL 0.4 MG CAP PO SCH (20:29)
[2019-02-07] MEDS: FINASTERIDE 5 MG TAB PO SCH (20:30)
[2019-02-07] MEDS: METOPROLOL TARTRATE INJ 1 MG/ML VIAL IV PRN (22:07)
[2019-02-08] VITALS (22 sets, daily range): BP systolic 96–138; BP diastolic 50–81
[2019-02-08] MEDS: IPRATROPIUM BROMIDE 0.02% 2.5 ML NEB NEB SCH ×4 (00:30→19:30)
[2019-02-08] MEDS: ALBUTEROL SULF 0.083% NEB SOLN 3 ML NEB NEB SCH ×6 (00:30→19:30)
[2019-02-08] MEDS: METOPROLOL TARTRATE INJ 1 MG/ML VIAL IV PRN (02:39)
[2019-02-08 05:01] LABS: BASOPHILS % 0.1 % (0.0-1.0); EOSINOPHILS # (AUTO) 0.2 (0.0-0.4); EOSINOPHILS % 1.7 % (0.0-6.0); HEMATOCRIT 37.8 % (38.2-49.6); HEMOGLOBIN 11.3 g/dL (14.0-18.0); LYMPHOCYTES # (AUTO) 0.7 (1.0-3.2); MEAN CORPUSCULAR HEMOGLOBIN 25.7 pg (28-32); MEAN CORPUSCULAR HGB CONC 29.9 g/dL (31-35); MEAN CORPUSCULAR VOLUME 86.1 fL (81-99); MONOCYTES # (AUTO) 1.3 (0.2-0.8); MONOCYTES % 9.8 % (4.4-11.3); NEUTROPHILS % 82.6 % (38.7-80.0); PLATELET COUNT 246 x10e3/uL (140-360); RED BLOOD COUNT 4.39 x10e6/uL (4.3-5.7); RED CELL DISTRIBUTION WIDTH 20.2 % (11.7-14.4)
[2019-02-08] MEDS: MEROPENEM 500MG/ NS 50ML 50 ML IV SCH ×3 (05:28→18:06)
[2019-02-08 07:04] LABS: ALANINE AMINOTRANSFERASE 20 IU/L (0-55); ALBUMIN 2.4 g/dL (3.5-5.0); ALBUMIN/GLOBULIN RATIO 0.8 (0.8-2.0); ALKALINE PHOSPHATASE 93 IU/L (40-150); ANION GAP 10.8 mmol/L (8-16); BLOOD UREA NITROGEN 22 mg/dL (7-26); BUN/CREATININE RATIO 28 (6-25); CALCIUM 8.3 mg/dL (8.4-10.2); CARBON DIOXIDE 37 mmol/L (22-29); CHLORIDE 100 mmol/L (98-107); CREATININE, SERUM 0.79 mg/dL (0.72-1.25); EST GLOMERULAR FILTRATION RATE > 60 ML/MIN (60-); GLUCOSE 123 mg/dL (74-118); POTASSIUM 3.8 mmol/L (3.5-5.1); SODIUM 144 mmol/L (136-145)
[2019-02-08] MEDS: BENZONATATE 100 MG CAP PO SCH (08:27)
[2019-02-08] MEDS: LEVOTHYROXINE SODIUM 88 MCG TAB PO SCH (08:27)
[2019-02-08] MEDS: TRAMADOL HCL 50 MG TAB PO SCH ×3 (08:27→21:30)
[2019-02-08] MEDS: AMIODARONE HCL 200 MG TAB PO SCH (09:00)
[2019-02-08] MEDS: CILOSTAZOL 100 MG TAB PO SCH ×2 (09:00→18:06)
[2019-02-08] MEDS: METOPROLOL SUCCINATE 50 MG TAB XL PO SCH ×2 (09:00→18:06)
[2019-02-08] MEDS: FUROSEMIDE INJ 10 MG/ML 4 ML VIAL IV SCH ×2 (09:00→18:06)
--- NOTE | 2019-02-08 11:30 | NUR ---
200 ccs of straw colored fluid drained from the right lung
--- NOTE | 2019-02-08 12:02 | Diagnostic Imaging Report ---
Examination: Single AP view of the chest. COMPARISON: CT chest 02/06/2019 INDICATION: Status post right thoracentesis DISCUSSION: Interval right thoracentesis with evacuation of small right pleural effusion. No pneumothorax. Partial right middle lobe collapse is unchanged. Background emphysematous changes and small left pleural effusion unchanged. No acute osseous abnormality. IMPRESSION: Status post right thoracentesis. No pneumothorax. Signed by: Dr. Zia Guerra M.D. on 02/08/2019 11:58 AM
--- NOTE | 2019-02-08 12:51 | Diagnostic Imaging Report ---
Date and Time: 02/08/2019 Procedure: Ultrasound-guided right thoracentesis finishing machine operator automatic: Dr. Guerra Assistants: None Pre-operative diagnosis: Pleural effusion Post-operative diagnosis: Right pleural effusion Conscious Sedation: None The patient's heart rate and pulse oximetry were continuously monitored by the ICU nurse. Blood pressure was monitored at 5 minute intervals. Additional Medications: Lidocaine 1% for local anesthesia Blood products administered: None Complications: No immediate Estimated blood loss: Minimal Specimens: 200 cc straw-colored fluid Implants: None Condition at completion: Guarded Disposition: Remain in ICU DISCUSSION: Informed consent was obtained and documented in the medical record. The patient was placed in the left lateral decubitus position. Preliminary sonographic evaluation confirmed a suitable percutaneous approach to the small right pleural effusion. The overlying skin was prepped and draped in the standard sterile fashion. 1% lidocaine was infiltrated into the skin and subcutaneous tissues for local anesthesia. Then under continuous sonographic guidance, a 5 Slovak Yueh needle catheter was advanced into the pleural space. The catheter was advanced off the needle and connected to vacuum bottle with evacuation of 200 cc straw-colored fluid. Post procedure sonographic evaluation confirmed no significant residual effusion. The catheter was removed and a sterile dressing was applied. The patient tolerated the procedure well without immediate complication. FINDINGS: Small right pleural effusion. IMPRESSION: Successful ultrasound-guided right thoracentesis with evacuation of 200 cc straw-colored fluid. Specimen was submitted for laboratory analysis as requested by the referring clinical team. Signed by: Dr. Zia Guerra M.D. on 02/08/2019 12:48 PM
[2019-02-08 14:18] LABS: RBC,BODY FLUID 197 cells/uL; WBC,BODY FLUID 86 cells/uL
[2019-02-08 14:44] LABS: LYMPHOCYTES,BODY FLUID 50 %; MONO/MACROPHG,BODY FLUID 7 %; NEUTROPHILS,BODY FLUID 30 %
[2019-02-08 14:53] LABS: BODY FLUID APPEARANCE SL.CLOUDY; BODY FLUID COLOR STRAW; BODY FLUID TYPE PLEURAL
[2019-02-08 14:54] LABS: OTHER CELLS,BODY FLUID 13 %
[2019-02-08] MEDS: FINASTERIDE 5 MG TAB PO SCH (21:28)
[2019-02-08] MEDS: TAMSULOSIN HCL 0.4 MG CAP PO SCH (21:28)
[2019-02-09] VITALS (17 sets, daily range): BP systolic 91–145; BP diastolic 48–85
[2019-02-09] MEDS: IPRATROPIUM BROMIDE 0.02% 2.5 ML NEB NEB SCH ×4 (00:05→19:10)
[2019-02-09] MEDS: ALBUTEROL SULF 0.083% NEB SOLN 3 ML NEB NEB SCH ×7 (00:05→22:10)
[2019-02-09] MEDS: MEROPENEM 500MG/ NS 50ML 50 ML IV SCH ×4 (00:07→17:40)
--- NOTE | 2019-02-09 00:39 | Progress Note ---
DATE: 02/08/2019 Cardiology Progress Note SUBJECTIVE: No major events overnight. OBJECTIVE: VITAL SIGNS: Temperature 100.0, pulse 87, respiratory rate 23, blood pressure 126/67, and saturating 95% on 10 L nasal cannula. GENERAL: Elderly male, in no acute distress. CARDIOVASCULAR: Regular rate and rhythm. No murmurs, rubs, or gallops. LUNGS: Clear to auscultation anteriorly. ABDOMEN: Soft, nontender, and nondistended. No masses. NEURO AND PSYCH: Alert and oriented to person, place, and time. Normal affect. CARDIOVASCULAR MEDICATIONS: Reviewed. LABORATORY DATA: Reviewed. TELEMETRY DATA: Reviewed, shows sinus rhythm with occasional sinus tachycardia. ASSESSMENT AND PLAN: 1. Acute hypoxemic respiratory failure. 2. Atrial fibrillation with rapid ventricular response, currently in sinus rhythm. 3. Altered mental status. 4. Pneumonia. 5. Hypothyroidism. 6. Hypertension. 7. Hyperlipidemia. 8. Anemia. RECOMMENDATIONS: Heart rate remains well controlled. Continue Eliquis for anticoagulation. Thank you for this consult. We will continue to follow. MD ROD Ngo/MODL /[id number]
[2019-02-09] MEDS: LEVOTHYROXINE SODIUM 88 MCG TAB PO SCH (08:31)
[2019-02-09] MEDS: AMIODARONE HCL 200 MG TAB PO SCH (08:31)
[2019-02-09] MEDS: APIXABAN 5 MG TABLET PO SCH ×3 (08:31→17:39)
[2019-02-09] MEDS: CILOSTAZOL 100 MG TAB PO SCH ×3 (08:31→17:39)
[2019-02-09] MEDS: FUROSEMIDE INJ 10 MG/ML 4 ML VIAL IV SCH ×2 (08:31→17:39)
[2019-02-09] MEDS: TRAMADOL HCL 50 MG TAB PO SCH ×4 (08:31→21:26)
[2019-02-09] MEDS: METOPROLOL SUCCINATE 50 MG TAB XL PO SCH ×3 (08:33→17:39)
--- NOTE | 2019-02-09 14:41 | NUR ---
Nutrition Intervention Note RD Recommendation(s) for Physician: - Continue regular diet as ordered; diet texture per INVENTORY ADMINISTRATOR - Rec Ensure Enlive TID w meals to promote PO intake - If PO continues to be poor, rec to initiate EN to meet nutrition needs. - Consult RD for TF rec Plan of Care: RD following, monitoring for tolerance and adequacy, ONS rec Nutrition reason for involvement: F/u RD Assessment 02/09: Visited pt in the room. Unable to obtain hx due to confusion. INVENTORY ADMINISTRATOR following for therapy. Per AUGUSTO Garcia, pt was not eating much but drank a lot of fluids. No GI issue reported. Will continue to monitor and follow. 01/26: Pt was transferred to ICU yesterday due to hypoxia. Unable to obtain info as pt was on BiPAP. Per AUGUSTO Hammond, PO intake was poor this AM that pt only drank some juices. No GI complains reported. No ONS was ordered since we last saw pt on 02/02. Order for Ensure pudding has been placed. If pt continued to have poor PO intake, please consult. Will continue to monitor and follow. 02/02: 88 YOM admitted for PNA with AMS and general weakness, pt seen today for LOS. Pt discussed during am rounds, continues with fluctuating mentation- oriented today. 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 Pt states UBW of 150# within the past few months, no significant change noted. Pt denies any GI distress. No family present at time of visit. Discussed supplements, pt receptive to Ensure pudding- recommend TID with meals. INVENTORY ADMINISTRATOR following, recommended nectar thick liquids. Encouraged po intake, pt verbalized understanding. Will monitor and continue to follow. Principal Problems/Diagnoses: AMS, PNA with hypoxia, generalized weakness PMH: CVA, pancreatitis, HTN GI: abdomen soft, non-tender, round, LBM- 02/06 Skin: WDL Labs: 02/09: Glucose 123 H, Ca 8.3 L 02/04: Glucose 142 H, Ca 8.2 L 02/01: Na 149, K 3.7, Gluc 144 Meds: abx, eliquis, lasix, synthroid Ht: 60.7 in Wt: 146.38 lb; 125.06lb BMI: 27.9 IBW: 110 lb Malnutrition Evaluation (02/02/19) The patient does not meet criteria for a specified degree of malnutrition at this time. Will re-evaluate at follow-up as appropriate. Nutrition Prescription (Diet Order): Regular diet (chopped, nectar) Estimated Nutritional Needs: 8752-1700 calories/day (18-22 kcal/kg CBW) 66-100 g protein/day (1-1.5 g pro/kg CBW) Diet Adequacy: Not meeting calorie needs, Not meeting protein needs Diet Education Needs Assessment: Diet education not indicated, patient on temporary/transition diet. Nutrition Care Level: Mod Nutrition Diagnosis: Inadequate energy and protein intake related with AMS and current medical status as evidenced by poor intake currently and not meeting needs. Goal: Patient will meet 75-100% of estimated needs by follow up Progress: Not progressing Interventions: Texture, fluid, and fiber modified diet, Commercial food Monitoring/Evaluation: Total energy intake, Total protein intake, Modified diet, Supplement Signed: Krys Mendoza MS, LD, RD
--- NOTE | 2019-02-09 18:54 | Progress Note ---
DATE: 02/09/2019 Cardiology Progress Note SUBJECTIVE: No major events overnight. His respiratory status continues to improve, but remains on BiPAP. OBJECTIVE: VITAL SIGNS: Temperature afebrile, pulse 96, respiratory rate 22, blood pressure 114/61, saturating 96% on 40% BiPAP. GENERAL: Elderly man, in no acute distress, on BiPAP. CARDIOVASCULAR: Regular rate and rhythm. No murmurs, rubs, or gallops. LUNGS: Coarse breath sounds anteriorly. No rales. ABDOMEN: Soft, nontender, nondistended. No masses. NEURO AND PSYCH: Confused, alert, awake. CARDIOVASCULAR MEDICATIONS: Reviewed. LABORATORY DATA: Reviewed. TELEMETRY DATA: Reviewed, shows normal sinus rhythm. ASSESSMENT: 1. Acute hypoxemic respiratory failure. 2. Atrial fibrillation with rapid ventricular response, currently in sinus rhythm. 3. Altered mental status. 4. Pneumonia. 5. Hypothyroidism. 6. Hypertension. 7. Hyperlipidemia. 8. Anemia. RECOMMENDATIONS: Continue current cardiovascular medications including Eliquis and metoprolol 50 mg b.i.d. and amiodarone 200 mg daily. Thank you for this consult. We will continue to follow. MD ROD Ngo/ANGELES /[id number]
[2019-02-09] MEDS: FINASTERIDE 5 MG TAB PO SCH (21:26)
[2019-02-09] MEDS: TAMSULOSIN HCL 0.4 MG CAP PO SCH (21:26)
[2019-02-09] MEDS: BUSPIRONE HCL 5 MG TAB PO PRN (23:29)
[2019-02-10] VITALS (28 sets, daily range): BP systolic 81–141; BP diastolic 49–130
[2019-02-10] MEDS: MEROPENEM 500MG/ NS 50ML 50 ML IV SCH ×4 (01:09→18:49)
[2019-02-10] MEDS: ALBUTEROL SULF 0.083% NEB SOLN 3 ML NEB NEB SCH ×2 (02:30→07:20)
[2019-02-10] MEDS: IPRATROPIUM BROMIDE 0.02% 2.5 ML NEB NEB SCH ×4 (02:30→19:40)
[2019-02-10] MEDS ORDERED: FLUCONAZOLE 100 MG/NS 50 ML 50 ML IV SCH (04:00)
[2019-02-10] MEDS: LEVOTHYROXINE SODIUM 88 MCG TAB PO SCH (05:07)
[2019-02-10 05:10] LABS: BASOPHILS % 0.2 % (0.0-1.0); HEMATOCRIT 39.4 % (38.2-49.6); HEMOGLOBIN 11.9 g/dL (14.0-18.0); LYMPHOCYTES # (AUTO) 0.8 (1.0-3.2); MEAN CORPUSCULAR HEMOGLOBIN 26.2 pg (28-32); MEAN CORPUSCULAR HGB CONC 30.2 g/dL (31-35); MEAN CORPUSCULAR VOLUME 86.8 fL (81-99); MONOCYTES # (AUTO) 2.5 (0.2-0.8); MONOCYTES % 9.3 % (4.4-11.3); NEUTROPHILS # (AUTO) 22.9 (2.1-6.9); NEUTROPHILS % 86.4 % (38.7-80.0); PLATELET COUNT 213 x10e3/uL (140-360); RED BLOOD COUNT 4.54 x10e6/uL (4.3-5.7); RED CELL DISTRIBUTION WIDTH 20.3 % (11.7-14.4)
[2019-02-10 05:36] LABS: ALANINE AMINOTRANSFERASE 26 IU/L (0-55); ALBUMIN 2.4 g/dL (3.5-5.0); ALBUMIN/GLOBULIN RATIO 0.7 (0.8-2.0); ALKALINE PHOSPHATASE 91 IU/L (40-150); ANION GAP 11.6 mmol/L (8-16); BLOOD UREA NITROGEN 29 mg/dL (7-26); BUN/CREATININE RATIO 33 (6-25); CALCIUM 8.8 mg/dL (8.4-10.2); CARBON DIOXIDE 36 mmol/L (22-29); CHLORIDE 100 mmol/L (98-107); CREATININE, SERUM 0.88 mg/dL (0.72-1.25); EST GLOMERULAR FILTRATION RATE > 60 ML/MIN (60-); GLUCOSE 126 mg/dL (74-118); POTASSIUM 3.6 mmol/L (3.5-5.1); SODIUM 144 mmol/L (136-145)
[2019-02-10] MEDS: METOPROLOL TARTRATE INJ 1 MG/ML VIAL IV PRN ×2 (06:24→10:20)
[2019-02-10] MEDS: FLUCONAZOLE 100 MG/NS 50 ML 50 ML IV SCH (06:24)
[2019-02-10 07:28] LABS: HYPOCHROMASIA SLIGHT; LYMPHOCYTES % (MANUAL) 1 % (19-48); MONOCYTES % (MANUAL) 10 % (3.4-9.0); NEUTROPHILS % (MANUAL) 87 % (40-74)
[2019-02-10 07:29] LABS: PLATELET ESTIMATE ADEQUATE; PLATELET MORPHOLOGY COMMENT NORMAL; RBC MORPHOLOGY COMMENT NORMAL
[2019-02-10] MEDS: APIXABAN 5 MG TABLET PO SCH ×2 (09:19→17:33)
[2019-02-10] MEDS: CILOSTAZOL 100 MG TAB PO SCH ×2 (09:19→17:33)
[2019-02-10] MEDS: AMIODARONE HCL 200 MG TAB PO SCH (09:19)
[2019-02-10] MEDS: FUROSEMIDE INJ 10 MG/ML 4 ML VIAL IV SCH ×2 (09:19→17:00)
[2019-02-10] MEDS: ASPIRIN 81 MG ENTERIC COATED PO SCH (09:19)
[2019-02-10] MEDS: METOPROLOL SUCCINATE 50 MG TAB XL PO SCH ×2 (09:19→17:00)
[2019-02-10] MEDS: TRAMADOL HCL 50 MG TAB PO SCH ×3 (09:20→21:15)
--- NOTE | 2019-02-10 09:26 | NUR ---
patient heart rate increased to 150's after am neb tx given. ekg completed stated stach with pac's. sats 94% bp stable at 119/99. Dr. Lanier at bedside and updated him with patient status. MD aware of am labs. plan of care updated. new orders received.
--- NOTE | 2019-02-10 09:27 | NUR ---
patient declined breakfast. states he is not hungry. able to accept am medications whole and swallow thickened orange juice without incident.
--- NOTE | 2019-02-10 10:09 | NUR ---
bipap placed back on patient as he continues to report sob. pt moaning and restless this morning. hr 150's. with bipap on and administered metoprolol ivp (Dr. Cartagena) at bedside updated. new orders received. hr 103, bp 95/70, rr22 sats 96%. on bipap will continue to monitor.
[2019-02-10] MEDS ORDERED: AMIODARONE HCL 900 MG in DEXTROSE 5% 500ML 500 ML IV ONE (10:15)
[2019-02-10] MEDS ORDERED: AMIODARONE HCL 150 MG in DEXTROSE 5% 100ML 100 ML IV ONE (10:15)
--- NOTE | 2019-02-10 10:20 | Diagnostic Imaging Report ---
Examination: Single AP view of the chest. COMPARISON: 02/08/2019 INDICATION: Fever DISCUSSION: Left upper extremity PICC is unchanged in appearance. Persistent partial right middle lobe collapse. No new consolidations. Left lung is clear. Trace bilateral pleural effusions. Stable cardiomediastinal contour without overt pulmonary edema. Emphysematous and fibrotic changes right greater than left, unchanged. IMPRESSION: Stable chest relative to 02/08/2019. Persistent findings include partial right middle lobe collapse and multifocal airspace disease in the right lung. Signed by: Dr. Zia Guerra M.D. on 02/10/2019 10:17 AM
[2019-02-10] MEDS: BUSPIRONE HCL 5 MG TAB PO PRN (11:25)
[2019-02-10] MEDS: VANCOMYCIN 1GM/NS 250 ML 250 ML IV SCH (12:11)
[2019-02-10] MEDS ORDERED: SODIUM CHLORIDE 0.9% 250ML 250 ML ONE (12:12)
--- NOTE | 2019-02-10 12:45 | NUR ---
ST NOTE: Pt returned to bipap and can not tolerate NG tube for Speech Therapy. Speech Therapy to resume when pt can remain off of bipap for 20 minutes. Will continue to follow. Handoff to AUGUSTO Vu
--- NOTE | 2019-02-10 14:58 | NUR ---
Skin screen completed today. Stage I to sacrum, yeast to perineum and blachable redness to heels.
--- NOTE | 2019-02-10 15:20 | Progress Note ---
DATE: 02/10/2019 Cardiology Progress Note SUBJECTIVE: Went into RVR again this morning, heart rate in the 140s and 150s. Remains on BiPAP. OBJECTIVE: VITAL SIGNS: Temperature afebrile, pulse 140, respiratory rate 22, blood pressure 119/99, and saturating 100% on 6 L BiPAP. GENERAL: Elderly man, in no acute distress. CARDIOVASCULAR: Tachycardic, irregular. No murmurs, rubs, or gallops. LUNGS: Coarse breath sounds bilaterally. ABDOMEN: Soft, nontender, and nondistended. NEURO AND PSYCH: The patient is disoriented and lethargic. INPATIENT MEDICATIONS: Reviewed. LABORATORY DATA: Reviewed. Notable for increasing white count from 13 to 26 today. IMAGING DATA: Reviewed. Chest x-ray shows stable findings from before, including multifocal airspace opacities. TELEMETRY DATA: Reviewed, shows AFib with RVR starting early this morning. ASSESSMENT: 1. Acute hypoxemic respiratory failure, multifocal pneumonia. 2. Atrial fibrillation with rapid ventricular response. 3. Altered mental status. 4. Hypothyroidism. 5. Hypertension. 6. Hyperlipidemia. 7. Anemia. RECOMMENDATIONS: Continue oral amiodarone. Continue Eliquis. We will put the patient back on IV amiodarone as he went back into AFib with RVR. We will add a beta-delia if blood pressure tolerates, if heart rates remain high despite being on amiodarone drip. Thank you for this consult. We will continue to follow. MD ROD Ngo/ANGELES /[id number]
[2019-02-10 18:17] LABS: CLARITY,URINE SL CLOUDY (CLEAR); COLOR,URINE YELLOW (YELLOW)
[2019-02-10 18:18] LABS: BILIRUBIN,URINE NEGATIVE (NEGATIVE); KETONES,URINE TRACE (NEGATIVE); LEUKOCYTE ESTERASE ,URINE TRACE (NEGATIVE); NITRITE,URINE NEGATIVE (NEGATIVE); PROTEIN,URINE DIPSTICK 2+ (NEGATIVE); URINE UROBILINOGEN 0.2 mg/dL (0.2 - 1)
[2019-02-10 18:31] LABS: BACTERIA,URINE MANY /HPF
[2019-02-10 18:32] LABS: AMORPHOUS SEDIMENT,URINE MODERATE (FEW); EPITHELIAL CELLS,URINE MANY /LPF; YEAST,URINE MODERATE
[2019-02-10] MEDS: FINASTERIDE 5 MG TAB PO SCH (21:15)
[2019-02-10] MEDS: TAMSULOSIN HCL 0.4 MG CAP PO SCH (21:15)
[2019-02-11] VITALS (35 sets, daily range): BP systolic 65–135; BP diastolic 35–97
[2019-02-11] MEDS: VANCOMYCIN 1GM/NS 250 ML 250 ML IV SCH ×2 (00:15→10:15)
[2019-02-11] MEDS: MEROPENEM 500MG/ NS 50ML 50 ML IV SCH ×2 (00:30→06:00)
[2019-02-11] MEDS: METOPROLOL TARTRATE INJ 1 MG/ML VIAL IV PRN ×2 (02:11→17:02)
[2019-02-11] MEDS: IPRATROPIUM BROMIDE 0.02% 2.5 ML NEB NEB SCH ×4 (02:15→19:17)
[2019-02-11] MEDS ORDERED: ALTEPLASE RECOMBINANT 2 MG/2 ML VIAL ONE (05:04)
[2019-02-11] MEDS: ALTEPLASE RECOMBINANT 2 MG/2 ML VIAL IV PRN ×2 (05:15→05:20)
[2019-02-11 05:28] LABS: BASOPHILS % 0.1 % (0.0-1.0); HEMATOCRIT 34.2 % (38.2-49.6); HEMOGLOBIN 10.2 g/dL (14.0-18.0); LYMPHOCYTES # (AUTO) 0.7 (1.0-3.2); LYMPHOCYTES % 2.7 % (18.0-39.1); MEAN CORPUSCULAR HEMOGLOBIN 25.8 pg (28-32); MEAN CORPUSCULAR HGB CONC 29.8 g/dL (31-35); MEAN CORPUSCULAR VOLUME 86.4 fL (81-99); MONOCYTES # (AUTO) 2.1 (0.2-0.8); MONOCYTES % 7.6 % (4.4-11.3); NEUTROPHILS % 88.5 % (38.7-80.0); PLATELET COUNT 197 x10e3/uL (140-360); RED BLOOD COUNT 3.96 x10e6/uL (4.3-5.7); RED CELL DISTRIBUTION WIDTH 20.5 % (11.7-14.4)
[2019-02-11] MEDS: FLUCONAZOLE 100 MG/NS 50 ML 50 ML IV SCH (06:00)
[2019-02-11 06:12] LABS: ALANINE AMINOTRANSFERASE 20 IU/L (0-55); ALBUMIN/GLOBULIN RATIO 0.6 (0.8-2.0); ALKALINE PHOSPHATASE 84 IU/L (40-150); ANION GAP 9.1 mmol/L (8-16); BLOOD UREA NITROGEN 34 mg/dL (7-26); BUN/CREATININE RATIO 37 (6-25); CALCIUM 8.4 mg/dL (8.4-10.2); CARBON DIOXIDE 36 mmol/L (22-29); CHLORIDE 104 mmol/L (98-107); CREATININE, SERUM 0.93 mg/dL (0.72-1.25); EST GLOMERULAR FILTRATION RATE > 60 ML/MIN (60-); GLUCOSE 146 mg/dL (74-118); MAGNESIUM 1.9 MG/DL (1.3-2.1); PHOSPHORUS 1.9 MG/DL (2.3-4.7); POTASSIUM 3.1 mmol/L (3.5-5.1); SODIUM 146 mmol/L (136-145)
[2019-02-11] MEDS: TRAMADOL HCL 50 MG TAB PO SCH (09:00)
[2019-02-11] MEDS: FUROSEMIDE INJ 10 MG/ML 4 ML VIAL IV SCH ×2 (09:00→16:26)
[2019-02-11] MEDS: METOPROLOL SUCCINATE 50 MG TAB XL PO SCH ×2 (09:00→16:27)
[2019-02-11] MEDS: ASPIRIN 81 MG ENTERIC COATED PO SCH (10:14)
[2019-02-11] MEDS: APIXABAN 5 MG TABLET PO SCH ×2 (10:14→16:26)
[2019-02-11] MEDS: AMIODARONE HCL 200 MG TAB PO SCH (10:14)
[2019-02-11] MEDS: CILOSTAZOL 100 MG TAB PO SCH ×2 (10:14→16:26)
[2019-02-11] MEDS: BALSAM PERU/CASTOR OIL 60 GM OINT...G. TP SCH (10:15)
[2019-02-11] MEDS: POTASSIUM CHLORIDE 20 MEQ TAB CR PO PRN (10:15)
[2019-02-11] MEDS: BUSPIRONE HCL 5 MG TAB PO PRN (10:19)
[2019-02-11] MEDS: LEVOTHYROXINE SODIUM 88 MCG TAB PO SCH (10:19)
--- NOTE | 2019-02-11 16:14 | NUR ---
Follow-up Note RD Recommendation(s) for Physician: - Continue regular diet as ordered; diet texture per SLEEVE WHEEL MAKER - Rec Ensure Enlive/ Ensure Pudding BID w meals to promote PO intake - If PO continues to be poor, rec to initiate continuous TF of Osmolite 1.2 @60mL/hr (1728kcal, 80g protein,1180mL water) to meet nutrition needs. Plan of Care: RD following, monitoring for tolerance and adequacy, ONS rec Nutrition reason for involvement: F/u RD Assessment 02/11: Pt was discussed during AM rounds. Per RN, pt continued to have poor appetite and only drank fluids. Pt ate small amount of Ensure Pudding today. RN requested for [place] Ensure for pt as pt was asking for strawberry drinks. Order has been placed. SLEEVE WHEEL MAKER for therapy. Pt has had poor meal intake since admission. RD rec to initiate EN via PEG for fish processing supervisor nutrition. Communicated RD rec with RN. Will continue to monitor and follow. 02/09: Visited pt in the room. Unable to obtain hx due to confusion. SLEEVE WHEEL MAKER following for therapy. Per AUGUSTO Garcia, pt was not eating much but drank a lot of fluids. No GI issue reported. Will continue to monitor and follow. 01/26: Pt was transferred to ICU yesterday due to hypoxia. Unable to obtain info as pt was on BiPAP. Per AUGUSTO Hammond, PO intake was poor this AM that pt only drank some juices. No GI complains reported. No ONS was ordered since we last saw pt on 02/02. Order for Ensure pudding has been placed. If pt continued to have poor PO intake, please consult. Will continue to monitor and follow. 02/02: 88 YOM admitted for PNA with AMS and general weakness, pt seen today for LOS. Pt discussed during am rounds, continues with fluctuating mentation- oriented today. 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 Pt states UBW of 150# within the past few months, no significant change noted. Pt denies any GI distress. No family present at time of visit. Discussed supplements, pt receptive to Ensure pudding- recommend TID with meals. SLEEVE WHEEL MAKER following, recommended nectar thick liquids. Encouraged po intake, pt verbalized understanding. Will monitor and continue to follow. Principal Problems/Diagnoses: AMS, PNA with hypoxia, generalized weakness PMH: CVA, pancreatitis, HTN GI: abdomen soft, non-tender, round, LBM- 02/06 Skin: WDL Labs: 02/11: Na 146 H, K 3.1 L, BUN 34 H, Glucose 146 H, Phos 1.9 L 02/09: Glucose 123 H, Ca 8.3 L 02/04: Glucose 142 H, Ca 8.2 L 02/01: Na 149, K 3.7, Gluc 144 Meds: synthroid, K-dur, eliquis Ht: 60.7 in Wt: 146.38 lb; 125.06lb; 119.44lb BMI: 27.9 IBW: 110 lb Malnutrition Evaluation (02/02/19) The patient does not meet criteria for a specified degree of malnutrition at this time. Will re-evaluate at follow-up as appropriate. Nutrition Prescription (Diet Order): Regular diet (chopped, nectar) Estimated Nutritional Needs: 1375 - 1925 calories/day (25-35 kcal/kg CBW) 55 - 83 g protein/day (1-1.5 g pro/kg CBW) Diet Adequacy: Not meeting calorie needs, Not meeting protein needs Diet Education Needs Assessment: Diet education not indicated due to AMS. Nutrition Care Level: Mod Nutrition Diagnosis: Inadequate energy and protein intake related with AMS and current medical status as evidenced by poor intake currently and not meeting needs. Goal: Patient will meet 75-100% of estimated needs by follow up Progress: Not progressing Interventions: -Oral nutrition supplements -Liberalize diet -Consider EN for fish processing supervisor nutrition Monitoring/Evaluation: Total energy intake, Total protein intake, Modified diet, Supplement Signed: Krys Mendoza, MS, LD, RD
[2019-02-11] MEDS ORDERED: LORAZEPAM 0.5 MG TAB PO PRN (16:30)
--- NOTE | 2019-02-11 17:11 | NUR ---
patient daughter and family at bedside. patient was told his unexectantly. pt is shaking, anxious. heart rhythm afib rvr hr 160's. administered ativan po and metoprolol iv. hr now 102 . rr 29bpm, 91% sats 4L nc. bp 104/65. will continue to monitor. updated Dr. Rowell with patient status and family updates.
[2019-02-11] MEDS ORDERED: LORAZEPAM INJ 2 MG/ML VIAL IV PRN (19:00)
--- NOTE | 2019-02-11 19:21 | Progress Note ---
DATE: 02/11/2019 Cardiology Progress Note SUBJECTIVE: No major events overnight. Remains in sinus rhythm. OBJECTIVE: VITAL SIGNS: Temperature afebrile, pulse 82, respiratory rate 20, blood pressure 119/53, and saturating 98% on 4 L nasal cannula. GENERAL: Elderly white man, in no acute distress. CARDIOVASCULAR: Regular rate and rhythm. No murmurs, rubs, or gallops. LUNGS: Clear to auscultation bilaterally. Coarse breath sounds at the bases. ABDOMEN: Soft, nontender, and nondistended. NEURO AND PSYCH: Disoriented, lethargic. INPATIENT MEDICATIONS: Reviewed. LABORATORY DATA: Reviewed. IMAGING DATA: Reviewed. TELEMETRY DATA: Reviewed. Converted back to sinus yesterday. Remains in sinus rhythm today. ASSESSMENT: 1. Acute hypoxemic respiratory failure, multifocal pneumonia. 2. Atrial fibrillation with rapid ventricular response. 3. Altered mental status. 4. Hypothyroidism. 5. Hypertension. 6. Hyperlipidemia. 7. Anemia. RECOMMENDATIONS: Continue oral amiodarone and Eliquis. We will up titrate metoprolol from 50 mg to 75 mg. Thank you for this consult. We will continue to follow. MD ROD Ngo/ANGELES /[id number]
[2019-02-11] MEDS: FINASTERIDE 5 MG TAB PO SCH (21:55)
[2019-02-11] MEDS: TAMSULOSIN HCL 0.4 MG CAP PO SCH (21:55)
[2019-02-11] MEDS: ACETAMINOPHEN 325 MG TAB PO PRN (21:55)
[2019-02-12] VITALS (33 sets, daily range): BP systolic 71–123; BP diastolic 38–92
[2019-02-12] MEDS ORDERED: SODIUM CHLORIDE 0.9% 1000ML 1,000 ML ONE (00:48)
[2019-02-12] MEDS: IPRATROPIUM BROMIDE 0.02% 2.5 ML NEB NEB SCH ×4 (01:05→19:20)
[2019-02-12] MEDS: METOPROLOL TARTRATE INJ 1 MG/ML VIAL IV PRN (04:14)
[2019-02-12 04:50] LABS: BASOPHILS % 0.1 % (0.0-1.0); EOSINOPHILS % 0.2 % (0.0-6.0); HEMATOCRIT 30.5 % (38.2-49.6); HEMOGLOBIN 9.2 g/dL (14.0-18.0); LYMPHOCYTES % 5.9 % (18.0-39.1); MEAN CORPUSCULAR HEMOGLOBIN 26.2 pg (28-32); MEAN CORPUSCULAR HGB CONC 30.2 g/dL (31-35); MEAN CORPUSCULAR VOLUME 86.9 fL (81-99); MONOCYTES # (AUTO) 1.4 (0.2-0.8); MONOCYTES % 8.4 % (4.4-11.3); NEUTROPHILS % 84.7 % (38.7-80.0); PLATELET COUNT 166 x10e3/uL (140-360); RED BLOOD COUNT 3.51 x10e6/uL (4.3-5.7); RED CELL DISTRIBUTION WIDTH 20.6 % (11.7-14.4)
[2019-02-12 05:09] LABS: ALANINE AMINOTRANSFERASE 18 IU/L (0-55); ALBUMIN 1.7 g/dL (3.5-5.0); ALBUMIN/GLOBULIN RATIO 0.6 (0.8-2.0); ALKALINE PHOSPHATASE 79 IU/L (40-150); ANION GAP 8.3 mmol/L (8-16); BLOOD UREA NITROGEN 39 mg/dL (7-26); BUN/CREATININE RATIO 41 (6-25); CARBON DIOXIDE 34 mmol/L (22-29); CHLORIDE 112 mmol/L (98-107); CREATININE, SERUM 0.95 mg/dL (0.72-1.25); EST GLOMERULAR FILTRATION RATE > 60 ML/MIN (60-); GLUCOSE 123 mg/dL (74-118); MAGNESIUM 1.7 MG/DL (1.3-2.1); POTASSIUM 3.3 mmol/L (3.5-5.1); SODIUM 151 mmol/L (136-145)
[2019-02-12] MEDS ORDERED: DIGOXIN INJ 0.25 MG/ML 2 ML AMP ONE (05:44)
[2019-02-12] MEDS ORDERED: DIGOXIN INJ 0.25 MG/ML 2 ML AMP IV ONE (05:45)
[2019-02-12] MEDS ORDERED: AMIODARONE HCL 150 MG/100 ML BAG IV ONE (06:20)
[2019-02-12] MEDS ORDERED: AMIODARONE 900MG 500 ML IV ONE (06:20)
[2019-02-12] MEDS: AMIODARONE HCL 900 MG in DEXTROSE 5% 500ML 500 ML IV PRN ×2 (06:30→12:30)
--- NOTE | 2019-02-12 08:20 | NUR ---
ASSESSMENT: Spiritual concern Pt grieving 's recent . Pt states his of 65 years last Friday. Pt states, "She is in a better place and is not suffering anymore." Pt states he wants to "get better" however if he dies his "daughter and grandsons will miss me." Intervention: Provided calming pastoral presence. Facilitated storytelling. Provided prayer. Outcome: Pt expressed appreciation for the visit. Will follow as able. DILLAN TRISTAN Precision Thread Grinder Operator Spiritual Care Department O: [phone] Pager: [phone] ([phone] number calling from)
[2019-02-12] MEDS: ASPIRIN 81 MG ENTERIC COATED PO SCH (08:44)
[2019-02-12] MEDS: LEVOTHYROXINE SODIUM 88 MCG TAB PO SCH (08:44)
[2019-02-12] MEDS: POTASSIUM CHLORIDE 20 MEQ TAB CR PO SCH (08:45)
[2019-02-12] MEDS: AMIODARONE HCL 200 MG TAB PO SCH (08:45)
[2019-02-12] MEDS: APIXABAN 5 MG TABLET PO SCH ×2 (08:45→17:37)
[2019-02-12] MEDS: CILOSTAZOL 100 MG TAB PO SCH ×2 (08:45→17:37)
[2019-02-12] MEDS: BUSPIRONE HCL 5 MG TAB PO PRN (08:46)
[2019-02-12] MEDS: BALSAM PERU/CASTOR OIL 60 GM OINT...G. TP SCH (08:46)
[2019-02-12] MEDS: METOPROLOL SUCCINATE 50 MG TAB XL PO SCH ×2 (08:46→17:38)
[2019-02-12] MEDS: POTASSIUM CHLORIDE 20 MEQ TAB CR PO PRN (08:49)
[2019-02-12] MEDS ORDERED: GUAIFENESIN 200 MG/10 ML UDC PO PRN (09:30)
[2019-02-12 09:41] LABS: ANISOCYTOSIS SLIGHT; EOSINOPHILS % (MANUAL) 1 % (0-7); LYMPHOCYTES % (MANUAL) 2 % (19-48); MONOCYTES % (MANUAL) 7 % (3.4-9.0); NEUTROPHILS % (MANUAL) 90 % (40-74); RBC MORPHOLOGY COMMENT NORMAL
[2019-02-12 09:43] LABS: HYPOCHROMASIA SLIGHT; PLATELET ESTIMATE ADEQUATE
[2019-02-12 09:45] LABS: PLATELET MORPHOLOGY COMMENT NORMAL
--- NOTE | 2019-02-12 11:43 | Diagnostic Imaging Report ---
Examination: AP view of the chest. COMPARISON: Chest radiograph 02/10/2019. INDICATION: Shortness of breath. DISCUSSION: Left upper extremity PICC with tip terminating at the brachiocephalic confluence. Persistent partial right middle lobe collapse and patchy opacities in the right lung. Left lung is clear. 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 Trace right pleural effusions. No evidence of pneumothorax. Stable cardiomediastinal silhouette. No acute bony findings. IMPRESSION: Similar appearance of partial right middle lobe collapse and multifocal airspace disease in the right lung. Signed by: Dr. Ivan Horton MD on 02/12/2019 11:39 AM
[2019-02-12] MEDS: FUROSEMIDE 40 MG TAB PO SCH (12:30)
--- NOTE | 2019-02-12 16:02 | NUR ---
PT WAS NOTIFIED LAST EVENING BY HIS DTR THAT HIS JUST PT HAD TO BE PLACED BACK ON IV AMMIODARONE FOR A FIB RVR [facility] EVAL PENDING
--- NOTE | 2019-02-12 18:19 | NUR ---
patient just woke up after a 3hr nap with bipap on. pt was becoming more confused and talking to nobody in room. yelling for family who is not here. since patient woke up, he is coherent and calm. family is now at bedside. pt had large brown liquid bowel movement. applied cream as indicated to skin. lotion applied to arms and back. patient back in sinus rhythm around 1300. amiodarone gtt continues at protocol rate.
--- NOTE | 2019-02-12 18:48 | Progress Note ---
DATE: 02/12/2019 Cardiology Progress Note SUBJECTIVE: Went back into atrial fibrillation yesterday afternoon. Heart rate is now little better controlled. OBJECTIVE: VITAL SIGNS: Temperature is afebrile, pulse 99, respiratory rate 22, blood pressure 120/91, and saturating 96% on 4 L nasal cannula. GENERAL: Elderly white man, in no acute distress. CARDIOVASCULAR: Irregular rate and rhythm. No murmurs, rubs, or gallops. LUNGS: Clear to auscultation anteriorly. ABDOMEN: Soft, nontender, and nondistended. NEURO AND PSYCH: Alert and oriented. The patient is in some distress as he just found out yesterday that years suddenly. INPATIENT MEDICATIONS: Reviewed. LABORATORY DATA: Reviewed. IMAGING DATA: Reviewed. TELEMETRY DATA: Reviewed, shows atrial fibrillation with RVR. ASSESSMENT: 1. Acute hypoxemic respiratory failure with multifocal pneumonia. 2. Atrial fibrillation with rapid ventricular response. 3. Altered mental status. 4. Hypothyroidism. 5. Hypertension. 6. Hyperlipidemia. 7. Anemia. RECOMMENDATIONS: Continue oral amiodarone and Eliquis. Restarted on IV amiodarone given AFib with RVR. Continue metoprolol 75 mg b.i.d. We will up titrate as needed to achieve better rate control. Thank you for this consult. We will continue to follow. MD ROD Ngo/ANGELES /[id number]
[2019-02-12] MEDS: TAMSULOSIN HCL 0.4 MG CAP PO SCH (21:38)
[2019-02-12] MEDS: FINASTERIDE 5 MG TAB PO SCH (21:38)
[2019-02-13] VITALS (28 sets, daily range): BP systolic 80–159; BP diastolic 50–77
[2019-02-13] MEDS: IPRATROPIUM BROMIDE 0.02% 2.5 ML NEB NEB SCH ×4 (01:10→18:42)
[2019-02-13 04:59] LABS: BASOPHILS % 0.1 % (0.0-1.0); EOSINOPHILS # (AUTO) 0.1 (0.0-0.4); EOSINOPHILS % 0.8 % (0.0-6.0); HEMATOCRIT 30.9 % (38.2-49.6); HEMOGLOBIN 9.3 g/dL (14.0-18.0); LYMPHOCYTES # (AUTO) 0.7 (1.0-3.2); LYMPHOCYTES % 4.6 % (18.0-39.1); MEAN CORPUSCULAR HEMOGLOBIN 26.4 pg (28-32); MEAN CORPUSCULAR HGB CONC 30.1 g/dL (31-35); MEAN CORPUSCULAR VOLUME 87.8 fL (81-99); MONOCYTES # (AUTO) 0.9 (0.2-0.8); MONOCYTES % 5.7 % (4.4-11.3); NEUTROPHILS # (AUTO) 13.9 (2.1-6.9); NEUTROPHILS % 87.9 % (38.7-80.0); PLATELET COUNT 189 x10e3/uL (140-360); RED BLOOD COUNT 3.52 x10e6/uL (4.3-5.7); RED CELL DISTRIBUTION WIDTH 20.3 % (11.7-14.4)
[2019-02-13 05:24] LABS: ALANINE AMINOTRANSFERASE 21 IU/L (0-55); ALBUMIN 1.7 g/dL (3.5-5.0); ALBUMIN/GLOBULIN RATIO 0.5 (0.8-2.0); ALKALINE PHOSPHATASE 103 IU/L (40-150); ANION GAP 10.1 mmol/L (8-16); BLOOD UREA NITROGEN 38 mg/dL (7-26); BUN/CREATININE RATIO 42 (6-25); CALCIUM 8.5 mg/dL (8.4-10.2); CARBON DIOXIDE 33 mmol/L (22-29); CHLORIDE 111 mmol/L (98-107); EST GLOMERULAR FILTRATION RATE > 60 ML/MIN (60-); GLUCOSE 147 mg/dL (74-118); MAGNESIUM 1.7 MG/DL (1.3-2.1); SODIUM 150 mmol/L (136-145)
[2019-02-13 05:26] LABS: POTASSIUM 4.1 mmol/L (3.5-5.1)
--- NOTE | 2019-02-13 06:56 | NUR ---
Dr Rocha to bedside; stated patient to remain in ICU. Bedside report rec'd, patient resting, confused.
--- NOTE | 2019-02-13 07:45 | Progress Note ---
DATE: 02/13/2019 SUBJECTIVE: This is an 88-year-old male with multiple medical problems, admitted to the ICU with sepsis. The patient was hypertensive, was on pressors and has been taken out. The patient also had acute hypoxemia with respiratory failure. The patient also with history of atrial fibrillation and altered mental status. OBJECTIVE: GENERAL: Currently, the patient is alert and oriented x1, confused. VITAL SIGNS: Temperature is 98.1, pulse of 98, respiration of 22, blood pressure is 159/67, pulse oximetry 95% and he is on 6 L of nasal cannula. HEENT: Normocephalic, atraumatic. Pupils are reactive to light and accommodation. CVS: S1, S2 regular. ABDOMEN: Nontender and nondistended. EXTREMITIES: No clubbing. No cyanosis and/or no edema. MEDICATIONS: The patient is on albuterol Atrovent treatments, tamsulosin 0.5, finasteride 5 mg, metoprolol 75 mg, Eliquis 5 mg, Pletal 100 mg, Lasix 40 mg, amiodarone, which has been stopped, potassium chloride 20, and BuSpar 5. He is on amiodarone p.o., levothyroxine 88, and losartan 25 mg b.i.d. The patient is also on p.r.n. medications including lorazepam and Klonopin. LABORATORY VALUES: Today, the patient's white count is 15,000, down from 16,000 yesterday, hemoglobin of 9.3, stable at 9.2 from yesterday. Platelet count has been normal. Neutrophil count, there is left shift present. Chemistries show sodium of 150, potassium 4.1, BUN is 33, and creatinine of 0.9. The liver enzymes have been trending normal. Toxicology, vancomycin trough was done on was 12.5. Coags are normal. Urine shows urinary tract infection and fluid tap was done on the . MICROBIOLOGY: Urine culture showed yeast species, Gisella albicans, and also sputum culture showed Gisella and Pseudomonas. The patient's the rest of the growths have been so far negative. ASSESSMENT: 1. Acute hypoxic respiratory failure. 2. Sepsis with elevated white count. 3. Atrial fibrillation with rapid ventricular response, currently in sinus rhythm. 4. Confusion or altered mental status. 5. Hyperlipidemia. 6. Hypertension. 7. Debility. 8. Pneumonia. 9. Anemia of chronic disease. 10. Urinary tract infection. PLAN: At this time the patient has been taken off his pressors. Amiodarone drip has been turned off. The patient is in sinus rhythm. We will continue with cardiac monitoring. Medications are on board. The patient's status and outlook looks still grim and poor. We will continue with current medication, further recommendation and clinical course. Multiple consultants on board including Cardiology, Pulmonology, and Infectious Disease. The patient's labs will be followed daily. Further recommendation per clinical course. We will continue to monitor the patient along with consultants and keep in the ICU at this time. MD PHILLIP Abdullahi/MODL /[id number]
[2019-02-13] MEDS: LEVOTHYROXINE SODIUM 88 MCG TAB PO SCH (08:31)
[2019-02-13] MEDS: AMIODARONE HCL 200 MG TAB PO SCH (08:52)
[2019-02-13] MEDS: ASPIRIN 81 MG ENTERIC COATED PO SCH (08:52)
[2019-02-13] MEDS: POTASSIUM CHLORIDE 20 MEQ TAB CR PO SCH (08:53)
[2019-02-13] MEDS: BALSAM PERU/CASTOR OIL 60 GM OINT...G. TP SCH (08:53)
[2019-02-13] MEDS: APIXABAN 5 MG TABLET PO SCH ×2 (08:53→16:51)
[2019-02-13] MEDS: FUROSEMIDE 40 MG TAB PO SCH (08:53)
[2019-02-13] MEDS: CILOSTAZOL 100 MG TAB PO SCH ×2 (08:53→16:51)
[2019-02-13] MEDS: METOPROLOL SUCCINATE 50 MG TAB XL PO SCH ×3 (08:54→16:52)
[2019-02-13] MEDS ORDERED: DEXTROSE 5% 1,000 ML IV ONE (12:30)
[2019-02-13] MEDS ORDERED: MEROPENEM 500MG/ NS 50ML 50 ML IV ONE (13:00)
--- NOTE | 2019-02-13 17:47 | Progress Note ---
DATE: 02/13/2019 Cardiology Progress Note SUBJECTIVE: The patient is overall feeling better. Denies any chest pain or shortness of breath. OBJECTIVE: VITAL SIGNS: Temperature is 98.8, heart rate is 105, respirations are 20, blood pressure is 112/61, and oxygen saturation is 99% on 4 L nasal cannula. GENERAL: He is a chronically ill-appearing male, lying comfortably in bed. CARDIOVASCULAR: He is tachycardic. Regular rhythm. LUNGS: Diminished breath sounds at bilateral bases. ABDOMEN: Soft, nontender, and nondistended. LABORATORY DATA: Reviewed. CARDIOVASCULAR MEDICATIONS: Reviewed. TELEMETRY: Monitoring revealed sinus tachycardia. IMPRESSION: 1. Paroxysmal atrial fibrillation. 2. Respiratory failure. 3. Multifocal pneumonia. 4. Altered mental status. 5. Hypertension. 6. Hyperlipidemia. 7. Anemia. RECOMMENDATIONS: The patient's IV amiodarone has been completed. He is currently on oral amiodarone and Eliquis for his anticoagulation needs. His blood pressure has been borderline low, so we will decrease metoprolol to 50 b.i.d. and increase as tolerated. Otherwise, continue close monitoring in the intensive care unit and telemetry monitoring. If he remains stable over the next 24 hours, he may be transferred to the IMU. DO YUAN Melo/ANGELES /[id number]
[2019-02-13] MEDS: FINASTERIDE 5 MG TAB PO SCH (20:45)
[2019-02-13] MEDS: TAMSULOSIN HCL 0.4 MG CAP PO SCH (20:45)
--- NOTE | 2019-02-13 22:38 | Progress Note ---
DATE: 02/13/2019 SUBJECTIVE: Mr. Barnes currently remains in Intensive Care Unit alert, no complaints, but remains weak. REVIEW OF SYSTEMS: HEENT: Negative. PULMONARY: Negative. CARDIAC: Negative. : Negative. I have discussed the case with his nurse, with the patient, and with Dr. Lanier. His lab data reviewed. Chart reviewed. PHYSICAL EXAMINATION: GENERAL: He is currently alert, oriented, does not seem to be in acute distress. HEENT: He does not appear icteric. Normocephalic. NECK: Supple. No JVD. No lymphadenopathy. No thyromegaly. CHEST: Clear bilateral. HEART: S1, S2. No S3, S4, murmur. ABDOMEN: Soft. Bowel sounds present. No tenderness. EXTREMITIES: No edema. SKIN: He has several superficial ecchymoses. IMPRESSION: 1. We just finished treating pneumonia and he was doing well clinically, he was found to have leukocytosis. I started antibiotics for that concern, he does not have complication from his antibiotic such as C. diff, etc., but so far, there is no diarrhea. The white count did come down to 15,000. 2. Acute hypoxemic respiratory failure clinically seems to be stable. The patient probably had aspiration pneumonia and is clinically stable. 3. Debility and weakness. The patient is at risk for recurrent aspiration pneumonia. 4. Atrial fibrillation, congestive heart failure. Cardiology is following. 5. Funguria. We will put him on Diflucan 200 mg p.o. daily. 6. We will follow with you. MD KATIE Seals/ANGELES /[id number]
[2019-02-14] VITALS (47 sets, daily range): BP systolic 76–132; BP diastolic 33–97
[2019-02-14] MEDS: IPRATROPIUM BROMIDE 0.02% 2.5 ML NEB NEB SCH ×4 (00:34→19:18)
[2019-02-14] MEDS ORDERED: SODIUM CHLORIDE 0.9% 1000ML 1,000 ML ONE (03:22)
[2019-02-14 05:17] LABS: BASOPHILS % 0.1 % (0.0-1.0); EOSINOPHILS # (AUTO) 0.2 (0.0-0.4); EOSINOPHILS % 1.5 % (0.0-6.0); HEMATOCRIT 29.9 % (38.2-49.6); HEMOGLOBIN 9.1 g/dL (14.0-18.0); LYMPHOCYTES # (AUTO) 0.9 (1.0-3.2); LYMPHOCYTES % 6.6 % (18.0-39.1); MEAN CORPUSCULAR HEMOGLOBIN 26.1 pg (28-32); MEAN CORPUSCULAR HGB CONC 30.4 g/dL (31-35); MEAN CORPUSCULAR VOLUME 85.7 fL (81-99); MONOCYTES # (AUTO) 0.9 (0.2-0.8); MONOCYTES % 6.5 % (4.4-11.3); NEUTROPHILS # (AUTO) 11.6 (2.1-6.9); NEUTROPHILS % 84.4 % (38.7-80.0); PLATELET COUNT 185 x10e3/uL (140-360); RED BLOOD COUNT 3.49 x10e6/uL (4.3-5.7); RED CELL DISTRIBUTION WIDTH 20.7 % (11.7-14.4)
[2019-02-14] MEDS ORDERED: DEXTROSE 5% 1,000 ML IV ONE (05:20)
[2019-02-14 05:40] LABS: ALANINE AMINOTRANSFERASE 20 IU/L (0-55); ALBUMIN 1.7 g/dL (3.5-5.0); ALBUMIN/GLOBULIN RATIO 0.5 (0.8-2.0); ALKALINE PHOSPHATASE 98 IU/L (40-150); ANION GAP 10.2 mmol/L (8-16); BLOOD UREA NITROGEN 28 mg/dL (7-26); BUN/CREATININE RATIO 30 (6-25); CALCIUM 8.5 mg/dL (8.4-10.2); CARBON DIOXIDE 32 mmol/L (22-29); CHLORIDE 109 mmol/L (98-107); CREATININE, SERUM 0.93 mg/dL (0.72-1.25); EST GLOMERULAR FILTRATION RATE > 60 ML/MIN (60-); GLUCOSE 121 mg/dL (74-118); MAGNESIUM 1.7 MG/DL (1.3-2.1); POTASSIUM 4.2 mmol/L (3.5-5.1); SODIUM 147 mmol/L (136-145)
--- NOTE | 2019-02-14 06:12 | Diagnostic Imaging Report ---
Examination: AP view of the chest. COMPARISON: Chest radiograph 02/12/2019. INDICATION: Pneumonia. DISCUSSION: Left upper extremity PICC with tip terminating at the brachiocephalic confluence. Persistent partial right middle lobe collapse and patchy opacities in the right lung. Left basilar atelectasis. 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 Trace right pleural effusions. No evidence of pneumothorax. Stable cardiomediastinal silhouette. No acute bony findings. IMPRESSION: Similar appearance of partial right middle lobe collapse and multifocal airspace disease in the right lung. Signed by: DR. Elliott Covington MD on 02/14/2019 6:09 AM
[2019-02-14] MEDS: DEXTROSE 5% 1,000 ML IV SCH ×2 (06:30→18:50)
[2019-02-14] MEDS: LEVOTHYROXINE SODIUM 88 MCG TAB PO SCH (07:30)
[2019-02-14] MEDS: POTASSIUM CHLORIDE 20 MEQ TAB CR PO SCH (09:00)
[2019-02-14] MEDS: APIXABAN 5 MG TABLET PO SCH ×3 (09:06→19:04)
[2019-02-14] MEDS: ASPIRIN 81 MG ENTERIC COATED PO SCH (09:06)
[2019-02-14] MEDS: FUROSEMIDE 20 MG TAB PO SCH (09:06)
[2019-02-14] MEDS: AMIODARONE HCL 200 MG TAB PO SCH (09:06)
[2019-02-14] MEDS: CILOSTAZOL 100 MG TAB PO SCH ×3 (09:06→19:04)
[2019-02-14] MEDS: METOPROLOL SUCCINATE 50 MG TAB XL PO SCH ×3 (09:07→18:30)
[2019-02-14] MEDS: BALSAM PERU/CASTOR OIL 60 GM OINT...G. TP SCH (09:07)
--- NOTE | 2019-02-14 10:11 | Progress Note ---
DATE: 02/14/2019 SUBJECTIVE: The patient is an 88-year-old in ICU, bed 191. Patient is currently deteriorating. Labs are within normal limits. The patient mental status is declining. Cognitive function has declined since last week. OBJECTIVE: VITAL SIGNS: Temperature is afebrile, pulse of 88, respiration of 30, blood pressure is 101/56, pulse oximetry 94% on room air. HEENT: Edentulous. CVS: S1, S2 normal, regular rate and rhythm. ABDOMEN: Nontender, nondistended. EXTREMITIES: No clubbing, no cyanosis, and positive for edema. LABORATORY VALUES: [place] [address] down from 15,000 yesterday, hemoglobin of 9.1, hematocrit 29.9. Chemistries; sodium 137, potassium of 4.2, BUN of 38 and creatinine 0.93, glucose is 121. Urine; coags are not done, not on anticoagulant. Microbiology; urine culture shows E species, Gisella albicans and Gram stain and Pseudomonas on Gram stain and sputum culture. ASSESSMENT: 1. Acute hypoxic respiratory failure. 2. Sepsis with elevated white count down trending, atrial fibrillation, currently in sinus rhythm, confusion secondary to sepsis, and encephalopathy. 3. Hyperlipidemia. 4. Hypertension. 5. Pneumonia, Pseudomonas cultured. 6. Urinary tract infection. PLAN: The patient has been taking all the pressors. Currently, all drips have been stopped. The patient is in sinus rhythm. However, the cognitive function has declined rapidly and the patient's status and outlook looks grim. We will discuss with primary on possible hospice consult. Further recommendation and clinical course. We will continue to monitor the patient. Lytes will be done tomorrow. Hyponatremia; the patient is getting D5W at 70 mL an hour. Sodium is better. Continue with hydration. Further recommendation per clinical course. We will continue to monitor the patient along with consultants. MD ROSY AbdullahiJ/MODL /[id number]
--- NOTE | 2019-02-14 13:55 | Progress Note ---
DATE: 02/14/2019 Cardiology Progress Note SUBJECTIVE: The patient is lethargic with altered mental status. OBJECTIVE: VITAL SIGNS: Temperature is 98.2, heart rate is 87, respirations are 22, blood pressure is 127/69, and oxygen saturation is 97% on 4 L nasal cannula. GENERAL: He is a chronically ill-appearing elderly man, sleeping comfortably. CARDIOVASCULAR: Regular rate and rhythm. LUNGS: Diminished breath sounds at bilateral bases. ABDOMEN: Soft, nondistended. CARDIOVASCULAR MEDICATIONS: Reviewed. LABORATORY DATA: Reviewed. Hemoglobin 9.1 and platelets 185. Creatinine 0.93. IMPRESSION: 1. Paroxysmal atrial fibrillation, currently in normal sinus rhythm. 2. [id number] respiratory failure. 3. Multifocal pneumonia. 4. Altered mental status. 5. Hypertension. 6. Hyperlipidemia. 7. Anemia. RECOMMENDATIONS: Continue oral amiodarone for rhythm control. Continue metoprolol 50 b.i.d. and can increase this as tolerated. His heart rate remains controlled at this point in time. Continue Eliquis for anticoagulation. We will discuss goals of care with family per primary team. DO YUAN Melo/MARISOLL /[id number]
--- NOTE | 2019-02-14 18:37 | Progress Note ---
DATE: 02/14/2019 SUBJECTIVE: Mr. Barnes remains in intensive care unit. He remains weak and debilitated. There is concern if he is aspirating, discussed with the nurse. Also discussed with Critical Care. Earlier, the patient is lethargic, to me he seems more lethargic today than yesterday. No new problems. PHYSICAL EXAMINATION: GENERAL: Lethargy. VITAL SIGNS: Stable. Afebrile. Heart rate slightly elevated in 87 to 100, respiration 22. HEENT: Not icteric. Normocephalic. NECK: Supple. No JVD. No lymphadenopathy. No thyromegaly. CHEST: Diminished breath sound at the bases. HEART: S1, S2. No S3, S4, or murmur. ABDOMEN: Soft. Bowel sounds present. No tenderness. No hepatosplenomegaly. EXTREMITIES: No edema. SKIN: No rash. LABORATORY DATA: Reviewed. Chart reviewed. Please refer to my note in the chart. Cultures were also reviewed. His labs, white count is coming down 13.6 from 13.8, hemoglobin of 9.1, hematocrit 29. Sodium 147, potassium 4.2, creatinine of 0.9 today. IMPRESSION: 1. Lethargy today and concern he may have aspirated. We will put him on cefepime, metronidazole. Cefepime 1 g q.8h, Flagyl 500 q.8. He would need swallow evaluation once he is fully alert. 2. Sepsis significantly better. 3. Congestive heart failure, seems to be stable. 4. 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 5. Debility. 6. We will follow. Discussed with the nurse. Discussed with Dr. Lanier. MD KATIE Seals/ANGELES /[id number]
[2019-02-14] MEDS: ACETAMINOPHEN 325 MG TAB PO PRN (20:05)
[2019-02-14] MEDS: FINASTERIDE 5 MG TAB PO SCH (20:05)
[2019-02-14] MEDS: TAMSULOSIN HCL 0.4 MG CAP PO SCH (20:05)
[2019-02-14] MEDS: METRONIDAZOLE 500MG/NS 100ML 100 ML IV SCH (21:35)
[2019-02-14] MEDS: LORAZEPAM INJ 2 MG/ML VIAL IV PRN (22:05)
[2019-02-14] MEDS: CEFEPIME 1GM/NS 0.9% 50 ML 50 ML IV SCH (22:15)
[2019-02-15] VITALS (24 sets, daily range): BP systolic 73–133; BP diastolic 39–79
[2019-02-15] MEDS: IPRATROPIUM BROMIDE 0.02% 2.5 ML NEB NEB SCH ×4 (01:07→19:22)
[2019-02-15] MEDS: CEFEPIME 1GM/NS 0.9% 50 ML 50 ML IV SCH ×4 (05:05→22:00)
[2019-02-15 05:12] LABS: BASOPHILS % 0.2 % (0.0-1.0); EOSINOPHILS # (AUTO) 0.3 (0.0-0.4); EOSINOPHILS % 2.8 % (0.0-6.0); HEMATOCRIT 28.5 % (38.2-49.6); HEMOGLOBIN 8.7 g/dL (14.0-18.0); LYMPHOCYTES # (AUTO) 0.8 (1.0-3.2); MEAN CORPUSCULAR HEMOGLOBIN 25.8 pg (28-32); MEAN CORPUSCULAR HGB CONC 30.5 g/dL (31-35); MEAN CORPUSCULAR VOLUME 84.6 fL (81-99); MONOCYTES # (AUTO) 0.7 (0.2-0.8); MONOCYTES % 5.6 % (4.4-11.3); NEUTROPHILS # (AUTO) 9.7 (2.1-6.9); NEUTROPHILS % 83.5 % (38.7-80.0); PLATELET COUNT 196 x10e3/uL (140-360); RED BLOOD COUNT 3.37 x10e6/uL (4.3-5.7); RED CELL DISTRIBUTION WIDTH 20.2 % (11.7-14.4)
[2019-02-15 05:33] LABS: BLOOD UREA NITROGEN 25 mg/dL (7-26); BUN/CREATININE RATIO 26 (6-25); CARBON DIOXIDE 29 mmol/L (22-29); CHLORIDE 105 mmol/L (98-107); CREATININE, SERUM 0.95 mg/dL (0.72-1.25); EST GLOMERULAR FILTRATION RATE > 60 ML/MIN (60-); GLUCOSE 124 mg/dL (74-118); SODIUM 139 mmol/L (136-145)
[2019-02-15] MEDS: METRONIDAZOLE 500MG/NS 100ML 100 ML IV SCH ×3 (06:00→22:15)
[2019-02-15] MEDS: CILOSTAZOL 100 MG TAB PO SCH ×2 (09:30→17:29)
[2019-02-15] MEDS: LEVOTHYROXINE SODIUM 88 MCG TAB PO SCH (09:30)
[2019-02-15] MEDS: ASPIRIN 81 MG ENTERIC COATED PO SCH (09:30)
[2019-02-15] MEDS: BALSAM PERU/CASTOR OIL 60 GM OINT...G. TP SCH (09:30)
[2019-02-15] MEDS: POTASSIUM CHLORIDE 20 MEQ TAB CR PO SCH (09:30)
[2019-02-15] MEDS: APIXABAN 5 MG TABLET PO SCH ×2 (09:30→17:29)
[2019-02-15] MEDS: AMIODARONE HCL 200 MG TAB PO SCH (09:30)
[2019-02-15] MEDS: FUROSEMIDE 20 MG TAB PO SCH (09:30)
[2019-02-15] MEDS: METOPROLOL SUCCINATE 50 MG TAB XL PO SCH ×2 (10:06→17:00)
[2019-02-15] MEDS: DEXTROSE 5% 1,000 ML IV SCH (12:53)
--- NOTE | 2019-02-15 13:25 | NUR ---
WOUND CARE PUP SCREEN EDMUNDO SCORE = 15 STRICT PUP ACTIVE ALTERNATING PRESSURE AIR MATTRESS BILATERAL HEEL PROTECTORS IN PLACE HOB AT 30 DEGREES PHYSICAL THERAPY WAS AT BEDSIDE VISIT,OOB STANDING AND PLACED BACK. SKIN CHECK DONE NO PRESSURE ULCER NOTED. RECOMMENDATIONS: CONTINUE CURRENT TREATMENT PLAN. Addendum: 02/15/19 at 1338 by Ree Staples RN Amended: Links added.
--- NOTE | 2019-02-15 15:27 | NUR ---
pt c/o severe back pain. asking for pain medication stronger than tylenol. notified Dr. wiggins. darlyn to give ultram for pain.
--- NOTE | 2019-02-15 15:31 | NUR ---
daughter and pt's son in law are at bedside with patient. pt alert and talking to family. family states patient is more coherent today. pt refusing PEG at this time. pt was intructed his need to consume more calories to avoid peg in future. updated attending with patient wishes.
[2019-02-15] MEDS: TRAMADOL HCL 50 MG TAB PO PRN (15:45)
[2019-02-15] MEDS: BUSPIRONE HCL 5 MG TAB PO PRN (15:45)
--- NOTE | 2019-02-15 16:03 | NUR ---
PT REMAINS IN ICU POSS ASPIRATION, HIGH FLOW [address] GONZALEZ TO ASK FOR LTAC, "NOT YET" DR CASTANEDA UPDATED
--- NOTE | 2019-02-15 19:54 | Progress Note ---
DATE: 02/15/2019 Cardiology Progress Note SUBJECTIVE: The patient is feeling better. Not eating. Denies any chest pain or shortness of breath. OBJECTIVE: VITAL SIGNS: Temperature is 98, heart rate is 88, respirations are 30, blood pressure is 117/53, and oxygen saturation 96% on 4 L nasal cannula. GENERAL: He is elderly, chronically ill-appearing man, in no apparent distress, not oriented. CARDIOVASCULAR: Regular rate and rhythm. LUNGS: Diminished breath sounds. ABDOMEN: Soft, nontender, and nondistended. NEUROLOGIC: Altered mental status. LABORATORY DATA: Reviewed. CARDIOVASCULAR MEDICATIONS: Reviewed. TELEMETRY: Monitoring revealed normal sinus rhythm. IMPRESSION: 1. Paroxysmal atrial fibrillation. 2. Acute on chronic respiratory failure. 3. Multifocal pneumonia. 4. Altered mental status. 5. Hypertension. 6. Hyperlipidemia. RECOMMENDATIONS: Continue current cardiovascular medications including amiodarone and metoprolol. His heart rate remains controlled and in normal sinus rhythm at this point in time. Continue Eliquis for anticoagulation. Landon Bedoya DO BM/MODL /[id number]
[2019-02-15] MEDS: LORAZEPAM INJ 2 MG/ML VIAL IV PRN (20:35)
[2019-02-15] MEDS: TAMSULOSIN HCL 0.4 MG CAP PO SCH (20:35)
[2019-02-15] MEDS: FINASTERIDE 5 MG TAB PO SCH (20:35)
[2019-02-16] VITALS (17 sets, daily range): BP systolic 87–126; BP diastolic 44–75
[2019-02-16] MEDS: IPRATROPIUM BROMIDE 0.02% 2.5 ML NEB NEB SCH ×4 (01:12→19:14)
[2019-02-16] MEDS: DEXTROSE 5% 1,000 ML IV SCH (02:30)
[2019-02-16] MEDS: LORAZEPAM INJ 2 MG/ML VIAL IV PRN (03:45)
[2019-02-16 05:07] LABS: BASOPHILS % 0.1 % (0.0-1.0); EOSINOPHILS # (AUTO) 0.4 (0.0-0.4); EOSINOPHILS % 4.4 % (0.0-6.0); HEMATOCRIT 25.5 % (38.2-49.6); LYMPHOCYTES # (AUTO) 0.7 (1.0-3.2); LYMPHOCYTES % 7.2 % (18.0-39.1); MEAN CORPUSCULAR HEMOGLOBIN 26.3 pg (28-32); MEAN CORPUSCULAR HGB CONC 31.4 g/dL (31-35); MEAN CORPUSCULAR VOLUME 83.9 fL (81-99); MONOCYTES # (AUTO) 0.5 (0.2-0.8); MONOCYTES % 5.8 % (4.4-11.3); NEUTROPHILS # (AUTO) 7.5 (2.1-6.9); NEUTROPHILS % 81.1 % (38.7-80.0); PLATELET COUNT 198 x10e3/uL (140-360); RED BLOOD COUNT 3.04 x10e6/uL (4.3-5.7); RED CELL DISTRIBUTION WIDTH 20.2 % (11.7-14.4)
[2019-02-16 05:28] LABS: ALANINE AMINOTRANSFERASE 25 IU/L (0-55); ALBUMIN 1.6 g/dL (3.5-5.0); ALBUMIN/GLOBULIN RATIO 0.5 (0.8-2.0); ALKALINE PHOSPHATASE 94 IU/L (40-150); ANION GAP 8.7 mmol/L (8-16); BLOOD UREA NITROGEN 23 mg/dL (7-26); BUN/CREATININE RATIO 26 (6-25); CALCIUM 7.8 mg/dL (8.4-10.2); CARBON DIOXIDE 26 mmol/L (22-29); CHLORIDE 101 mmol/L (98-107); CREATININE, SERUM 0.87 mg/dL (0.72-1.25); EST GLOMERULAR FILTRATION RATE > 60 ML/MIN (60-); GLUCOSE 112 mg/dL (74-118); MAGNESIUM 1.4 MG/DL (1.3-2.1); PHOSPHORUS 2.3 MG/DL (2.3-4.7); POTASSIUM 3.7 mmol/L (3.5-5.1); SODIUM 132 mmol/L (136-145)
[2019-02-16] MEDS: CEFEPIME 1GM/NS 0.9% 50 ML 50 ML IV SCH ×2 (05:30→14:00)
[2019-02-16] MEDS: METRONIDAZOLE 500MG/NS 100ML 100 ML IV SCH ×3 (06:10→20:54)
[2019-02-16] MEDS ORDERED: SODIUM CHLORIDE 0.9% 1000ML 1,000 ML IV SCH (06:30)
[2019-02-16] MEDS: BALSAM PERU/CASTOR OIL 60 GM OINT...G. TP SCH (09:15)
[2019-02-16] MEDS: BUSPIRONE HCL 5 MG TAB PO PRN (09:26)
[2019-02-16] MEDS: LEVOTHYROXINE SODIUM 88 MCG TAB PO SCH (09:29)
[2019-02-16] MEDS: ASPIRIN 81 MG ENTERIC COATED PO SCH (09:29)
[2019-02-16] MEDS: POTASSIUM CHLORIDE 20 MEQ TAB CR PO SCH (09:29)
[2019-02-16] MEDS: APIXABAN 5 MG TABLET PO SCH ×2 (09:29→17:10)
[2019-02-16] MEDS: AMIODARONE HCL 200 MG TAB PO SCH (09:29)
[2019-02-16] MEDS: METOPROLOL SUCCINATE 50 MG TAB XL PO SCH ×2 (09:31→17:00)
[2019-02-16] MEDS: FUROSEMIDE 20 MG TAB PO SCH (09:31)
[2019-02-16] MEDS: CILOSTAZOL 100 MG TAB PO SCH ×2 (09:31→17:11)
--- NOTE | 2019-02-16 13:05 | NUR ---
RODDY MANRIQUE. STATES PT WILL NEED IV ABX 3 MORE DAYS. CONT DC PLANNING.
[2019-02-16] MEDS: TRAMADOL HCL 50 MG TAB PO PRN (13:38)
--- NOTE | 2019-02-16 14:02 | NUR ---
Follow-up Note RD Recommendation(s) for Physician: - Continue regular diet as ordered; diet texture per CORRECTIONAL OFFICER CHIEF - Continue Ensure Enlive/ Ensure Pudding BID w meals to promote PO intake - Rec appetite stimulant as medically appropriate Plan of Care: RD following, monitoring for tolerance and adequacy, ONS rec Nutrition reason for involvement: F/u RD Assessment 02/16: Pt was discussed during AM rounds. Pt continued to be confused. Per RN, his appetite has slightly improved. Pt was drinking some of the Ensure ordered. Family refused PEG placement. No GI complains noted. Will continue to monitor and follow. 02/11: Pt was discussed during AM rounds. Per RN, pt continued to have poor appetite and only drank fluids. Pt ate small amount of Ensure Pudding today. RN requested for Davis Ensure for pt as pt was asking for strawberry drinks. Order has been placed. CORRECTIONAL OFFICER CHIEF for therapy. Pt has had poor meal intake since admission. RD rec to initiate EN via PEG for senior living nutrition. Communicated RD rec with RN. Will continue to monitor and follow. 02/09: Visited pt in the room. Unable to obtain hx due to confusion. CORRECTIONAL OFFICER CHIEF following for therapy. Per AUGUSTO Garcia, pt was not eating much but drank a lot of fluids. No GI issue reported. Will continue to monitor and follow. 01/26: Pt was transferred to ICU yesterday due to hypoxia. Unable to obtain info as pt was on BiPAP. Per AUGUSTO Hammond, PO intake was poor this AM that pt only drank some juices. No GI complains reported. No ONS was ordered since we last saw pt on 02/02. Order for Ensure pudding has been placed. If pt continued to have poor PO intake, please consult. Will continue to monitor and follow. 02/02: 88 YOM admitted for PNA with AMS and general weakness, pt seen today for LOS. Pt discussed during am rounds, continues with fluctuating mentation- oriented today. 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 Pt states UBW of 150# within the past few months, no significant change noted. Pt denies any GI distress. No family present at time of visit. Discussed supplements, pt receptive to Ensure pudding- recommend TID with meals. CORRECTIONAL OFFICER CHIEF following, recommended nectar thick liquids. Encouraged po intake, pt verbalized understanding. Will monitor and continue to follow. Principal Problems/Diagnoses: AMS, PNA with hypoxia, generalized weakness PMH: CVA, pancreatitis, HTN GI: abdomen soft, flat, non-tender, flatus present, LBM - 02/15 Skin: WDL Labs: 02/16: Na 132 L, Ca 7.8 L 02/11: Na 146 H, K 3.1 L, BUN 34 H, Glucose 146 H, Phos 1.9 L 02/09: Glucose 123 H, Ca 8.3 L 02/04: Glucose 142 H, Ca 8.2 L 02/01: Na 149, K 3.7, Gluc 144 Meds: lasix, KCl, eliquis, synthroid, abx Ht: 60.7 in Wt: 146.38 lb; 125.06lb; 119.44lb;124.38lb BMI: 27.9 IBW: 110 lb Malnutrition Evaluation (02/02/19) The patient does not meet criteria for a specified degree of malnutrition at this time. Will re-evaluate at follow-up as appropriate. Nutrition Prescription (Diet Order): Regular diet (chopped, nectar) Estimated Nutritional Needs: 1375 - 1925 calories/day (25-35 kcal/kg CBW) 55 - 83 g protein/day (1-1.5 g pro/kg CBW) Diet Adequacy: Not meeting calorie needs, Not meeting protein needs Diet Education Needs Assessment: Diet education not indicated due to AMS. Nutrition Care Level: Low Nutrition Diagnosis: Inadequate energy and protein intake related with AMS and current medical status as evidenced by poor intake currently and not meeting needs. Goal: Patient will meet 75-100% of estimated needs by follow up Progress: Some progress Interventions: - Oral nutrition supplements - Liberalize diet Monitoring/Evaluation: Total energy intake, Total protein intake, Modified diet, Supplement, daily weight Signed: Krys Mendoza, MS, LD, RD
[2019-02-16] MEDS ORDERED: SODIUM CHLORIDE 0.9% 250ML 250 ML ONE (14:25)
--- NOTE | 2019-02-16 19:04 | Progress Note ---
DATE: 02/16/2019 Cardiology Progress Note SUBJECTIVE: No events. Stable cardiovascular status. No chest pain. Mild shortness of breath. OBJECTIVE: VITAL SIGNS: Temperature is 97.9, heart rate is 96, respirations are 20, blood pressure is 101/55, and oxygen saturation 90% on 4 L nasal cannula. GENERAL: He is a chronically ill-appearing elderly man. CARDIOVASCULAR: Regular rate and rhythm. LUNGS: Diminished breath sounds at bilateral bases. ABDOMEN: Soft, nontender. EXTREMITIES: Trace edema. LABORATORY DATA: Reviewed. Hemoglobin 8, potassium 3.7, creatinine is 0.8. TELEMETRY: Monitoring reveals normal sinus rhythm. IMPRESSION: 1. Paroxysmal atrial fibrillation. 2. Acute on chronic respiratory failure. 3. Multifocal pneumonia. 4. Altered mental status. 5. Hypertension. 6. Hyperlipidemia. RECOMMENDATIONS: The patient has stable cardiovascular status. Continue current cardiovascular medications including amiodarone and metoprolol for rate and rhythm control. Continue Eliquis for anticoagulation. Continue to monitor closely on telemetry. Landon Bedoya DO BM/MODL /[id number]
[2019-02-16] MEDS: TAMSULOSIN HCL 0.4 MG CAP PO SCH (20:53)
[2019-02-16] MEDS: LORAZEPAM 0.5 MG TAB PO PRN (20:53)
[2019-02-16] MEDS: FINASTERIDE 5 MG TAB PO SCH (20:53)
[2019-02-17] VITALS (25 sets, daily range): BP systolic 81–139; BP diastolic 49–73
[2019-02-17] MEDS: IPRATROPIUM BROMIDE 0.02% 2.5 ML NEB NEB SCH ×4 (01:30→19:18)
[2019-02-17 05:11] LABS: BASOPHILS % 0.2 % (0.0-1.0); EOSINOPHILS # (AUTO) 0.4 (0.0-0.4); EOSINOPHILS % 5.7 % (0.0-6.0); HEMATOCRIT 26.4 % (38.2-49.6); HEMOGLOBIN 8.1 g/dL (14.0-18.0); LYMPHOCYTES # (AUTO) 0.7 (1.0-3.2); LYMPHOCYTES % 10.5 % (18.0-39.1); MEAN CORPUSCULAR HEMOGLOBIN 25.8 pg (28-32); MEAN CORPUSCULAR HGB CONC 30.7 g/dL (31-35); MEAN CORPUSCULAR VOLUME 84.1 fL (81-99); MONOCYTES # (AUTO) 0.5 (0.2-0.8); MONOCYTES % 7.2 % (4.4-11.3); NEUTROPHILS % 74.6 % (38.7-80.0); PLATELET COUNT 201 x10e3/uL (140-360); RED BLOOD COUNT 3.14 x10e6/uL (4.3-5.7); RED CELL DISTRIBUTION WIDTH 20.7 % (11.7-14.4)
[2019-02-17] MEDS: CEFEPIME 1GM/NS 0.9% 50 ML 50 ML IV SCH ×3 (05:46→21:42)
[2019-02-17] MEDS: METRONIDAZOLE 500MG/NS 100ML 100 ML IV SCH ×3 (05:46→21:42)
[2019-02-17 05:52] LABS: ALANINE AMINOTRANSFERASE 24 IU/L (0-55); ALBUMIN 1.7 g/dL (3.5-5.0); ALBUMIN/GLOBULIN RATIO 0.5 (0.8-2.0); ALKALINE PHOSPHATASE 98 IU/L (40-150); ANION GAP 10.1 mmol/L (8-16); BLOOD UREA NITROGEN 18 mg/dL (7-26); BUN/CREATININE RATIO 22 (6-25); CALCIUM 7.9 mg/dL (8.4-10.2); CARBON DIOXIDE 26 mmol/L (22-29); CHLORIDE 107 mmol/L (98-107); CREATININE, SERUM 0.82 mg/dL (0.72-1.25); EST GLOMERULAR FILTRATION RATE > 60 ML/MIN (60-); GLUCOSE 93 mg/dL (74-118); MAGNESIUM 1.6 MG/DL (1.3-2.1); POTASSIUM 4.1 mmol/L (3.5-5.1); SODIUM 139 mmol/L (136-145)
[2019-02-17] MEDS: FUROSEMIDE 20 MG TAB PO SCH (08:05)
[2019-02-17] MEDS: AMIODARONE HCL 200 MG TAB PO SCH (08:05)
[2019-02-17] MEDS: LEVOTHYROXINE SODIUM 88 MCG TAB PO SCH (08:05)
[2019-02-17] MEDS: APIXABAN 5 MG TABLET PO SCH ×2 (08:05→18:07)
[2019-02-17] MEDS: CILOSTAZOL 100 MG TAB PO SCH ×2 (08:05→18:07)
[2019-02-17] MEDS: ASPIRIN 81 MG ENTERIC COATED PO SCH (08:05)
[2019-02-17] MEDS: BALSAM PERU/CASTOR OIL 60 GM OINT...G. TP SCH (08:07)
[2019-02-17] MEDS: METOPROLOL SUCCINATE 50 MG TAB XL PO SCH ×2 (08:07→18:07)
[2019-02-17] MEDS: TRAMADOL HCL 50 MG TAB PO PRN ×2 (08:17→22:54)
[2019-02-17] MEDS: POTASSIUM CHLORIDE 20 MEQ TAB CR PO SCH (09:00)
--- NOTE | 2019-02-17 09:53 | NUR ---
ASSESSMENT: Spiritual distress Pt grieves his 's . Pt states, "I sure do miss her." Pt states his was as "beautiful, joyful Buddhism woman" who was very involved in lutheran. Intervention: Provided unhurried empathic listening. Facilitated storytelling. Outcome: Pt expressed appreciation for visit. Followed up with RN & CM. Will continue to follow as able. DILLAN TRISTAN Cfo Controller Spiritual Care Department O: [phone] Pager: [phone] ([phone] number calling from)
--- NOTE | 2019-02-17 11:28 | NUR ---
ST NOTE: Pt sleeping, RN requested deferring dysphagia therapy at this time due to pt fatigue, will check back later today for pt readiness. Handoff to AUGUSTO William
--- NOTE | 2019-02-17 17:17 | NUR ---
Daughter, Alyssa, requests patient code status be changed to DNR because "this is his wish." Witnessed by weigher and charger. Dr Rowell informed and order rec'd.
--- NOTE | 2019-02-17 18:10 | Progress Note ---
DATE: 02/17/2019 Cardiology Progress Note SUBJECTIVE: No events. The patient has altered mental status. Cannot obtain review of systems. OBJECTIVE: VITAL SIGNS: Temperature is 99, heart rate is 89, respirations are 26, blood pressure is 97/56, and oxygen saturation 97% on 4 L nasal cannula. GENERAL: Elderly ill-appearing man, in no apparent distress. CARDIOVASCULAR: Regular rate and rhythm. LUNGS: Diminished breath sounds at bilateral bases. ABDOMEN: Soft, nontender, and nondistended. NEUROLOGIC: Altered mental status. CARDIOVASCULAR MEDICATIONS: Reviewed. LABORATORY DATA: Reviewed. Hemoglobin 8.1, potassium 4.1, and creatinine 0.8. TELEMETRY: Monitoring revealed normal sinus rhythm. IMPRESSION: 1. Paroxysmal atrial fibrillation. 2. Acute on chronic respiratory failure. 3. Multifocal pneumonia. 4. Altered mental status. 5. Hypertension. 6. Hyperlipidemia. RECOMMENDATIONS: The patient currently has a stable cardiovascular status. Continue current cardiovascular medications. Continue Eliquis for anticoagulation. Landon Bedoya DO BM/MODL /[id number]
--- NOTE | 2019-02-17 20:20 | NUR ---
CHG BATH WAS GIVEN AND ALLEYVN FOAM DRESSING REMOVED FROM SACRUM AND NEW ONE PLACED ALONG WITH THE ALLEYVN FOAM HEAL PROTECTORS. BOTH HEALS ARE RED, MUSHY HOWEVER BOTH ARE BLANCHABLE. WILL KEEP HEAL PROTECTORS ON AND WILL KEEP HEALS ELEVATED
[2019-02-17] MEDS: TAMSULOSIN HCL 0.4 MG CAP PO SCH (21:42)
[2019-02-17] MEDS: LORAZEPAM 0.5 MG TAB PO PRN (21:42)
[2019-02-17] MEDS: FINASTERIDE 5 MG TAB PO SCH (21:42)
[2019-02-17] MEDS: ACETAMINOPHEN 325 MG TAB PO PRN (22:54)
[2019-02-18] VITALS (12 sets, daily range): BP systolic 80–120; BP diastolic 44–74
[2019-02-18] MEDS: IPRATROPIUM BROMIDE 0.02% 2.5 ML NEB NEB SCH ×4 (01:00→19:45)
[2019-02-18] MEDS: BUSPIRONE HCL 5 MG TAB PO PRN ×2 (01:03→21:00)
--- NOTE | 2019-02-18 01:03 | NUR ---
PATIENT IS NOT SLEEPING TONIGHT WELL LAST UNCRATER 02/16/19. I HAVE GAVE HIM A CHG BATH EARLIER IN THE SHIFT AND MEDICATED HIM WITH HIS PRN ATIVAN 0.25MG PER PATIENT REQUEST AFTER THE CHG BATH WAS DONE AND CLEAN LINEN CHANGE. AROUND 0000 HE WAS REQUESTING SOMETHING ELSE FOR SLEEP, SAYING HE IS HEARING DINGING SOUNDS AND BANGING SOUNDS. I TOLD HIM THE CARDIAC MONITORS MAKES THE DINGING SOUNDS AND THE BANGING MAYBE OUR PIXS WHERE GET OUR MEDS OUT OF. I THEN REQESTED FOR A SLEEP KIT IN WHICH EAR PLUGS WERE PLACED IN BOTH EARS, EYE MASK, AND A DOOR SIGN. AND NOW I JUST ADMINISTERED HIS PRN BUSPAR AND ALONG WITH PLAYING SOOTHING NATURE MUSIC FROM HIS IPAD. WILL CONTINUE TO MONITOR AND IF THESE INTERVENTIONS ARE NOT SUCCESSFUL, I WILL REPORT TO ONCOMING NURSE OR HIS ATTENDING REGARDING A POSSIBLE CHANGE OF HIS MEDICATIONS.
--- NOTE | 2019-02-18 01:17 | NUR ---
PATIENT BEING Q2H TURN ORDERED HOWEVER, WHEN DOING A HOUR CHECK PATIENT ALWAYS ON HIS BACK DESPITE USING THE 2 SMALL WEDGES THAT ARE USED TO SUPPORT PATIENT WHEN THE PATIENT IS EITHER LAYING ON HIS RIGHT/LEFT SIDE, I EDUCATED HIM ON WHY WE TURN AND SO NOW USING THE ONE LARGE PINK WEDGE TO SEE IF WILL BE MORE SUCCESSFUL IN KEEPING HIM TURNED
[2019-02-18] MEDS ORDERED: SODIUM CHLORIDE 0.9% 50ML 50 ML ONE (04:15)
[2019-02-18 05:09] LABS: BASOPHILS % 0.3 % (0.0-1.0); EOSINOPHILS # (AUTO) 0.4 (0.0-0.4); EOSINOPHILS % 5.8 % (0.0-6.0); HEMOGLOBIN 8.4 g/dL (14.0-18.0); LYMPHOCYTES # (AUTO) 0.8 (1.0-3.2); LYMPHOCYTES % 13.1 % (18.0-39.1); MEAN CORPUSCULAR HGB CONC 31.1 g/dL (31-35); MEAN CORPUSCULAR VOLUME 83.6 fL (81-99); MONOCYTES # (AUTO) 0.6 (0.2-0.8); NEUTROPHILS # (AUTO) 4.4 (2.1-6.9); NEUTROPHILS % 69.7 % (38.7-80.0); PLATELET COUNT 206 x10e3/uL (140-360); RED BLOOD COUNT 3.23 x10e6/uL (4.3-5.7); RED CELL DISTRIBUTION WIDTH 20.8 % (11.7-14.4)
[2019-02-18] MEDS: METRONIDAZOLE 500MG/NS 100ML 100 ML IV SCH ×3 (05:29→21:35)
[2019-02-18] MEDS: CEFEPIME 1GM/NS 0.9% 50 ML 50 ML IV SCH ×3 (05:29→21:46)
[2019-02-18 05:35] LABS: ALANINE AMINOTRANSFERASE 22 IU/L (0-55); ALBUMIN 1.7 g/dL (3.5-5.0); ALBUMIN/GLOBULIN RATIO 0.5 (0.8-2.0); ALKALINE PHOSPHATASE 110 IU/L (40-150); BLOOD UREA NITROGEN 18 mg/dL (7-26); BUN/CREATININE RATIO 21 (6-25); CARBON DIOXIDE 28 mmol/L (22-29); CHLORIDE 105 mmol/L (98-107); CREATININE, SERUM 0.85 mg/dL (0.72-1.25); EST GLOMERULAR FILTRATION RATE > 60 ML/MIN (60-); GLUCOSE 92 mg/dL (74-118); MAGNESIUM 1.6 MG/DL (1.3-2.1); SODIUM 137 mmol/L (136-145)
--- NOTE | 2019-02-18 05:44 | NUR ---
ATTENDING ROUNDED. VERBAL ORDERS RECEIVED TO DC TRANSFER TO IMCU AND ORDER TO TRANSFER TO MED-SURGE
[2019-02-18 07:26] LABS: EOSINOPHILS % (MANUAL) 6 % (0-7); HYPOCHROMASIA SLIGHT; LYMPHOCYTES % (MANUAL) 11 % (19-48); METAMYELOCYTES % (MANUAL) 2 % (0-0); MONOCYTES % (MANUAL) 5 % (3.4-9.0); MYELOCYTES % (MANUAL) 1 % (0-0); NEUTROPHILS % (MANUAL) 75 % (40-74); PLATELET ESTIMATE ADEQUATE; PLATELET MORPHOLOGY COMMENT NORMAL; RBC MORPHOLOGY COMMENT NORMAL
[2019-02-18] MEDS: POTASSIUM CHLORIDE 20 MEQ TAB CR PO SCH (09:00)
[2019-02-18] MEDS: FUROSEMIDE 20 MG TAB PO SCH (09:51)
[2019-02-18] MEDS: AMIODARONE HCL 200 MG TAB PO SCH (09:51)
[2019-02-18] MEDS: LEVOTHYROXINE SODIUM 88 MCG TAB PO SCH (09:51)
[2019-02-18] MEDS: METOPROLOL SUCCINATE 50 MG TAB XL PO SCH ×2 (09:51→17:00)
[2019-02-18] MEDS: CILOSTAZOL 100 MG TAB PO SCH ×2 (09:51→17:00)
[2019-02-18] MEDS: ASPIRIN 81 MG ENTERIC COATED PO SCH (09:51)
[2019-02-18] MEDS: APIXABAN 5 MG TABLET PO SCH ×2 (09:51→17:00)
[2019-02-18] MEDS: BALSAM PERU/CASTOR OIL 60 GM OINT...G. TP SCH (09:51)
--- NOTE | 2019-02-18 10:50 | NUR ---
Pt sleeping soundly and no family present. Followed up with RN. DILLAN TRISTAN Microwave Engineer Spiritual Care Department O: [phone] Pager: [phone] ([phone] number calling from)
--- NOTE | 2019-02-18 14:05 | NUR ---
Report called to AUGUSTO Diaz for 299. Patient transported via bed on 4L NC and IVF infusing. Bed pump in place and RN to bedside.
--- NOTE | 2019-02-18 14:43 | NUR ---
RECD PT IN BED FROM ICU VIA BED AAOX1-2,O2 4L NC IN PLACE,IV TO LT UA PICC LINE PATENT.HUMPHREYS TO BSD CLEAR YELLOW URINE.HOB ELEVATED.CALL MORRISON IN BED
--- NOTE | 2019-02-18 18:31 | NUR ---
PT TURNED REPOSITIONED,C/O BACK PAIN MEDICATED,O2 4L NSC IN PLACE,HUMPHREYS TO BSD
[2019-02-18] MEDS: TRAMADOL HCL 50 MG TAB PO PRN (18:33)
[2019-02-18] MEDS: TAMSULOSIN HCL 0.4 MG CAP PO SCH (20:29)
[2019-02-18] MEDS: FINASTERIDE 5 MG TAB PO SCH (20:29)
[2019-02-18] MEDS: ACETAMINOPHEN 325 MG TAB PO PRN (21:00)
[2019-02-18] MEDS: LORAZEPAM 0.5 MG TAB PO PRN (22:15)
[2019-02-18] MEDS ORDERED: MORPHINE SULFATE INJ 4 MG/ML INJ 1ML IV PRN (23:00)
[2019-02-19] VITALS (7 sets, daily range): BP systolic 78–110; BP diastolic 41–60
[2019-02-19] MEDS: IPRATROPIUM BROMIDE 0.02% 2.5 ML NEB NEB SCH ×4 (01:00→19:30)
[2019-02-19] MEDS: CEFEPIME 1GM/NS 0.9% 50 ML 50 ML IV SCH (06:00)
[2019-02-19] MEDS: METRONIDAZOLE 500MG/NS 100ML 100 ML IV SCH (06:03)
--- NOTE | 2019-02-19 06:14 | NUR ---
Patient resting quitly at this time, Continue monitor.
--- NOTE | 2019-02-19 07:27 | NUR ---
PATIENT IN BED RESTING WITH HEAD OF BED ELEVATED. O2 IN PLACE VIA N/C. HUMPHREYS CATHETER DRAINING YELLOW URINE. HEEL PROTECTORS IN PLACE. REPOSITIONED IN BED WITH PILLOW BETWEEN LEGS. CALL LIGHT AT REACH.
[2019-02-19] MEDS: LEVOTHYROXINE SODIUM 88 MCG TAB PO SCH (07:50)
[2019-02-19] MEDS: ONDANSETRON HCL INJ 2MG/ML 2ML 2 MG/ML VIAL IV PRN ×2 (09:06→23:50)
[2019-02-19] MEDS: BALSAM PERU/CASTOR OIL 60 GM OINT...G. TP SCH (09:37)
[2019-02-19] MEDS: FUROSEMIDE 20 MG TAB PO SCH (09:37)
[2019-02-19] MEDS: APIXABAN 5 MG TABLET PO SCH ×2 (09:37→17:22)
[2019-02-19] MEDS: AMIODARONE HCL 200 MG TAB PO SCH (09:37)
[2019-02-19] MEDS: POTASSIUM CHLORIDE 20 MEQ TAB CR PO SCH (09:37)
[2019-02-19] MEDS: CILOSTAZOL 100 MG TAB PO SCH ×2 (09:37→17:22)
[2019-02-19] MEDS: ASPIRIN 81 MG ENTERIC COATED PO SCH (09:37)
--- NOTE | 2019-02-19 10:01 | NUR ---
Dear Doctor, patient is already on PT service. All assessments and notes are in the chart for your review. Thank you.-- Reji Solis PT. Addendum: 02/19/19 at 1003 by Reji Solis PT Amended: Links added.
[2019-02-19] MEDS: METOPROLOL SUCCINATE 50 MG TAB XL PO SCH ×2 (10:04→17:00)
--- NOTE | 2019-02-19 11:32 | NUR ---
PATIENT C/O NAUSEA, MD NOTIFIED. NEW ORDER RECEIVED AND IMPLEMENTED. NO MORE C/O NAUSEA. CALL LIGHT AT REACH.
--- NOTE | 2019-02-19 15:44 | NUR ---
PATIENT EXERCISED IN BED WITH PHYSICAL THERAPY. REPOSITIONED IN BED. REQUESTED AND RECEIVED A CUP OF CRANBERRY JUICE. BED IN LOWER POSITION, CALL LIGHT AT REACH.
[2019-02-19] MEDS: SODIUM CHLORIDE 0.9% 1000ML 1,000 ML IV SCH (17:59)
--- NOTE | 2019-02-19 20:13 | NUR ---
PATIENT RESTING IN BED, IV INFUSING, HOB SLIGHTLY ELEVATED, 02 PER NC REMAIN INTACT. WILL CONTINUE TO MONITOR. ROUNDS DONE PER AM NURSE. CALL LIGHT IN REACH.
[2019-02-19] MEDS: TAMSULOSIN HCL 0.4 MG CAP PO SCH (21:20)
[2019-02-19] MEDS: FINASTERIDE 5 MG TAB PO SCH (21:23)
[2019-02-20] VITALS (8 sets, daily range): BP systolic 85–101; BP diastolic 42–59
[2019-02-20] MEDS: IPRATROPIUM BROMIDE 0.02% 2.5 ML NEB NEB SCH ×5 (00:15→20:18)
[2019-02-20] MEDS: LORAZEPAM 0.5 MG TAB PO PRN ×2 (04:46→22:30)
--- NOTE | 2019-02-20 05:52 | NUR ---
PATIENT RESTING COMFORTABLY, CAN HEAR HIM SNORING AT THE NURSES STATION. CALL LIGHT REMAIN IN REACH. WILL CONTINUE TO MONITOR.
[2019-02-20 06:42] LABS: BASOPHILS % 0.3 % (0.0-1.0); EOSINOPHILS # (AUTO) 0.4 (0.0-0.4); EOSINOPHILS % 5.1 % (0.0-6.0); HEMATOCRIT 28.2 % (38.2-49.6); HEMOGLOBIN 8.4 g/dL (14.0-18.0); LYMPHOCYTES # (AUTO) 0.9 (1.0-3.2); LYMPHOCYTES % 12.4 % (18.0-39.1); MEAN CORPUSCULAR HGB CONC 29.8 g/dL (31-35); MEAN CORPUSCULAR VOLUME 87.3 fL (81-99); MONOCYTES # (AUTO) 0.6 (0.2-0.8); MONOCYTES % 8.5 % (4.4-11.3); NEUTROPHILS % 72.5 % (38.7-80.0); PLATELET COUNT 271 x10e3/uL (140-360); RED BLOOD COUNT 3.23 x10e6/uL (4.3-5.7); RED CELL DISTRIBUTION WIDTH 20.8 % (11.7-14.4)
[2019-02-20 06:58] LABS: ALANINE AMINOTRANSFERASE 21 IU/L (0-55); ALBUMIN 1.7 g/dL (3.5-5.0); ALBUMIN/GLOBULIN RATIO 0.6 (0.8-2.0); ALKALINE PHOSPHATASE 103 IU/L (40-150); ANION GAP 8.1 mmol/L (8-16); BLOOD UREA NITROGEN 17 mg/dL (7-26); BUN/CREATININE RATIO 20 (6-25); CALCIUM 7.6 mg/dL (8.4-10.2); CARBON DIOXIDE 26 mmol/L (22-29); CHLORIDE 108 mmol/L (98-107); CREATININE, SERUM 0.85 mg/dL (0.72-1.25); EST GLOMERULAR FILTRATION RATE > 60 ML/MIN (60-); GLUCOSE 109 mg/dL (74-118); POTASSIUM 4.1 mmol/L (3.5-5.1); SODIUM 138 mmol/L (136-145)
--- NOTE | 2019-02-20 07:17 | NUR ---
ROUNDS DONE, REPORT GIVEN TO AM NURSE, PATIENT CONTINUE RESTING, CALL LIGHT IN REACH.
--- NOTE | 2019-02-20 07:28 | NUR ---
PATIENT IN BED RESTING WITH EYES CLOSED, NO RESPIRATORY DISTRESS OBSERVED. BED IN LOWER POSITION, CALL LIGHT AT REACH.
[2019-02-20] MEDS: LEVOTHYROXINE SODIUM 88 MCG TAB PO SCH (08:00)
[2019-02-20] MEDS: SODIUM CHLORIDE 0.9% 1000ML 1,000 ML IV SCH (08:00)
[2019-02-20] MEDS: METOPROLOL SUCCINATE 50 MG TAB XL PO SCH ×2 (09:00→17:00)
[2019-02-20] MEDS: APIXABAN 5 MG TABLET PO SCH ×2 (09:48→17:24)
[2019-02-20] MEDS: CILOSTAZOL 100 MG TAB PO SCH ×2 (09:48→17:24)
[2019-02-20] MEDS: POTASSIUM CHLORIDE 20 MEQ TAB CR PO SCH (09:48)
[2019-02-20] MEDS: ASPIRIN 81 MG ENTERIC COATED PO SCH (09:48)
[2019-02-20] MEDS: AMIODARONE HCL 200 MG TAB PO SCH (09:48)
[2019-02-20] MEDS: BALSAM PERU/CASTOR OIL 60 GM OINT...G. TP SCH (09:48)
[2019-02-20] MEDS: FUROSEMIDE 20 MG TAB PO SCH (09:48)
--- NOTE | 2019-02-20 11:35 | NUR ---
PATIENT EXERCISING IN JODIE WITH PHYSICAL THERAPY, NO DISTRESS NOTED. WILL CLOSELY MONITOR.
--- NOTE | 2019-02-20 14:45 | Progress Note ---
DATE: 02/20/2019 Cardiology Progress Note SUBJECTIVE: The patient reports he has chest pain when he changes position. He denies shortness of breath. He was started on IV fluids yesterday due to poor p.o. intake. He is alert and oriented x3. OBJECTIVE: VITAL SIGNS: Temperature 97.2 degrees, pulse 75, respiratory rate 20, blood pressure 98/55, oxygen 93% on 4 L nasal cannula. GENERAL: Elderly man, ill-appearing, frail, no acute distress. Awake and alert. LUNGS: Diminished breath sounds at bilateral bases. CARDIOVASCULAR: Normal rate, regular rhythm. No murmur. ABDOMEN: Soft, nontender. EXTREMITIES: No edema. CARDIAC MEDICATIONS: Furosemide 20 mg p.o. daily, amiodarone 200 mg p.o. daily, apixaban 5 mg p.o. b.i.d., aspirin 81 mg p.o. daily, cilostazol 100 mg p.o. b.i.d., levothyroxine 88 mcg p.o. daily, metoprolol succinate 50 mg p.o. b.i.d. LABORATORY DATA: WBC 6.83, hemoglobin 8.4, hematocrit 28.2, platelets 271. Sodium 138, potassium 4.1, chloride 108, CO2 26, BUN 17, creatinine 0.85. TELEMETRY: Normal sinus rhythm. IMPRESSION: 1. Acute hypoxic respiratory failure, now extubated. 2. Atrial fibrillation, rapid ventricular response, currently sinus rhythm. 3. Multifocal pneumonia. 4. Altered mental status, improved. 5. Hyperthyroidism. 6. Hypertension. 7. Hyperlipidemia. 8. Anemia. RECOMMENDATIONS: Continue current cardiac medications. Monitor patient closely on telemetry. Watch volume status. Continue Eliquis for CVA prophylaxis. Thank you for this consult. We will continue to follow. Malena Crawford MD ABS/MODL /[id number]
--- NOTE | 2019-02-20 16:29 | NUR ---
PATIENT C/O BEING COLD, WARM BLANKET PROVIDED. BATTERY CHANGED IN TELEMETRY BOX. BED IN LOWER POSITION, CALL LIGHT AT REACH.
[2019-02-20] MEDS: TAMSULOSIN HCL 0.4 MG CAP PO SCH (21:00)
[2019-02-20] MEDS: FINASTERIDE 5 MG TAB PO SCH (21:00)
[2019-02-20] MEDS ORDERED: CEFEPIME 1GM/NS 0.9% 50 ML 50 ML IV SCH (22:00)
[2019-02-20] MEDS ORDERED: METRONIDAZOLE 500MG/NS 100ML 100 ML IV SCH (22:00)
[2019-02-21] VITALS (8 sets, daily range): BP systolic 82–149; BP diastolic 49–71
[2019-02-21] MEDS: IPRATROPIUM BROMIDE 0.02% 2.5 ML NEB NEB SCH ×4 (00:35→20:45)
--- NOTE | 2019-02-21 05:16 | NUR ---
Patient laying in bed with HOB slightly elevated. AAO x 4. No sob noted. No acute distress noted. Patient reports of no pain at this time. Patient in stable condition at this time and will continue to monitor.
--- NOTE | 2019-02-21 07:25 | NUR ---
PATIENT ASSISTED WITH DIAPER CHANGE AND REPOSITIONING. BED IN LOWER POSITION, CALL LIGHT AT REACH.
[2019-02-21] MEDS: LEVOTHYROXINE SODIUM 88 MCG TAB PO SCH (07:53)
[2019-02-21] MEDS: ASPIRIN 81 MG ENTERIC COATED PO SCH (09:24)
[2019-02-21] MEDS: AMIODARONE HCL 200 MG TAB PO SCH (09:24)
[2019-02-21] MEDS: POTASSIUM CHLORIDE 20 MEQ TAB CR PO SCH (09:24)
[2019-02-21] MEDS: BALSAM PERU/CASTOR OIL 60 GM OINT...G. TP SCH (09:24)
[2019-02-21] MEDS: CILOSTAZOL 100 MG TAB PO SCH ×2 (09:24→17:45)
[2019-02-21] MEDS: FUROSEMIDE 20 MG TAB PO SCH (09:24)
[2019-02-21] MEDS: APIXABAN 5 MG TABLET PO SCH ×2 (09:24→17:45)
[2019-02-21] MEDS: METOPROLOL SUCCINATE 50 MG TAB XL PO SCH ×2 (09:24→17:00)
[2019-02-21] MEDS: SODIUM CHLORIDE 0.9% 1000ML 1,000 ML IV SCH ×2 (09:45→22:25)
--- NOTE | 2019-02-21 12:30 | NUR ---
PATIENT ASSISTED WITH DIAPER CHANGE. HAD A LARGE BM. REPOSITIONED IN BED. ASSISTED WITH LUNCH. CALL LIGHT AT REACH.
--- NOTE | 2019-02-21 14:50 | Progress Note ---
DATE: 02/21/2019 Cardiology Progress Note SUBJECTIVE: The patient reports he has chest pain, which feels like something is stuck in his chest after eating. OBJECTIVE: VITAL SIGNS: Temperature 97.1 degrees, pulse 121, respiratory rate 17, blood pressure 149/71, and oxygen saturation 96% on 4 L nasal cannula. GENERAL: Elderly man, chronically ill-appearing, frail, in no acute distress, awake and alert. LUNGS: Diminished breath sounds at bilateral bases. No wheezes or crackles. CARDIOVASCULAR: Normal rate, tachycardic, regular. No murmur. ABDOMEN: Soft, nontender. EXTREMITIES: No edema. CARDIAC MEDICATIONS: Metoprolol succinate 50 mg p.o. b.i.d., furosemide 20 mg p.o. daily, amiodarone 200 mg p.o. daily, apixaban 5 mg p.o. b.i.d., aspirin 81 mg p.o. daily, cilostazol 100 mg p.o. b.i.d., levothyroxine 88 mcg p.o. daily. LABORATORY DATA: None today. TELEMETRY: Normal sinus rhythm. IMPRESSION: 1. Acute hypoxic respiratory failure, now extubated. 2. Atrial fibrillation with rapid ventricular response, currently sinus rhythm. 3. Multifocal pneumonia. 4. Altered mental status, improved. 5. Hypothyroidism. 6. Hypertension. 7. Hyperlipidemia. 8. Anemia. RECOMMENDATIONS: Continue current cardiac medications. Monitor patient closely on telemetry. Watch volume status and continue Eliquis for CVA prophylaxis. Thank you for this consult. We will continue to follow. Malena Crawford MD ABS/MODL /[id number]
[2019-02-21] MEDS: TRAMADOL HCL 50 MG TAB PO PRN (16:15)
--- NOTE | 2019-02-21 19:49 | NUR ---
PT IS RESTING IN BED. NO RESPIRATORY DISTRESS NOTED. BED IN THE LOWEST POSITION, LOCKED, BED ALARM ON, AND CALL LIGHT WITHIN REACH. WILL CONTINUE TO MONITOR.
[2019-02-21] MEDS: FINASTERIDE 5 MG TAB PO SCH (21:14)
[2019-02-21] MEDS: LORAZEPAM 0.5 MG TAB PO PRN (21:14)
[2019-02-21] MEDS: TAMSULOSIN HCL 0.4 MG CAP PO SCH (21:14)
[2019-02-22] VITALS (7 sets, daily range): BP systolic 93–130; BP diastolic 52–59
[2019-02-22] MEDS: IPRATROPIUM BROMIDE 0.02% 2.5 ML NEB NEB SCH ×5 (02:00→20:15)
[2019-02-22] MEDS: BUSPIRONE HCL 5 MG TAB PO PRN (02:10)
[2019-02-22] MEDS: TRAMADOL HCL 50 MG TAB PO PRN (08:10)
[2019-02-22] MEDS: POTASSIUM CHLORIDE 20 MEQ TAB CR PO SCH (08:19)
[2019-02-22] MEDS: LEVOTHYROXINE SODIUM 88 MCG TAB PO SCH (08:19)
[2019-02-22] MEDS: METOPROLOL SUCCINATE 50 MG TAB XL PO SCH ×2 (08:19→17:00)
[2019-02-22] MEDS: CILOSTAZOL 100 MG TAB PO SCH ×2 (08:19→17:20)
[2019-02-22] MEDS: ASPIRIN 81 MG ENTERIC COATED PO SCH (08:19)
[2019-02-22] MEDS: FUROSEMIDE 20 MG TAB PO SCH (08:19)
[2019-02-22] MEDS: APIXABAN 5 MG TABLET PO SCH ×2 (08:19→17:20)
[2019-02-22] MEDS: BALSAM PERU/CASTOR OIL 60 GM OINT...G. TP SCH (08:19)
[2019-02-22] MEDS: AMIODARONE HCL 200 MG TAB PO SCH (08:19)
--- NOTE | 2019-02-22 11:51 | Progress Note ---
DATE: 02/22/2019 SUBJECTIVE: The patient did well overnight. No new complaints. He said he is eating much better. OBJECTIVE: VITAL SIGNS: Temperature 97.8, pulse 71, blood pressure 112/54, sats 96%. GENERAL: No apparent distress. CARDIOVASCULAR: Regular rate and rhythm. LUNGS: Decreased breath sounds bilaterally. ABDOMEN: Good bowel sounds. Soft, nontender. EXTREMITIES: No clubbing or cyanosis. NEUROLOGIC: Nonfocal. ASSESSMENT AND PLAN: 1. Pneumonia. Continue with current care since he is doing better. 2. Atrial fibrillation. medications. 3. Anemia. Continue to monitor p.r.n. 4. Hypothyroidism. Continue with his. 5. Thyroid medicine. 6. Benign prostatic hyperplasia. Continue with his benign prostatic hyperplasia medicine. 7. Hypertension. Continue with his medication. 8. Anorexia. The patient is doing better . 9. Weakness. The patient is in need of residential facility, so we will go ahead and try . MD LAUREEN Macedo/ANGELES /[id number]
--- NOTE | 2019-02-22 11:54 | Diagnostic Imaging Report ---
EXAMINATION: CHEST 2 VIEWS INDICATION: Pneumonia. COMPARISON: Chest radiograph 02/14/2019. FINDINGS: TUBES and LINES: Unchanged left-sided PICC which terminates in the brachiocephalic confluence. LUNGS: There is increasing confluent opacity within the right midlung and right lower lung. Mild perihilar and interstitial opacities. Interval development of patchy left basilar opacities. PLEURA: No pleural effusion or pneumothorax. HEART AND MEDIASTINUM: The cardiomediastinal silhouette is unremarkable. BONES AND SOFT TISSUES: No acute osseous abnormality. Diffuse osteopenia. UPPER ABDOMEN: No free air under the diaphragm. IMPRESSION: Increasing multifocal opacities, consistent with clinical history of pneumonia. Suggest follow-up chest radiograph in 6-8 weeks to assess for resolution. Mild pulmonary interstitial edema. Signed by: Dr. Ivan Horton MD on 02/22/2019 11:50 AM
[2019-02-22] MEDS: SODIUM CHLORIDE 0.9% 1000ML 1,000 ML IV SCH (12:25)
--- NOTE | 2019-02-22 13:46 | Progress Note ---
DATE: 02/22/2019 Cardiology Progress Note SUBJECTIVE: The patient reports he has left-sided pain that is worse with inspiration. He denies any shortness of breath. OBJECTIVE: VITAL SIGNS: Temperature 97.3 degrees, pulse 75, respiratory rate 16, blood pressure 130/59, and oxygen saturation 91% on 4 L nasal cannula. GENERAL: Elderly man, frail, no acute distress, chronically ill-appearing, awake and alert. LUNGS: Diminished breath sounds at bilateral bases. No wheezes or crackles. CARDIOVASCULAR: Normal rate, regular rhythm. No murmur. ABDOMEN: Soft and nontender. EXTREMITIES: No edema. CARDIAC MEDICATIONS: Metoprolol succinate 50 mg p.o. b.i.d., furosemide 20 mg p.o. daily, amiodarone 200 mg p.o. daily, apixaban 5 mg p.o. b.i.d., levothyroxine 88 mcg p.o. daily, cilostazol 100 mg p.o. b.i.d., aspirin 81 mg p.o. daily, and losartan 25 mg p.o. daily. LABORATORY DATA: None today. IMAGING: Chest x-ray, increasing multifocal opacities consistent with clinical history of pneumonia. Suggest followup chest radiograph in 6 to 8 weeks to assess for resolution. Mild pulmonary interstitial edema. TELEMETRY: Normal sinus rhythm. IMPRESSION: 1. Acute hypoxic respiratory failure, now extubated. 2. Atrial fibrillation with rapid ventricular response, currently sinus rhythm. 3. Multifocal pneumonia. 4. Altered mental status, improved. 5. Hypothyroidism. 6. Hypertension. 7. Hyperlipidemia. 8. Anemia. RECOMMENDATIONS: Chest x-ray results noted. Check BNP and basic metabolic panel. We will increase diuretics if renal function is acceptable. Monitor the patient closely on telemetry. Continue Eliquis for CVA prophylaxis. Continue current cardiac medications otherwise. Thank you for this consult. We will continue to follow. Malena Crawford MD ABS/MODL /[id number]
[2019-02-22 14:17] LABS: ANION GAP 8.6 mmol/L (8-16); BLOOD UREA NITROGEN 9 mg/dL (7-26); BUN/CREATININE RATIO 11 (6-25); CALCIUM 7.8 mg/dL (8.4-10.2); CARBON DIOXIDE 27 mmol/L (22-29); CHLORIDE 107 mmol/L (98-107); EST GLOMERULAR FILTRATION RATE > 60 ML/MIN (60-); GLUCOSE 130 mg/dL (74-118); POTASSIUM 4.6 mmol/L (3.5-5.1); SODIUM 138 mmol/L (136-145)
--- NOTE | 2019-02-22 14:34 | NUR ---
Pt received resting in bed. 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 On droplet isolation due to infection in Sputum. Oriented to staff and surroundings. All meds given as ordered. Emotional support given. Call frederick within reach. Will monitor
[2019-02-22] MEDS ORDERED: ONDANSETRON HCL 4 MG ORAL DISINTEGRATING TAB PO PRN (15:45)
[2019-02-22] MEDS: FUROSEMIDE INJ 10 MG/ML 4 ML VIAL IV SCH (17:00)
--- NOTE | 2019-02-22 19:10 | NUR ---
patient received awake, alert, lying quietly in bed. no c/o pain noted. hob elevated 40 degrees. 12/21l/hf/nc in use. respirations even and unlabored. pm assessment complete. call frederick placed within reach. family noted at the bedside. patient/family instructed to call for assistance when needed.
[2019-02-22] MEDS: TAMSULOSIN HCL 0.4 MG CAP PO SCH (21:00)
[2019-02-22] MEDS: FINASTERIDE 5 MG TAB PO SCH (21:00)
[2019-02-23] VITALS (8 sets, daily range): BP systolic 95–162; BP diastolic 51–75
[2019-02-23] MEDS: IPRATROPIUM BROMIDE 0.02% 2.5 ML NEB NEB SCH ×3 (01:00→13:30)
[2019-02-23] MEDS: SODIUM CHLORIDE 0.9% 1000ML 1,000 ML IV SCH (01:45)
[2019-02-23] MEDS: ACETAMINOPHEN 325 MG TAB PO PRN (01:58)
--- NOTE | 2019-02-23 01:58 | NUR ---
patient medicated with tylenol 650 mg po for c/o headache at this time.
--- NOTE | 2019-02-23 05:00 | NUR ---
bath given and skin care provided. no further c/o pain noted.
--- NOTE | 2019-02-23 05:30 | NUR ---
here to see patient. cbc collected at this time and sent to lab per orders.
[2019-02-23 07:47] LABS: BASOPHILS % 0.7 % (0.0-1.0); EOSINOPHILS # (AUTO) 0.3 (0.0-0.4); EOSINOPHILS % 5.9 % (0.0-6.0); HEMATOCRIT 26.5 % (38.2-49.6); HEMOGLOBIN 8.2 g/dL (14.0-18.0); LYMPHOCYTES % 18.1 % (18.0-39.1); MEAN CORPUSCULAR HGB CONC 30.9 g/dL (31-35); MEAN CORPUSCULAR VOLUME 87.2 fL (81-99); MONOCYTES # (AUTO) 0.6 (0.2-0.8); MONOCYTES % 10.1 % (4.4-11.3); NEUTROPHILS # (AUTO) 3.6 (2.1-6.9); NEUTROPHILS % 64.3 % (38.7-80.0); PLATELET COUNT 341 x10e3/uL (140-360); RED BLOOD COUNT 3.04 x10e6/uL (4.3-5.7)
[2019-02-23] MEDS: LEVOTHYROXINE SODIUM 88 MCG TAB PO SCH (09:05)
[2019-02-23] MEDS: ASPIRIN 81 MG ENTERIC COATED PO SCH (09:05)
[2019-02-23] MEDS: CILOSTAZOL 100 MG TAB PO SCH ×2 (09:05→16:36)
[2019-02-23] MEDS: FUROSEMIDE INJ 10 MG/ML 4 ML VIAL IV SCH ×2 (09:05→16:36)
[2019-02-23] MEDS: APIXABAN 5 MG TABLET PO SCH ×2 (09:05→16:36)
[2019-02-23] MEDS: AMIODARONE HCL 200 MG TAB PO SCH (09:05)
[2019-02-23] MEDS: METOPROLOL SUCCINATE 50 MG TAB XL PO SCH ×2 (09:05→16:36)
[2019-02-23] MEDS: BALSAM PERU/CASTOR OIL 60 GM OINT...G. TP SCH (09:05)
--- NOTE | 2019-02-23 09:05 | NUR ---
Pt received resting in bed, on airborne isolation for Pseudomonas in sputum. All meds given as ordered. Will monitor Addendum: 02/23/19 at 1939 by Dennise Tolbert RN Pt is on droplet isolation
[2019-02-23] MEDS: POTASSIUM CHLORIDE 20 MEQ TAB CR PO SCH (09:06)
--- NOTE | 2019-02-23 10:43 | NUR ---
SPOKE WITH PT AND HE BELIEVES HE WAS AT [facility] BUT WILL NOT SIGN A CHOICE FORM UNTIL WE ARE ABLE TO SPEAK WITH DAUGHTER. CALLED AND LEFT MESSAGE WITH JOSE ELIAS [phone] AND DANNIELLE [phone], WAITING YACHT MASTER BACK TO MOVE FORWARD WITH SNF.
--- NOTE | 2019-02-23 10:48 | NUR ---
JOSE ELIAS DAUGHTER CALLED BACK AND STATES SHE WOULD PREFER [facility], WILL FAX CLINICALS OR HAVE REP COME [employer] SUPERVISOR.
[2019-02-23] MEDS: TRAMADOL HCL 50 MG TAB PO PRN (11:54)
--- NOTE | 2019-02-23 13:37 | Progress Note ---
DATE: 02/23/2019 Cardiology Progress Note SUBJECTIVE: The patient is complaining of right-sided chest pain that began this morning. He denies shortness of breath, but is reporting a headache. OBJECTIVE: VITAL SIGNS: Temperature 98.1 degrees, pulse 86, respiratory rate 19, blood pressure 162/75, oxygen saturation 93% on 4 L nasal cannula. GENERAL: Elderly man, frail, in no acute distress, chronically ill appearing, awake and alert. LUNGS: Diminished breath sounds at bilateral bases. No wheezes or crackles. CARDIOVASCULAR: Normal rate, regular rhythm. No murmur. Normal S1, S2. ABDOMEN: Soft, nontender. EXTREMITIES: No edema. CARDIAC MEDICATIONS: Furosemide 40 mg IV b.i.d., metoprolol succinate 50 mg p.o. b.i.d., amiodarone 200 mg p.o. daily, apixaban 5 mg p.o. b.i.d., aspirin 81 mg p.o. daily, levothyroxine 88 mcg p.o. daily, cilostazol 100 mg p.o. b.i.d. LABORATORY DATA: WBC 5.64, hemoglobin 8.2, hematocrit 26.5, platelets 341. Sodium 138, potassium 4.6, chloride 107, CO2 of 27, BUN 9, creatinine 0.8. BNP is 59. TELEMETRY: Normal sinus rhythm. IMPRESSION: 1. Acute hypoxic respiratory failure, now extubated. 2. Atrial fibrillation with rapid ventricular response, currently sinus rhythm. 3. Multifocal pneumonia. 4. Altered mental status, improved. 5. Hypothyroidism. 6. Hypertension. 7. Hyperlipidemia. 8. Anemia. RECOMMENDATIONS: Continue current cardiac medications. The patient is diuresing well. We will continue Lasix. Follow creatinine. Monitor the patient closely on telemetry. Continue Eliquis for CVA prophylaxis. Thank you for this consult. We will continue to follow. Malena Crawford MD ABS/MODL /[id number]
--- NOTE | 2019-02-23 15:39 | NUR ---
Follow-up Note RD Recommendation(s) for Physician: - Continue regular diet as ordered; diet texture per TIN POURER - Continue Ensure Enlive/ Ensure Pudding BID w meals to promote PO intake - Rec appetite stimulant as medically appropriate Plan of Care: RD following, monitoring for tolerance and adequacy, ONS rec Nutrition reason for involvement: F/u RD Assessment 02/23: Pt discussed during am rounds, remains confused. Current diet and supplements appropriate. Pt eating 0-75% of meals and supplements. No GI distress reported by RN. Current rec's remain appropriate. Pt pending discharge to SNF. Will monitor and continue to follow. 02/16: Pt was discussed during AM rounds. Pt continued to be confused. Per RN, his appetite has slightly improved. Pt was drinking some of the Ensure ordered. Family refused PEG placement. No GI complains noted. Will continue to monitor and follow. 02/11: Pt was discussed during AM rounds. Per RN, pt continued to have poor appetite and only drank fluids. Pt ate small amount of Ensure Pudding today. RN requested for [place] Ensure for pt as pt was asking for strawberry drinks. Order has been placed. TIN POURER for therapy. Pt has had poor meal intake since admission. 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 Communicated RD rec with RN. Will continue to monitor and follow. 02/09: Visited pt in the room. Unable to obtain hx due to confusion. TIN POURER following for therapy. Per AUGUSTO Garcia, pt was not eating much but drank a lot of fluids. No GI issue reported. Will continue to monitor and follow. 01/26: Pt was transferred to ICU yesterday due to hypoxia. Unable to obtain info as pt was on BiPAP. Per AUGUSTO Hammond, PO intake was poor this AM that pt only drank some juices. No GI complains reported. No ONS was ordered since we last saw pt on 02/02. Order for Ensure pudding has been placed. If pt continued to have poor PO intake, please consult. Will continue to monitor and follow. 02/02: 88 YOM admitted for PNA with AMS and general weakness, pt seen today for LOS. Pt discussed during am rounds, continues with fluctuating mentation- oriented today. 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 Pt states UBW of 150# within the past few months, no significant change noted. Pt denies any GI distress. No family present at time of visit. Discussed supplements, pt receptive to Ensure pudding- recommend TID with meals. TIN POURER following, recommended nectar thick liquids. Encouraged po intake, pt verbalized understanding. Will monitor and continue to follow. Principal Problems/Diagnoses: AMS, PNA with hypoxia, generalized weakness PMH: CVA, pancreatitis, HTN GI: abdomen soft, flat, non-tender, flatus present, LBM - 02/21 Skin: skin tears to BUE Labs: 02/22: Na 138, K 4.6, BUN 9, Cr 0.8, Gluc 130 02/16: Na 132 L, Ca 7.8 L 02/11: Na 146 H, K 3.1 L, BUN 34 H, Glucose 146 H, Phos 1.9 L 02/09: Glucose 123 H, Ca 8.3 L 02/04: Glucose 142 H, Ca 8.2 L 02/01: Na 149, K 3.7, Gluc 144 Meds: lasix, KCl, eliquis, synthroid, abx Ht: 60.7 in Wt: 146.38 lb; 125.06lb; 119.44lb;124.38lb BMI: 27.9 IBW: 110 lb Malnutrition Evaluation (02/02/19) The patient does not meet criteria for a specified degree of malnutrition at this time. Will re-evaluate at follow-up as appropriate. Nutrition Prescription (Diet Order): Regular diet (chopped, nectar) Ensure Enlive, Ensure pudding BID Estimated Nutritional Needs: 1375 - 1925 calories/day (25-35 kcal/kg CBW) 55 - 83 g protein/day (1-1.5 g pro/kg CBW) Diet Adequacy: Not meeting calorie needs, Not meeting protein needs Diet Education Needs Assessment: Diet education not indicated due to AMS. Nutrition Care Level: Low Nutrition Diagnosis: Inadequate energy and protein intake related with AMS and current medical status as evidenced by poor intake currently and not meeting needs. Goal: Patient will meet 75-100% of estimated needs by follow up Progress: Some progress Interventions: - Oral nutrition supplements - Appetite stimulant Monitoring/Evaluation: Total energy intake, Total protein intake, Modified diet, Supplement, daily weight Signed: Rehana Velásquez RD, LD, [facility]
--- NOTE | 2019-02-23 19:00 | NUR ---
patient received awake, alert, lying quietly in bed. no c/o pain noted. patient turned and repositioned for comfort. hob elevated 40 degrees. /4l/hf/nc in use. respirations even and labored. pm assessment complete. patients call frederick placed within reach. patient instructed to call for assistance when needed.
[2019-02-23] MEDS: TAMSULOSIN HCL 0.4 MG CAP PO SCH (20:19)
[2019-02-23] MEDS: FINASTERIDE 5 MG TAB PO SCH (20:19)
[2019-02-24] VITALS (9 sets, daily range): BP systolic 73–106; BP diastolic 43–66
--- NOTE | 2019-02-24 | NUR ---
patient medicated with ultram 50 mg po for c/o headache 04/26 per patients request at this time.
[2019-02-24] MEDS: IPRATROPIUM BROMIDE 0.02% 2.5 ML NEB NEB SCH ×4 (01:00→19:52)
[2019-02-24] MEDS: METOPROLOL SUCCINATE 50 MG TAB XL PO SCH ×2 (09:00→16:09)
[2019-02-24] MEDS: BALSAM PERU/CASTOR OIL 60 GM OINT...G. TP SCH (09:12)
[2019-02-24] MEDS: LEVOTHYROXINE SODIUM 88 MCG TAB PO SCH (09:12)
[2019-02-24] MEDS: ASPIRIN 81 MG ENTERIC COATED PO SCH (09:12)
[2019-02-24] MEDS: APIXABAN 5 MG TABLET PO SCH ×2 (09:12→18:23)
[2019-02-24] MEDS: CILOSTAZOL 100 MG TAB PO SCH ×2 (09:12→18:23)
[2019-02-24] MEDS: FUROSEMIDE INJ 10 MG/ML 4 ML VIAL IV SCH ×2 (09:12→16:12)
[2019-02-24] MEDS: AMIODARONE HCL 200 MG TAB PO SCH (09:12)
[2019-02-24] MEDS ORDERED: POTASSIUM CHLORIDE 20MEQ/15ML UDC NG PRN (09:15)
[2019-02-24] MEDS: TRAMADOL HCL 50 MG TAB PO PRN ×2 (12:39)
--- NOTE | 2019-02-24 15:41 | NUR ---
SPOKE WITH DR. GONZALEZ REGARDING PATIENT'S BP OF 86/48 THAT WAS TAKEN MANUALLY. ORDER FOR 500CC BOLUS.
[2019-02-24] MEDS ORDERED: SODIUM CHLORIDE 0.9% 1000ML 1,000 ML IV ONE (16:00)
[2019-02-24] MEDS ORDERED: SODIUM CHLORIDE 0.9% 500ML 500 ML ONE (16:05)
[2019-02-24] MEDS ORDERED: SODIUM CHLORIDE 0.9% 500ML 500 ML IV ONE (16:15)
--- NOTE | 2019-02-24 19:00 | NUR ---
patient received awake, alert, sitting up in bed. respirations even and unlabored. 02/4l/hf/nc in use. patient denies pain at this time. pm assessment complete. patients call frederick placed within reach. patient instructed to call for assistance when needed.
--- NOTE | 2019-02-24 19:09 | NUR ---
BEDSIDE REPORT GIVEN TO ONCOMING NURSE. PATIENT IN STALE CONDITION WITH NO S/S OF RESPIRATORY DISTRESS.
--- NOTE | 2019-02-24 19:11 | Progress Note ---
DATE: 02/24/2019 Cardiology Progress Note SUBJECTIVE: The patient denies chest pain or shortness of breath. OBJECTIVE: VITAL SIGNS: Temperature 97.7 degrees, pulse 91, respiratory rate 17, blood pressure 86/48, and oxygen saturation 92%. GENERAL: Elderly man, frail, in no acute distress, chronically ill appearing, awake, and alert. LUNGS: Diminished breath sounds at bilateral bases. No wheezes or crackles. CARDIOVASCULAR: Normal rate. Regular rhythm. No murmur. Normal S1 and S2. ABDOMEN: Soft, nontender. EXTREMITIES: No edema. CARDIAC MEDICATIONS: Amiodarone 200 mg p.o. daily, apixaban 5 mg p.o. b.i.d., aspirin 81 mg p.o. daily, levothyroxine 88 mcg p.o. daily, cilostazol 100 mg p.o. b.i.d., losartan 25 mg p.o. b.i.d. p.r.n., furosemide 40 mg IV b.i.d., and metoprolol succinate 50 mg p.o. b.i.d. IMPRESSION: 1. Acute hypoxic respiratory failure, now extubated. 2. Atrial fibrillation with rapid ventricular response, currently sinus rhythm. 3. Multifocal pneumonia. 4. Altered mental status, improved. 5. Hypothyroidism. 6. Hypertension. 7. Hyperlipidemia. 8. Anemia. RECOMMENDATIONS: Continue current cardiac medications. The patient is diuresing well. Continue Lasix. Follow creatinine. Monitor patient closely on telemetry. Continue Eliquis for CVA prophylaxis. Thank you for this consult. We will continue to follow. Malena Crawford MD ABS/MODL /[id number]
[2019-02-24] MEDS: FINASTERIDE 5 MG TAB PO SCH (21:00)
[2019-02-24] MEDS: TAMSULOSIN HCL 0.4 MG CAP PO SCH (21:00)
[2019-02-24] MEDS: ZOLPIDEM TARTRATE 5 MG TAB PO PRN (21:23)
--- NOTE | 2019-02-24 21:23 | NUR ---
patient medicated with ambien 5 mg po for sleep per patients request.
[2019-02-25] VITALS (9 sets, daily range): BP systolic 73–115; BP diastolic 38–60
[2019-02-25] MEDS: IPRATROPIUM BROMIDE 0.02% 2.5 ML NEB NEB SCH ×4 (06:30→19:48)
[2019-02-25] MEDS ORDERED: SODIUM CHLORIDE 0.9% 250ML 250 ML IV NR (09:00)
[2019-02-25] MEDS: AMIODARONE HCL 200 MG TAB PO SCH (09:00)
[2019-02-25] MEDS: METOPROLOL SUCCINATE 50 MG TAB XL PO SCH ×2 (09:00→16:58)
[2019-02-25] MEDS: APIXABAN 5 MG TABLET PO SCH ×2 (09:01→17:23)
[2019-02-25] MEDS: LEVOTHYROXINE SODIUM 88 MCG TAB PO SCH (09:01)
[2019-02-25] MEDS: ASPIRIN 81 MG ENTERIC COATED PO SCH (09:01)
[2019-02-25] MEDS: BALSAM PERU/CASTOR OIL 60 GM OINT...G. TP SCH (09:02)
[2019-02-25] MEDS: CILOSTAZOL 100 MG TAB PO SCH ×2 (09:02→17:23)
--- NOTE | 2019-02-25 09:29 | NUR ---
CALL PLACED OUT TO DR. QUISPE REGARDING CARDIAC MEDICATIONS AND PATIENT'S BP OF 74/38 (MANUALLY)- AWAITING CALLBACK)
[2019-02-25] MEDS ORDERED: SODIUM CHLORIDE 0.9% 250ML 250 ML ONE (09:53)
[2019-02-25 10:13] LABS: BASOPHILS % 0.6 % (0.0-1.0); EOSINOPHILS # (AUTO) 0.2 (0.0-0.4); EOSINOPHILS % 3.5 % (0.0-6.0); HEMATOCRIT 29.5 % (38.2-49.6); LYMPHOCYTES # (AUTO) 0.9 (1.0-3.2); LYMPHOCYTES % 14.3 % (18.0-39.1); MEAN CORPUSCULAR HEMOGLOBIN 26.5 pg (28-32); MEAN CORPUSCULAR HGB CONC 30.5 g/dL (31-35); MONOCYTES # (AUTO) 0.7 (0.2-0.8); MONOCYTES % 11.8 % (4.4-11.3); NEUTROPHILS # (AUTO) 4.3 (2.1-6.9); PLATELET COUNT 357 x10e3/uL (140-360); RED BLOOD COUNT 3.39 x10e6/uL (4.3-5.7); RED CELL DISTRIBUTION WIDTH 21.7 % (11.7-14.4)
[2019-02-25 10:27] LABS: ANION GAP 9.1 mmol/L (8-16); BLOOD UREA NITROGEN 12 mg/dL (7-26); BUN/CREATININE RATIO 13 (6-25); CALCIUM 8.1 mg/dL (8.4-10.2); CARBON DIOXIDE 29 mmol/L (22-29); CHLORIDE 103 mmol/L (98-107); CREATININE, SERUM 0.89 mg/dL (0.72-1.25); EST GLOMERULAR FILTRATION RATE > 60 ML/MIN (60-); GLUCOSE 128 mg/dL (74-118); POTASSIUM 4.1 mmol/L (3.5-5.1); SODIUM 137 mmol/L (136-145)
--- NOTE | 2019-02-25 11:41 | NUR ---
DR. SETH ON THE UNIT- SPOKE TO DR. SETH ON THE PATIENT'S BP OF 74/38, 250CC BOLUS GIVEN, AND CURRENT BP TAKEN MANUALLY 96/42. NO ORDERS GIVEN.
--- NOTE | 2019-02-25 15:32 | Progress Note ---
DATE: 02/25/2019 Cardiology Progress Note SUBJECTIVE: The patient denies chest pain or shortness of breath, but he is complaining of some dizziness. OBJECTIVE: VITAL SIGNS: Temperature 98 degrees, pulse 98, respiratory rate 20, blood pressure 97/55, and oxygen saturation 93% on nasal cannula. GENERAL: Elderly man, frail, no acute distress, chronically ill appearing, awake and alert. LUNGS: Diminished breath sounds at bilateral bases. No wheezes or crackles. CARDIOVASCULAR: Normal rate. Regular rhythm. No murmur. Normal S1, S2. ABDOMEN: Soft, nontender. EXTREMITIES: No edema. CARDIAC MEDICATIONS: Cilostazol 100 mg p.o. b.i.d., apixaban 5 mg p.o. b.i.d., aspirin 81 mg p.o. daily, levothyroxine 88 mcg p.o. daily, and amiodarone 200 mg p.o. daily. LABORATORY DATA: WBC 6.21, hemoglobin 9, hematocrit 29.5, and platelets 357. Sodium 137, potassium 4.1, chloride 103, CO2 29, BUN 12, and creatinine 0.89. IMPRESSION: 1. Acute hypoxic respiratory failure, now extubated. 2. Atrial fibrillation with rapid ventricular response, currently sinus rhythm. 3. Multifocal pneumonia. 4. Hypotension. 5. Altered mental status, improved. 6. Hypothyroidism. 7. Hypertension. 8. Hyperlipidemia. 9. Anemia. RECOMMENDATIONS: Hold Lasix for now. The patient has been given NS bolus given his hypotension. Monitor respiratory status closely. Continue current cardiac medications otherwise. Monitor the patient closely on telemetry. Continue Eliquis for CVA prophylaxis. Thank you for this consult. We will continue to follow. Malena Crawford MD ABS/MODL /[id number]
--- NOTE | 2019-02-25 19:16 | NUR ---
PATIENT IN STABLE CONDITION WITH NO S/S OF RESPIRATORY DISTRESS. NO PAIN VOICED. O2 AND TELEMETRY APPLIED. DIAPER APPLIED. ALLEVYN APPLIED TO SACRUM AND BILATERAL HEELS. HEEL PROTECTORS APPLIED AND BILATERAL FEET ON TOP OF A PILLOW. BED ALARM ON. BEDSIDE REPORT GIVEN TO ONCOMING NURSE.
[2019-02-25] MEDS: ZOLPIDEM TARTRATE 5 MG TAB PO PRN (22:23)
[2019-02-25] MEDS: TAMSULOSIN HCL 0.4 MG CAP PO SCH (22:23)
[2019-02-25] MEDS: FINASTERIDE 5 MG TAB PO SCH (22:23)
[2019-02-25] MEDS: TRAMADOL HCL 50 MG TAB PO PRN (22:23)
[2019-02-26] VITALS (8 sets, daily range): BP systolic 84–109; BP diastolic 52–65
[2019-02-26] MEDS: IPRATROPIUM BROMIDE 0.02% 2.5 ML NEB NEB SCH ×4 (01:15→19:28)
--- NOTE | 2019-02-26 07:24 | NUR ---
Patient endorsed to next shift for continuity of care.
[2019-02-26] MEDS: METOPROLOL SUCCINATE 50 MG TAB XL PO SCH ×2 (09:23→17:00)
[2019-02-26] MEDS: ASPIRIN 81 MG ENTERIC COATED PO SCH (09:23)
[2019-02-26] MEDS: APIXABAN 5 MG TABLET PO SCH ×2 (09:23→18:36)
[2019-02-26] MEDS: BALSAM PERU/CASTOR OIL 60 GM OINT...G. TP SCH (09:23)
[2019-02-26] MEDS: CILOSTAZOL 100 MG TAB PO SCH ×2 (09:23→18:36)
[2019-02-26] MEDS: LEVOTHYROXINE SODIUM 88 MCG TAB PO SCH (09:23)
[2019-02-26] MEDS: AMIODARONE HCL 200 MG TAB PO SCH (09:23)
--- NOTE | 2019-02-26 09:23 | NUR ---
Pt received resting in bed. Alert and oriented x4 but legally blind. Pt on droplet & contact isolation for Pseudomonas in sputum. Oriented to staff and surroundings. Emotional support given. Call frederick within reach. Will monitor
[2019-02-26] MEDS: TRAMADOL HCL 50 MG TAB PO PRN ×2 (10:43→18:36)
[2019-02-26] MEDS ORDERED: LORAZEPAM 0.5 MG TAB PO PRN (11:30)
--- NOTE | 2019-02-26 12:40 | NUR ---
BP 84/58 while sitting in recliner. BP 84/40 manually. Assisted into bed, and pt's BP 110/[address] Crawford notified, advised not to send pt to group home because pt is not stable. Dr. Mallory notified. No further instructions given. Will monitor
[2019-02-26] MEDS: ACETAMINOPHEN 325 MG TAB PO PRN (14:26)
[2019-02-26] MEDS: ALPRAZOLAM 0.25 MG TAB PO PRN (14:26)
--- NOTE | 2019-02-26 17:02 | NUR ---
ATTEMPTED TO GET IMM SIGNED X2, BUT PT'S BP TOO LOW AND HE WAS RESTING. 3PM ROUNDS; NOTIFIED.
--- NOTE | 2019-02-26 18:29 | Diagnostic Imaging Report ---
EXAMINATION: CHEST SINGLE (PORTABLE) INDICATION: Hypoxia ^hypoxia ^[id number] ^[id number] COMPARISON: 4 06/24/2019 FINDINGS: TUBES and LINES: Unchanged left-sided PICC which terminates in the brachiocephalic confluence. LUNGS: There is decreasing confluent opacity within the right midlung and right lower lung. Mild perihilar and interstitial opacities. Interval development of patchy left basilar opacities. PLEURA: No pleural effusion or pneumothorax. HEART AND MEDIASTINUM: The cardiomediastinal silhouette is unremarkable. BONES AND SOFT TISSUES: No acute osseous abnormality. Diffuse osteopenia. UPPER ABDOMEN: No free air under the diaphragm. IMPRESSION: Decreasing multifocal opacities, consistent with clinical history of pneumonia. Suggest follow-up chest radiograph in 6-8 weeks to assess for resolution. Mild pulmonary interstitial edema. Signed by: Dr. Javier Gil M.D. on 02/26/2019 6:25 PM
--- NOTE | 2019-02-26 19:00 | NUR ---
Received patient from day nurse, patient is stable.
--- NOTE | 2019-02-26 19:00 | NUR ---
Received patient from day nurse, patient is stable.
--- NOTE | 2019-02-26 20:24 | Progress Note ---
DATE: 02/26/2019 Cardiology Progress Note SUBJECTIVE: The patient reports pain in his left side that is worse with inspiration. Noted to be hypotensive this morning while seated. The patient endorses left-sided chest pain that is worse with inspiration. OBJECTIVE: VITAL SIGNS: Temperature 96.5 degrees, pulse 95, respiratory rate 20, blood pressure 107/65, and oxygen saturation 100% on 8 L nasal cannula. GENERAL: Elderly man, frail, in no acute distress, chronically ill appearing, awake and alert. LUNGS: Diminished breath sounds at bases. No wheezes or crackles. CARDIOVASCULAR: Normal rate. Regular rhythm. No murmur. Normal S1, S2. ABDOMEN: Soft, nontender. EXTREMITIES: No edema. CARDIAC MEDICATIONS: Amiodarone 200 mg p.o. daily, apixaban 5 mg p.o. b.i.d., aspirin 81 mg p.o. daily, levothyroxine 88 mcg p.o. daily, and cilostazol 100 mg p.o. b.i.d. LABORATORY DATA: None today. TELEMETRY: Sinus tachycardia. IMPRESSION: 1. Acute hypoxic respiratory failure with increasing oxygen requirements. 2. Atrial fibrillation with rapid ventricular response, currently sinus rhythm. 3. Multifocal pneumonia. 4. Hypotension. 5. Altered mental status, improved. 6. Hypothyroidism. 7. Hypertension. 8. Hyperlipidemia. 9. Anemia. 10. Mild systolic heart failure. RECOMMENDATIONS: Hold Lasix for now given hypotension requiring fluid boluses. However, the patient's oxygen requirements are increasing. We will obtain chest x-ray and monitor volume status closely. Continue current cardiac medications. Continue Eliquis for CVA prophylaxis. Maintain the patient on telemetry. Thank you for this consult. We will continue to follow. Malena Crawford MD ABS/MODL /[id number]
[2019-02-26] MEDS: FINASTERIDE 5 MG TAB PO SCH (22:31)
[2019-02-26] MEDS: TAMSULOSIN HCL 0.4 MG CAP PO SCH (22:31)
[2019-02-26] MEDS: ZOLPIDEM TARTRATE 5 MG TAB PO PRN (22:32)
[2019-02-27] VITALS (8 sets, daily range): BP systolic 88–120; BP diastolic 40–64
--- NOTE | 2019-02-27 | NUR ---
patient endorsed to next shift for continuity of care.
[2019-02-27] MEDS: TRAMADOL HCL 50 MG TAB PO PRN ×3 (00:55→16:50)
--- NOTE | 2019-02-27 01:37 | NUR ---
NO RESPIRATORY DISTRESS OBSERVED, PATIENT STILL C/O PAIN TO THE BACK WITH PAIN SCORE #4. ATTEMPTED TO REPOSITION THE PATIENT BUT HE REFUSED AND STATED "THEY JUST TURNED ME NOT TOO LONG AGO." CALL LIGHT WITHIN EASY REACH, BED ALARM ON.
[2019-02-27] MEDS: LEVOTHYROXINE SODIUM 88 MCG TAB PO SCH (06:27)
[2019-02-27] MEDS: ALPRAZOLAM 0.25 MG TAB PO PRN ×2 (06:30→16:50)
--- NOTE | 2019-02-27 06:31 | NUR ---
NO RESPIRATORY DISTRESS OBSERVED, PATIENT REQUEST XANAX FOR ANXIETY. ASSISTED WITH ADLS, CALL LIGHT WITHIN REACH AND BED ALARM ON.
[2019-02-27] MEDS: ASPIRIN 81 MG ENTERIC COATED PO SCH (08:44)
[2019-02-27] MEDS: BALSAM PERU/CASTOR OIL 60 GM OINT...G. TP SCH (08:45)
[2019-02-27] MEDS: AMIODARONE HCL 200 MG TAB PO SCH (08:45)
[2019-02-27] MEDS: APIXABAN 5 MG TABLET PO SCH ×2 (08:45→19:25)
--- NOTE | 2019-02-27 08:45 | NUR ---
Pt received resting in bed. Emotional support given call frederick within reach. Vitals stable. Will monitor
[2019-02-27] MEDS: METOPROLOL SUCCINATE 50 MG TAB XL PO SCH ×2 (08:46→17:00)
--- NOTE | 2019-02-27 11:38 | Progress Note ---
DATE: 02/27/2019 SUBJECTIVE: The patient is an 88-year-old male, who came in with aspiration pneumonia, atrial fibrillation, hypertension, sepsis, hypothyroidism, and history of heart failure. The patient is currently feeling better compared to the last time I saw him, talkative, and no chest pain or shortness of breath noted. OBJECTIVE: VITAL SIGNS: Temperature is 98.4, pulse 102, blood pressure is 89/50, and pulse oximetry of 96% on 7 L of oxygen. HEENT: Normocephalic, atraumatic. The patient is blind. CVS: S1, S2 regular. ABDOMEN: Nontender, nondistended, soft. EXTREMITIES: No edema. LABORATORY VALUES: Last one was hemoglobin of 9, hematocrit of 29.5. Chemistries show a BUN of 12, creatinine 0.89 with a glucose of 128. Coags have been normal. D-dimer was 1.35 yesterday. ASSESSMENT: 1. Acute hypoxia with sepsis with acute respiratory failure with history of multifocal pneumonia. 2. Atrial fibrillation with rapid ventricular response, currently in and out of sinus rhythm. 3. Multifocal pneumonia. 4. Hypothyroidism. 5. Anemia. 6. Hypertension. 7. History of acute renal insufficiency, better now. PLAN: Plan is to continue with monitoring the patient. The patient will need long-term rehab facility therapy and the patient will be continued on current medications at this time. Further recommendation per clinical course. Cardiac matos, maintain him on telemetry monitoring. MD PHILLIP Abdullahi/MODL /[id number]
--- NOTE | 2019-02-27 11:38 | Progress Note ---
DATE: 02/27/2019 Cardiology Progress Note SUBJECTIVE: The patient is without any new complaints. However, he continues to endorse some shortness of breath and fatigue. Denies any chest pain. No fever. OBJECTIVE: VITAL SIGNS: Temperature 97.7, pulse 101, respiratory rate 20, blood pressure 101/54, and oxygen saturation 98% on 8 L nasal cannula. GENERAL: Alert and oriented x3. Resting comfortably in bed. Chronically ill-appearing. Does not appear to be in any acute distress. LUNGS: Diminished breath sounds throughout with scattered rhonchi. No wheezing noted. CARDIOVASCULAR: Normal rate and rhythm. Tachycardic. No murmurs. No gallops. ABDOMEN: Soft, nontender. LOWER EXTREMITIES: No edema. 2+ palpable pulses. CARDIOVASCULAR MEDICATIONS: Eliquis 5 mg p.o. b.i.d., amiodarone 200 mg p.o. daily, aspirin 81 mg p.o. daily, metoprolol 5 mg q.4 hours p.r.n. for elevated heart rate, and metoprolol 50 mg p.o. b.i.d. LABS: No new labs today. TELEMETRY: Sinus rhythm. IMPRESSION: 1. Acute hypoxic respiratory failure with increasing oxygen demand. Continues to be on oxygen at this time. 2. Atrial fibrillation with rapid ventricular response. Remains in sinus tachycardia at this time. 3. Multifocal pneumonia. 4. Hypotension. 5. Altered mental status, now resolved. 6. Hypothyroidism. 7. . 8. Hyperlipidemia. 9. Anemia. 10. Mild systolic heart failure. RECOMMENDATION: Hold Lasix for now given recent hypotension requiring boluses. However, the patient's oxygen demand continued increasing. X-ray was completed yesterday with mild pulmonary interstitial edema and decreasing multifocal opacities noted. Continue Eliquis for CVA prophylaxis. Maintain the patient on telemetry. Monitor the patient closely. Dictated by Aaliyah Faria NP MD ADEEL Alvarado/ANGELES /[id number]
--- NOTE | 2019-02-27 19:37 | NUR ---
PATIENT C/O PAIN TO THE LEFT HIP WITH PAIN SCORE #7, TYLENOL OFFER BUT HE REFUSED IT AND STATED "TYLENOL IS NOT GOOD FOR MY STOMACH. I WILL WAIT TO TAKE THE TRAMADOL." NO RESPIRATORY DISTRESS OBSERVED, CALL LIGHT WITHIN EASY REACH.
[2019-02-27] MEDS: ZOLPIDEM TARTRATE 5 MG TAB PO PRN (20:55)
--- NOTE | 2019-02-27 20:56 | NUR ---
PATIENT REQUEST SLEEP AID, MEDICATED WITH AMBIEN ORDERED. BED ALARM ON, CALL LIGHT WITHIN EASY REACH.
[2019-02-28] VITALS (8 sets, daily range): BP systolic 99–121; BP diastolic 54–63
[2019-02-28] MEDS: TRAMADOL HCL 50 MG TAB PO PRN ×3 (00:17→22:27)
--- NOTE | 2019-02-28 00:18 | NUR ---
PATIENT MEDICATED WITH TRAMADOL FOR PAIN TO THE LEFT HIP, CALL LIGHT IN EASY REACH AND BED ALARM ON. WILL CONTINUE TO CLOSELY MONITOR.
--- NOTE | 2019-02-28 04:06 | NUR ---
PATIENT IS SOUNDLY ASLEEP, NO RESPIRATORY DISTRESS OBSERVED. BED ALARM ON, CALL LIGHT WITHIN EASY REACH.
[2019-02-28] MEDS: LEVOTHYROXINE SODIUM 88 MCG TAB PO SCH (05:50)
[2019-02-28 07:05] LABS: BASOPHILS % 0.5 % (0.0-1.0); EOSINOPHILS # (AUTO) 0.3 (0.0-0.4); EOSINOPHILS % 4.9 % (0.0-6.0); HEMATOCRIT 28.1 % (38.2-49.6); HEMOGLOBIN 8.5 g/dL (14.0-18.0); LYMPHOCYTES # (AUTO) 1.3 (1.0-3.2); LYMPHOCYTES % 22.8 % (18.0-39.1); MEAN CORPUSCULAR HEMOGLOBIN 26.6 pg (28-32); MEAN CORPUSCULAR HGB CONC 30.2 g/dL (31-35); MEAN CORPUSCULAR VOLUME 87.8 fL (81-99); MONOCYTES # (AUTO) 0.7 (0.2-0.8); MONOCYTES % 11.8 % (4.4-11.3); NEUTROPHILS # (AUTO) 3.3 (2.1-6.9); NEUTROPHILS % 59.3 % (38.7-80.0); PLATELET COUNT 280 x10e3/uL (140-360); RED CELL DISTRIBUTION WIDTH 21.4 % (11.7-14.4)
[2019-02-28 07:23] LABS: ALANINE AMINOTRANSFERASE 19 IU/L (0-55); ALBUMIN 1.8 g/dL (3.5-5.0); ALBUMIN/GLOBULIN RATIO 0.6 (0.8-2.0); ALKALINE PHOSPHATASE 97 IU/L (40-150); ANION GAP 8.3 mmol/L (8-16); BLOOD UREA NITROGEN 8 mg/dL (7-26); BUN/CREATININE RATIO 11 (6-25); CALCIUM 8.1 mg/dL (8.4-10.2); CARBON DIOXIDE 31 mmol/L (22-29); CHLORIDE 103 mmol/L (98-107); CREATININE, SERUM 0.71 mg/dL (0.72-1.25); EST GLOMERULAR FILTRATION RATE > 60 ML/MIN (60-); GLUCOSE 85 mg/dL (74-118); POTASSIUM 4.3 mmol/L (3.5-5.1); SODIUM 138 mmol/L (136-145)
--- NOTE | 2019-02-28 09:07 | Progress Note ---
DATE: 02/28/2019 SUBJECTIVE: The patient is currently on alprazolam, amiodarone, Eliquis, aspirin, BuSpar, furosemide, guaifenesin, levothyroxine, metoprolol, tramadol, and zolpidem. The patient is currently asymptomatic. No chest pain or shortness of breath. He is feeling better and in good spirits. OBJECTIVE: VITAL SIGNS: Temperature is 96.1, pulse of 92, respirations 17, blood pressure is 121/61, pulse oximetry of 99%. HEENT: Normocephalic and atraumatic. The patient is blind. CVS: S1, S2. Normal rate and rhythm. No murmurs, no gallops. ABDOMEN: Soft and nontender. EXTREMITIES: No edema. LABORATORY DATA: The patient's labs; today hemoglobin is 8.5, hematocrit of 28.1 with microcytic indices. Chemistries; sodium 138, potassium of 4.3, BUN and creatinine are within normal limits. The patient's GFR is above 60. ASSESSMENT: 1. Acute hypoxic respiratory failure. 2. Multifocal pneumonia. Continue with current monitoring. 3. Hypertension. Continue with antihypertensive agents. 4. Altered mental status, better now. 5. Delirium, better now. 6. Hypothyroidism. Continue with thyroid medication. 7. Anemia of chronic disease and of iron deficiency. Check iron level. 8. Heart failure, systolic. Continue with monitoring his fluid intake and outtake. 9. Atrial fibrillation. Converted to sinus right now. Continue with amiodarone and also Eliquis. Further recommendation per clinical course. We will continue to monitor the patient along with the consultants. The patient is definitely getting better. Probably will need SNF or LTAC depending on progression of the disease. MD ROSY AbdullahiJ/MODL /[id number]
--- NOTE | 2019-02-28 09:20 | NUR ---
Pt received resting in bed. All meds given as ordered. Call frederick within reach. Will monitor
[2019-02-28] MEDS: AMIODARONE HCL 200 MG TAB PO SCH (09:50)
[2019-02-28] MEDS: METOPROLOL SUCCINATE 50 MG TAB XL PO SCH ×2 (09:50→17:30)
[2019-02-28] MEDS: APIXABAN 5 MG TABLET PO SCH ×2 (09:50→17:30)
[2019-02-28] MEDS: BALSAM PERU/CASTOR OIL 60 GM OINT...G. TP SCH (09:50)
[2019-02-28] MEDS: ALPRAZOLAM 0.25 MG TAB PO PRN ×2 (09:50→17:30)
--- NOTE | 2019-02-28 11:22 | Progress Note ---
DATE: 02/28/2019 Cardiology Progress Note SUBJECTIVE: The patient reports being quite tired this morning. Denies any chest pain. Does endorse some shortness of breath that is worse when he is up and about. OBJECTIVE: VITAL SIGNS: Temperature 96.1, pulse 92, respiratory rate 17, blood pressure 121/61, oxygen saturation 97% on 7 L nasal cannula. GENERAL: Alert and oriented x3. Resting comfortably in bed. Does not appear to be in any acute distress. NECK: Supple. No JVD noted. CARDIOVASCULAR: Regular rate and rhythm. Normal S1, S2. No gallops, no murmurs. LUNGS: Diminished breath sounds throughout. No rhonchi, no crackles. No wheezing noted. LOWER EXTREMITIES: No edema. 2+ palpable pulses. CARDIOVASCULAR MEDICATIONS: Eliquis 5 mg p.o. b.i.d., amiodarone 200 mg p.o. daily, aspirin 81 mg p.o. daily, metoprolol 5 mg q.4 hours p.r.n. for elevated heart rate, metoprolol 50 mg p.o. b.i.d. LABORATORY DATA: WBC 5.40, hemoglobin 8.5, hematocrit 28.1, platelet 280. Sodium 138, potassium 4.3, BUN 8, creatinine 0.71. GFR greater than 60. Calcium 8.1. Telemetry remains in sinus rhythm. IMPRESSION: 1. Acute hypoxic respiratory failure requiring oxygen. 2. Atrial fibrillation with rapid ventricular response. Remain in sinus rhythm at this point. 3. Multifocal pneumonia. 4. Hypotension. Blood pressure is slightly improved. 5. Altered mental status that is now resolved. 6. Hypothyroidism. 7. Hyperlipidemia. 8. Anemia. 9. Mild systolic heart failure. RECOMMENDATIONS: Discontinue aspirin. Continue anticoagulation with Eliquis for CVA prophylaxis. Lasix is on hold at this time given recent hypotension requiring IV fluid boluses. If blood pressure stabilizes, resume Lasix. Mild pulmonary interstitial edema noted on recent x-ray. Maintain this patient on telemetry at all times and continue to monitor very closely. Dictated by Aaliyah Faria NP MD ADEEL Alvarado/ANGELES /[id number]
--- NOTE | 2019-02-28 20:17 | NUR ---
RECEIVED PT IN BED AOX3 .RESPIRATIONS ARE EVEN AND UNLABORED .DENIES PAIN CALL LIGHT WITH IN REACH .CONTINUE TO MONITOR
[2019-02-28] MEDS: ZOLPIDEM TARTRATE 5 MG TAB PO PRN (22:26)
[2019-03-01] VITALS (8 sets, daily range): BP systolic 96–163; BP diastolic 51–65
[2019-03-01] MEDS: LEVOTHYROXINE SODIUM 88 MCG TAB PO SCH (06:26)
--- NOTE | 2019-03-01 06:32 | NUR ---
PT RESTED DURING THE NIGHT AND DENIES PAIN AT THIS TIME .CALL LIGHT WITH IN REACH .CONTINUE TO MONITOR
--- NOTE | 2019-03-01 07:23 | NUR ---
REPORT GIVEN TO THE ONCOMING NURSE
--- NOTE | 2019-03-01 07:45 | NUR ---
PATIENT IN STABLE CONDITION WITH NO S/S OF RESPIRATORY DISTRESS. NO PAIN VOICED. TELEMETRY AND O2 APPLIED. HUMPHREYS INTACT AND DRAINING. BED ALARM ON. CALL LIGHT IS WITHIN REACH, PATIENT INSTRUCTED TO CALL FOR ASSISTANCE NEEDED.
[2019-03-01] MEDS: BALSAM PERU/CASTOR OIL 60 GM OINT...G. TP SCH (09:00)
[2019-03-01] MEDS: APIXABAN 5 MG TABLET PO SCH ×2 (09:00→16:28)
[2019-03-01] MEDS: METOPROLOL SUCCINATE 50 MG TAB XL PO SCH ×2 (09:00→16:37)
[2019-03-01] MEDS: AMIODARONE HCL 200 MG TAB PO SCH (09:00)
--- NOTE | 2019-03-01 10:35 | NUR ---
ORDERS TO DC TO [facility] TODAY CM SPOKE WITH SKYLAR WHO CONFIRMS AUTH IS STILL GOOD PT GOING TO ROOM 202 RTF ON CHART
--- NOTE | 2019-03-01 12:20 | NUR ---
COURTESY CALL PLACED OUT TO THE PATIENT'S DAUGHTER, JOSE ELIAS, TO INFORM HER THE PATIENT WILL BE TRANSFERRING TO [facility] ROOM 202.
--- NOTE | 2019-03-01 12:35 | NUR ---
REPORT CALLED TO [facility]- SPOKE WITH FERMÍN NIETO AT 1223. PATIENT TRANSFERRING TO ROOM 202.
--- NOTE | 2019-03-01 15:12 | Progress Note ---
DATE: 03/01/2019 Cardiology Progress Note SUBJECTIVE: The patient reports he has left sided pain that is worse with coughing. He also endorses shortness of breath. OBJECTIVE: VITAL SIGNS: Temperature 96.5 degrees, pulse 85, respiratory rate 17, blood pressure 111/61, oxygen saturation 96% on room air. GENERAL: Awake, alert, chronically ill-appearing man, frail and no acute distress. LUNGS: Diminished breath sounds at the bases. No wheezes or crackles. CARDIOVASCULAR: Normal rate, regular rhythm. Normal S1, S2. ABDOMEN: Soft, nontender. EXTREMITIES: No edema. CARDIAC MEDICATIONS: Metoprolol succinate 50 mg p.o. b.i.d., amiodarone 200 mg p.o. daily, apixaban 5 mg p.o. b.i.d., levothyroxine 80 mcg p.o. daily. LABORATORY DATA: None today. TELEMETRY: Normal sinus rhythm. IMPRESSION: 1. Acute hypoxic respiratory failure requiring oxygen. 2. Atrial fibrillation with RVR currently in sinus rhythm. 3. Multifocal pneumonia. 4. Hypotension. 5. Hypothyroidism. 6. Hyperlipidemia. 7. Anemia. 8. Mild systolic heart. 9. Hypertension, recently hypotensive. 10. Altered mental status, resolved. RECOMMENDATIONS: Continue current cardiac medications. Would recommend resuming Lasix given edema on chest x-ray. Continue supplemental oxygen. Continue current cardiac medications. Thank you for this consult. We will continue to follow. Malena Crawford MD ABS/MODL /[id number]
--- NOTE | 2019-03-01 15:46 | NUR ---
SHELTER FACILITY DISCHARGE INFORMATION PATIENT HAS BEEN ACCEPTED TO: NAME: [facility] ADDRESS: [address] [facility], [place] [address] ACCEPTING DATABASE SUPPORT: ACCEPTING : LISA ROOM: 202 NURSE CALL REPORT TO: IMM SIGNED AND OBTAINED (if applicable): IMM SIGNED THE FOLLOWING DOCUMENTS MUST ACCOMPANY PATIENT FOR TRANSFER: COPIED CHART: BY FAMILY MEDIATOR RTF: COMPLETED BY JESSE BOYD [id number] DNR: SIGNED BY DR. GONZALEZ AND FAXED BACK TO HOSPITAL.
--- NOTE | 2019-03-01 16:53 | NUR ---
SPOKE WITH DR. GONZALEZ REGARDING PATIENT AND PATIENT'S DAUGHTER CONCERN OF URETHRA AREA BURNING/DISCOMFORT AT URETHRA SITE- NEW ORDER RECEIVED FOR IV ROCEPHIN 1 GRAM Q24H
--- NOTE | 2019-03-01 17:22 | NUR ---
CREATIVE GURU AND RN SPOKE WITH THE PATIENT AND HIS DAUGHTER, JOSE ELIAS, REGARDING CODE STATUS FOR THE PATIENT'S TRANSFER TO [facility]. PATIENT AND DAUGHTER GAVE CONSENT TO TRANSFER A FULL CODE STATUS TO [facility].
--- NOTE | 2019-03-01 17:44 | NUR ---
CALLED AND SPOKE WITH FERMÍN NIETO FROM [facility] TO UPDATE FISHER LOBSTER THAT THE PATIENT WILL TRANSFER WITH PICC LINE IN PLACE AND [facility].
[2019-03-01] MEDS ORDERED: CEFTRIAXONE SOD 1 GM/NS 50 ML 50 ML IV SCH (18:00)
[2019-03-01] MEDS ORDERED: CEFTRIAXONE SOD 1 GM VIAL IV SCH (19:00)
--- NOTE | 2019-03-01 19:38 | NUR ---
PATIENT IN STABLE CONDITION WITH NO S/S OF RESPIRATORY DISTRESS. NO PAIN VOICED. O2 AT 6L HIGH FLOW APPLIED. HUMPHREYS INTACT AND DIAPER APPLIED. ALLEVYN PAD APPLIED. BED ALARM ON. CALL LIGHT IS WITHIN REACH, PATIENT INSTRUCTED TO CALL FOR ASSISTANCE NEEDED. BEDSIDE REPORT GIVEN TO ONCOMING NURSE.
--- NOTE | 2019-03-01 21:19 | NUR ---
PT IS DISCHARGED TO [facility] NO ACUTE DISTRESS NOTED .PERSONAL BELONGINGS GIVE TO THE PT
[2019-03-02] VITALS: BP 101/43
--- NOTE | 2019-03-02 06:11 | Discharge Summary ---
DISCHARGE DIAGNOSES: Pneumonia with Pseudomonas, acute respiratory failure with hypoxia, anorexia, atrial fibrillation with rapid ventricular response, sepsis secondary to Pseudomonas pneumonia. DISPOSITION: The patient was transferred to halfway facility. HISTORY OF PRESENT ILLNESS: The patient is an elderly gentleman, who presented with acute sepsis from pneumonia, which turned out to be Pseudomonas, where he has initial hemoptysis. He was brought in, placed on IV antibiotics, placed in the ICU, was seen by Infectious Disease and Pulmonary as well as Cardiology because at one point the patient does have atrial fibrillation with RVR, but as the patient improved with the antibiotics he was able to maintain normal sinus rhythm, but at times did have some evidence of hypotension that resolved with discontinuing his blood pressure medicine. The patient had a slow progress, where he was anorexic for a while as well as under a lot of anxiety because unfortunately the patient's while he was in the hospital. At time of discharge, he seemed to be improving and he was then transferred to halfway facility for further care. Please see hospital chart for full details. MD LAUREEN Macedo/ANGELES /[id number]
== END 2019-03-01 21:11 | DRG 871 ==
LOC: ER 14:49 → ERHOLD 19:34 → MED/SURG 21:20 → IMCU 01-30 03:30 → ICU 01-30 09:00 → IMCU 02-01 10:23 → ICU 02-03 14:19 → MED/SURG3 02-18 13:34
PROVIDERS: ADMIT Internal Medicine; ATTEND Internal Medicine
PROC: 0BH17EZ Insertion of Endotracheal Airway into Trachea, Via Natural or Artificial Opening (ICD-10-PCS; principal; 2019-01-30)
PROC: 5A09457 Assistance with Respiratory Ventilation, 24-96 Consecutive Hours, Continuous Positive Airway Pressure (ICD-10-PCS; 2019-01-30)
PROC: 02HV33Z Insertion of Infusion Device into Superior Vena Cava, Percutaneous Approach (ICD-10-PCS; 2019-01-30)
PROC: B548ZZA Ultrasonography of Superior Vena Cava, Guidance (ICD-10-PCS; 2019-01-30)
PROC: 0W993ZX Drainage of Right Pleural Cavity, Percutaneous Approach, Diagnostic (ICD-10-PCS; 2019-02-08)
DX: A41.9 Sepsis, unspecified organism (principal); J15.1 Pneumonia due to Pseudomonas; J80 Acute respiratory distress syndrome; J96.21 Acute and chronic respiratory failure with hypoxia; B37.1 Pulmonary candidiasis; J69.0 Pneumonitis due to inhalation of food and vomit; G92 Toxic encephalopathy; I50.23 Acute on chronic systolic (congestive) heart failure; I13.0 Hypertensive heart and chronic kidney disease with heart failure and stage 1 through stage 4 chronic kidney disease, or unspecified chronic kidney disease; R04.2 Hemoptysis; J90 Pleural effusion, not elsewhere classified; B37.49 Other urogenital candidiasis; E87.1 Hypo-osmolality and hyponatremia; N18.3 Chronic kidney disease, stage 3 (moderate); J44.9 Chronic obstructive pulmonary disease, unspecified; Z91.81 History of falling; Z88.1 Allergy status to other antibiotic agents; Z88.8 Allergy status to other drugs, medicaments and biological substances; I48.91 Unspecified atrial fibrillation; E78.5 Hyperlipidemia, unspecified; Z87.891 Personal history of nicotine dependence; R55 Syncope and collapse; F41.9 Anxiety disorder, unspecified; N40.0 Benign prostatic hyperplasia without lower urinary tract symptoms; Z82.49 Family history of ischemic heart disease and other diseases of the circulatory system; I50.9 Heart failure, unspecified; R41.82 Altered mental status, unspecified; E03.9 Hypothyroidism, unspecified; E87.70 Fluid overload, unspecified; R13.10 Dysphagia, unspecified; R53.81 Other malaise; Z16.24 Resistance to multiple antibiotics; R63.0 Anorexia; Z68.22 Body mass index [BMI] 22.0-22.9, adult; I95.9 Hypotension, unspecified; D63.8 Anemia in other chronic diseases classified elsewhere; I48.0 Paroxysmal atrial fibrillation; Z79.01 Long term (current) use of anticoagulants; N28.9 Disorder of kidney and ureter, unspecified; R65.20 Severe sepsis without septic shock
CPT/HCPCS: 32555; 36415; 36569; 36600; 71045; 71046; 71250; 71260; 74176; 74230; 74470; 76604; 80048; 80053; 80202; 81001; 82150; 82550; 82553; 82805; 82945; 83540; 83605; 83615; 83735; 83880; 84100; 84145; 84157; 84436; 84443; 84466; 84479; 84484; 85025; 85027; 85379; 85610; 85730; 87040; 87070; 87071; 87086; 87116; 87186; 87205; 87206; 88112; 88305; 89051; 93005; 93306; 94002; 94640; 94660; 94667; 96360; 97139; 99284; J0330; J0456; J0692; J0696; J1160; J1450; J1650; J1756; J1940; J2060; J2185; J2250; J2270; J2405; J2920; J2997; J3370; J7030; J7040; J7042; J7050; J7060; J7070; Q9967